=== PATIENT | male | born 1965 | race Caucasian/White ===

== ENCOUNTER 2020-02-21 11:47 | Emergency (ER) | payer OTHER, SELFPAY ==
[2020-02-21] VITALS (11 sets, daily range): BP systolic 107–129; BP diastolic 55–72; PULSE 18–101; RESP 18; TEMP 36.8–36.9; O2SAT 98–100; BMI 47.7
--- NOTE | 2020-02-21 | ECG_ITS ---
Test Reason : CHEST PAIN Blood Pressure : / mmHG Vent. Rate : 096 BPM Atrial Rate : 096 BPM P-R Int : 142 ms QRS Dur : 098 ms QT Int : 384 ms P-R-T Axes : 039 005 041 degrees QTc Int : 485 ms Normal sinus rhythm Nonspecific ST abnormality Abnormal ECG No previous ECGs available Referred By: Generic ED Physician Electronically Signed By:TEMO MEHTA MD
--- NOTE | 2020-02-21 12:53 | PC.NURSE ---
moved to [facility]. states she feels better no pressure on heels which have no breakdown but are red and blanchcable
--- NOTE | 2020-02-21 13:23 | ED_ITS ---
HPI - Chest Pain General Chief Complaint: Dyspnea <Poncho Sanon NP - Last Filed: 02/21/20 18:37> Stated Complaint: CHEST PAIN SOB <Poncho Sanon NP - Last Filed: 02/21/20 18:37> Time Seen by Provider: 02/21/20 13:23 <Poncho Sanon NP - Last Filed: 02/21/20 18:37> Source: patient <Poncho Sanon NP - Last Filed: 02/21/20 18:37> Mode of arrival: ambulatory <Poncho Sanon NP - Last Filed: 02/21/20 18:37> Limitations: no limitations <Poncho Sanon NP - Last Filed: 02/21/20 18:37> History of Present Illness HPI narrative: 54-year-old male who reports past medical history of alcoholic liver cirrhosis he was drinker in the past with abdominal ascites who has had this drained in November at [facility] presents today with complaint of abdominal distention that has been gradually worsening since and now caused him to have shortness of breath. He otherwise denies any fever or chills. He does report that he takes lactulose, spironolactone, furosemide and Zofran otherwise he has no other medical problems according to him. History limited somewhat poor historian Patient consents for obtain records from [facility] in relation to November visit. <Poncho Sanon NP - Last Filed: 02/21/20 18:37> MD complaint: chest pain <Poncho Sanon NP - Last Filed: 02/21/20 18:37> Onset (ago): week(s) <Poncho Sanon NP - Last Filed: 02/21/20 18:37> Related Data Allergies/Adverse Reactions: Allergies Allergy/AdvReac Type Severity Reaction Status Date / Time seafood Allergy Unknown Verified 02/21/20 13:41 <Poncho Sanon NP - Last Filed: 02/21/20 18:37> [facility] Past Medical History Medical History: Medical History (Updated 02/21/20 @ 18:36 by Poncho Sanon NP) CHF (congestive heart failure) Hepatic cirrhosis <Poncho Sanon NP - Last Filed: 02/21/20 18:37> Social History Social History: Social History Alcohol intake: never Smoked in Last 30 Days: No Use of substances other than those prescribed or required for medical reasons: No Advance Directives: No Advance Directives Information Provided: No <Poncho Sanon NP - Last Filed: 02/21/20 18:37> Physical Exam Vital Signs: Vital Signs: Vital Signs Temp Pulse Resp BP Pulse Ox 02/21/20 18:30 98.3 F 98 18 116/62 98 02/21/20 18:09 94 18 127/66 99 02/21/20 17:50 96 129/71 02/21/20 17:45 94 109/57 L 02/21/20 17:40 97 120/67 02/21/20 17:30 98.5 F 96 18 115/57 L 99 02/21/20 17:00 98.3 F 18 L 118/55 L 99 02/21/20 16:46 101 H 18 122/65 99 02/21/20 16:30 98.2 F 95 18 110/67 02/21/20 15:06 90 18 111/72 100 02/21/20 13:42 98.2 F 91 18 107/64 99 Body Mass Index 47.7 <Poncho Sanon NP - Last Filed: 02/21/20 18:37> Vital Signs: Vital Signs Temp Pulse Resp BP Pulse Ox 02/21/20 18:30 98.3 F 98 18 116/62 98 02/21/20 18:09 94 18 127/66 99 02/21/20 17:50 96 129/71 02/21/20 17:45 94 109/57 L 02/21/20 17:40 97 120/67 02/21/20 17:30 98.5 F 96 18 115/57 L 99 02/21/20 17:00 98.3 F 18 L 118/55 L 99 02/21/20 16:46 101 H 18 122/65 99 02/21/20 16:30 98.2 F 95 18 110/67 02/21/20 15:06 90 18 111/72 100 02/21/20 13:42 98.2 F 91 18 107/64 99 Body Mass Index 47.7 <Terry Gonsalez MD - Last Filed: 02/21/20 19:13> Course Course Course Narrative: 1255: Call placed to IR <Poncho Sanon NP - Last Filed: 02/21/20 18:37> I have reviewed the chart <Terry Gonsalez MD - Last Filed: 02/21/20 19:13> Reevaluation(s) Reevaluation #1: Records received from [facility] in relation to his visit there on October 23 2019. he was admitted there for dizziness and presyncope Admission diagnosis include diagnosis of Hepatic encephalopathy Liver cirrhosis Esophageal varices nonbleeding lactic acidosis <Poncho Sanon NP - Last Filed: 02/21/20 18:37> Time: 15:00 <Poncho Sanon NP - Last Filed: 02/21/20 18:37> Reevaluation #2: has been resting comfortably. After paracentesis has been observed in the ED for little over 2 hours. Hemodynamically stable. Ortho was negative. Out of bed ambulatory status with gait. Reports feels much better. Again no evidence of infectious pathology. No evidence of spontaneous bacterial peritonitis. Patient will be discharged home with continuation of his routine medications with instructions to follow-up with his primary care doctor in the next 3-7 days. Clear return follow-up instructions provided. He feels comfortable plan stable for discharge. <Poncho Sanon NP - Last Filed: 02/21/20 18:37> Consultations Consultation #1: 1400: spoke to Caro from IR order confirmed will arrange for ultrasound- guided paracentesis Pending labs. Albumin ordered. <Poncho Sanon NP - Last Filed: 02/21/20 18:37> Consultation #2: Returns from IR at this time where he underwent therapeutic paracentesis and had 10 L removed. Relatively uneventful. Remained stable. For return to the ED reports he feels much better. No pain or discomfort. Will monitor for 1 hour post procedure and recheck ortho spine per radiologist's orders and plan for discharge. Referred to IR note for procedure note. <Poncho Sanon NP - Last Filed: 02/21/20 18:37> Time: 16:35 <Poncho Sanon NP - Last Filed: 02/21/20 18:37> Procedures Paracentesis Additional Comments: [place] [id number] Radiology Signed Patient: Pavel RODRIGUEZPartha MCCURDY#: [id number] : 1965Acct:[id number] Age/Sex: 54 / MADM Date: 02/21/20 Loc: HO.EDDate of Service: Attending Dr: cc: ~ RADIOLOGY Narrative Narrative: Right lower quadrant paracentesis performed using 5 Fr angiocath. Clear yellow fluid removed. No specimen sent. Documented By:MARY BENJAMIN MD02/21/20 1559 Signed By:<Electronically signed by MARY BENJAMIN MD>02/21/20 1600 <Poncho Sanon NP - Last Filed: 02/21/20 18:37> MDM - Chest Pain MDM Narrative Medical decision making narrative: A P of 54-year-old male presenting with abdominal distension/pain with now having shortness of breath in the setting of liver cirrhosis and abdominal ascites on exam significant abdominal distension. No nausea vomiting or diarrhea. No fever. Abdominal exam is reveals no signs symptoms of peritonitis. No tender to palpation. Bedside ultrasound reveals significant fluid load. Will check labs, coagulation factors, cardiac enzymes and have arranged for ultrasound-guided paracentesis if IR is available. He has had paracentesis in the past at [facility] in November records requested with patient's consent. He is resting comfortably no acute distress. No chest pain. Shortness of breath only when he lays down or ambulates. No lower extremity edema. <Poncho Sanon NP - Last Filed: 02/21/20 18:37> Lab Data Result diagrams: : 02/21/20 14:53 02/21/20 13:59 <Poncho Sanon NP - Last Filed: 02/21/20 18:37> Labs: Lab Results 02/21/20 02/21/20 02/21/20 Range/Units 13:59 13:59 13:59 WBC (4.8-10.8) X10*3/uL RBC (4.60-5.80) X10*6/uL Hgb (14.0-18.0) g/dl Hct (42-52) % MCV (80-98) fL MCH (27.0-33.0) pg MCHC (31.0-36.0) g/dl RDW (11.0-16.0) % Plt Count (160-400) X10*3/uL MPV (9.4-12.4) fL Immature Gran % (Auto) (0.0-0.4) % Neut % (Auto) (45-73) % Lymph % (Auto) (20-40) % Dolores % (Auto) (2-11) % Eos % (Auto) (0-4) % Baso % (Auto) (0-2) % Lymph # (Auto) (1.2-4.9) X10*3/uL Dolores # (Auto) (0.1-1.2) X10*3/uL Eos # (Auto) (0.0-0.4) X10*3/uL Baso # (Auto) (0.0-0.2) X10*3/uL Abs Immat Gran (auto) (0.00-0.03) X10*3/uL Absolute Neuts (auto) (2.0-8.3) X10*3/uL Absolute Nucleated RBC (0.0-0.012) X10*3/uL Nucleated RBC % (auto) (0.0-0.2) /100WBC Smear Tech's Comments PT 22.3 H (10.8-13.0) SEC INR 1.9 H (0.9-1.1) APTT 39.2 H (24.1-38.0) SEC Sodium 133 L (135-145) mmol/L Potassium 3.8 (3.3-5.1) mmol/l Chloride 104 (96-108) mmol/L Carbon Dioxide 26 (22-29) mmol/L Anion Gap 7 L (12-20) BUN 10 (9-16) mg/dL Creatinine 0.83 (0.5-1.4) mg/dL Estim Creat Clear Calc 124.9 Estimated GFR > 60 Random Glucose 97 (60-115) mg/dL Calcium 8.2 L (8.4-10.2) mg/dL Total Bilirubin 3.0 H (0.0-1.0) mg/dL Direct Bilirubin (0.0-0.5) mg/dL AST 41 H (5-37) U/L ALT 19 (0-40) U/L Alkaline Phosphatase 140 H (39-117) U/L Troponin I High Sens < 3.5 (<3.5-35.0) ng/L Total Protein 7.8 (6.5-8.0) g/dL Albumin 2.1 L (3.5-5.0) g/dL Urine Color Urine Appearance Urine pH (5.0-8.0) Ur Specific [place] (1.005-1.025) Urine Protein (NEG-TRACE) MG/DL Urine Glucose (UA) (NEG) MG/DL Urine Ketones (NEG) MG/DL Urine Blood (NEG) Urine Nitrite (NEG) Ur Leukocyte Esterase (NEG) Urine RBC (0) /HPF Urine WBC (0-4) /HPF Ur Squamous Epith Cells /LPF Urine Bacteria /LPF Urine Opiates Screen (Not Detect) Ur Barbiturates Screen (Not Detect) Ur Phencyclidine Scrn (Not Detect) Ur Amphetamines Screen (Not Detect) U Benzodiazepines Scrn (Not Detect) Urine Cocaine Screen (Not Detect) U Marijuana (THC) Screen (Not Detect) 02/21/20 02/21/20 02/21/20 Range/Units 14:53 14:53 18:22 WBC 3.5 L (4.8-10.8) X10*3/uL RBC 2.75 L (4.60-5.80) X10*6/uL Hgb 8.1 L (14.0-18.0) g/dl Hct 26.7 L (42-52) % MCV 97.1 (80-98) fL MCH 29.5 (27.0-33.0) pg MCHC 30.3 L (31.0-36.0) g/dl RDW 17.9 H (11.0-16.0) % Plt Count 53 L (160-400) X10*3/uL MPV 11.0 (9.4-12.4) fL Immature Gran % (Auto) 0.6 H (0.0-0.4) % Neut % (Auto) 68.5 (45-73) % Lymph % (Auto) 16.6 L (20-40) % Dolores % (Auto) 11.1 H (2-11) % Eos % (Auto) 2.6 (0-4) % Baso % (Auto) 0.6 (0-2) % Lymph # (Auto) 0.6 L (1.2-4.9) X10*3/uL Dolores # (Auto) 0.4 (0.1-1.2) X10*3/uL Eos # (Auto) 0.1 (0.0-0.4) X10*3/uL Baso # (Auto) 0.0 (0.0-0.2) X10*3/uL Abs Immat Gran (auto) 0.02 (0.00-0.03) X10*3/uL Absolute Neuts (auto) 2.4 (2.0-8.3) X10*3/uL Absolute Nucleated RBC 0.000 (0.0-0.012) X10*3/uL Nucleated RBC % (auto) 0.0 (0.0-0.2) /100WBC Smear Tech's Comments VERIFIED PT (10.8-13.0) SEC INR (0.9-1.1) APTT (24.1-38.0) SEC Sodium (135-145) mmol/L Potassium (3.3-5.1) mmol/l Chloride (96-108) mmol/L Carbon Dioxide (22-29) mmol/L Anion Gap (12-20) BUN (9-16) mg/dL Creatinine (0.5-1.4) mg/dL Estim Creat Clear Calc Estimated GFR Random Glucose (60-115) mg/dL Calcium (8.4-10.2) mg/dL Total Bilirubin 2.7 H (0.0-1.0) mg/dL Direct Bilirubin 1.3 H (0.0-0.5) mg/dL AST 40 H (5-37) U/L ALT 20 (0-40) U/L Alkaline Phosphatase 140 H (39-117) U/L Troponin I High Sens (<3.5-35.0) ng/L Total Protein 7.5 (6.5-8.0) g/dL Albumin 2.0 L (3.5-5.0) g/dL Urine Color YELLOW Urine Appearance CLEAR Urine pH 7.0 (5.0-8.0) Ur Specific [place] 1.020 (1.005-1.025) Urine Protein NEG (NEG-TRACE) MG/DL Urine Glucose (UA) NEG (NEG) MG/DL Urine Ketones NEG (NEG) MG/DL Urine Blood 1+ H (NEG) Urine Nitrite NEG (NEG) Ur Leukocyte Esterase NEG (NEG) Urine RBC 5-9 H (0) /HPF Urine WBC 0 (0-4) /HPF Ur Squamous Epith Cells TRACE /LPF Urine Bacteria NONE /LPF Urine Opiates Screen (Not Detect) Ur Barbiturates Screen (Not Detect) Ur Phencyclidine Scrn (Not Detect) Ur Amphetamines Screen (Not Detect) U Benzodiazepines Scrn (Not Detect) Urine Cocaine Screen (Not Detect) U Marijuana (THC) Screen (Not Detect) 02/21/20 Range/Units 18:22 WBC (4.8-10.8) X10*3/uL RBC (4.60-5.80) X10*6/uL Hgb (14.0-18.0) g/dl Hct (42-52) % MCV (80-98) fL MCH (27.0-33.0) pg MCHC (31.0-36.0) g/dl RDW (11.0-16.0) % Plt Count (160-400) X10*3/uL MPV (9.4-12.4) fL Immature Gran % (Auto) (0.0-0.4) % Neut % (Auto) (45-73) % Lymph % (Auto) (20-40) % Dolores % (Auto) (2-11) % Eos % (Auto) (0-4) % Baso % (Auto) (0-2) % Lymph # (Auto) (1.2-4.9) X10*3/uL Dolores # (Auto) (0.1-1.2) X10*3/uL Eos # (Auto) (0.0-0.4) X10*3/uL Baso # (Auto) (0.0-0.2) X10*3/uL Abs Immat Gran (auto) (0.00-0.03) X10*3/uL Absolute Neuts (auto) (2.0-8.3) X10*3/uL Absolute Nucleated RBC (0.0-0.012) X10*3/uL Nucleated RBC % (auto) (0.0-0.2) /100WBC Smear Tech's Comments PT (10.8-13.0) SEC INR (0.9-1.1) APTT (24.1-38.0) SEC Sodium (135-145) mmol/L Potassium (3.3-5.1) mmol/l Chloride (96-108) mmol/L Carbon Dioxide (22-29) mmol/L Anion Gap (12-20) BUN (9-16) mg/dL Creatinine (0.5-1.4) mg/dL Estim Creat Clear Calc Estimated GFR Random Glucose (60-115) mg/dL Calcium (8.4-10.2) mg/dL Total Bilirubin (0.0-1.0) mg/dL Direct Bilirubin (0.0-0.5) mg/dL AST (5-37) U/L ALT (0-40) U/L Alkaline Phosphatase (39-117) U/L Troponin I High Sens (<3.5-35.0) ng/L Total Protein (6.5-8.0) g/dL Albumin (3.5-5.0) g/dL Urine Color Urine Appearance Urine pH (5.0-8.0) Ur Specific [place] (1.005-1.025) Urine Protein (NEG-TRACE) MG/DL Urine Glucose (UA) (NEG) MG/DL Urine Ketones (NEG) MG/DL Urine Blood (NEG) Urine Nitrite (NEG) Ur Leukocyte Esterase (NEG) Urine RBC (0) /HPF Urine WBC (0-4) /HPF Ur Squamous Epith Cells /LPF Urine Bacteria /LPF Urine Opiates Screen Not Detected (Not Detect) Ur Barbiturates Screen Not Detected (Not Detect) Ur Phencyclidine Scrn Not Detected (Not Detect) Ur Amphetamines Screen Not Detected (Not Detect) U Benzodiazepines Scrn Not Detected (Not Detect) Urine Cocaine Screen Not Detected (Not Detect) U Marijuana (THC) Screen Not Detected (Not Detect) <Poncho Sanon NP - Last Filed: 02/21/20 18:37> Lab Results 02/21/20 02/21/20 02/21/20 Range/Units 13:59 13:59 13:59 WBC (4.8-10.8) X10*3/uL RBC (4.60-5.80) X10*6/uL Hgb (14.0-18.0) g/dl Hct (42-52) % MCV (80-98) fL MCH (27.0-33.0) pg MCHC (31.0-36.0) g/dl RDW (11.0-16.0) % Plt Count (160-400) X10*3/uL MPV (9.4-12.4) fL Immature Gran % (Auto) (0.0-0.4) % Neut % (Auto) (45-73) % Lymph % (Auto) (20-40) % Dolores % (Auto) (2-11) % Eos % (Auto) (0-4) % Baso % (Auto) (0-2) % Lymph # (Auto) (1.2-4.9) X10*3/uL Dolores # (Auto) (0.1-1.2) X10*3/uL Eos # (Auto) (0.0-0.4) X10*3/uL Baso # (Auto) (0.0-0.2) X10*3/uL Abs Immat Gran (auto) (0.00-0.03) X10*3/uL Absolute Neuts (auto) (2.0-8.3) X10*3/uL Absolute Nucleated RBC (0.0-0.012) X10*3/uL Nucleated RBC % (auto) (0.0-0.2) /100WBC Smear Tech's Comments PT 22.3 H (10.8-13.0) SEC INR 1.9 H (0.9-1.1) APTT 39.2 H (24.1-38.0) SEC Sodium 133 L (135-145) mmol/L Potassium 3.8 (3.3-5.1) mmol/l Chloride 104 (96-108) mmol/L Carbon Dioxide 26 (22-29) mmol/L Anion Gap 7 L (12-20) BUN 10 (9-16) mg/dL Creatinine 0.83 (0.5-1.4) mg/dL Estim Creat Clear Calc 124.9 Estimated GFR > 60 Random Glucose 97 (60-115) mg/dL Calcium 8.2 L (8.4-10.2) mg/dL Total Bilirubin 3.0 H (0.0-1.0) mg/dL Direct Bilirubin (0.0-0.5) mg/dL AST 41 H (5-37) U/L ALT 19 (0-40) U/L Alkaline Phosphatase 140 H (39-117) U/L Troponin I High Sens < 3.5 (<3.5-35.0) ng/L Total Protein 7.8 (6.5-8.0) g/dL Albumin 2.1 L (3.5-5.0) g/dL Urine Color Urine Appearance Urine pH (5.0-8.0) Ur Specific [place] (1.005-1.025) Urine Protein (NEG-TRACE) MG/DL Urine Glucose (UA) (NEG) MG/DL Urine Ketones (NEG) MG/DL Urine Blood (NEG) Urine Nitrite (NEG) Ur Leukocyte Esterase (NEG) Urine RBC (0) /HPF Urine WBC (0-4) /HPF Ur Squamous Epith Cells /LPF Urine Bacteria /LPF Urine Opiates Screen (Not Detect) Ur Barbiturates Screen (Not Detect) Ur Phencyclidine Scrn (Not Detect) Ur Amphetamines Screen (Not Detect) U Benzodiazepines Scrn (Not Detect) Urine Cocaine Screen (Not Detect) U Marijuana (THC) Screen (Not Detect) 02/21/20 02/21/20 02/21/20 Range/Units 14:53 14:53 18:22 WBC 3.5 L (4.8-10.8) X10*3/uL RBC 2.75 L (4.60-5.80) X10*6/uL Hgb 8.1 L (14.0-18.0) g/dl Hct 26.7 L (42-52) % MCV 97.1 (80-98) fL MCH 29.5 (27.0-33.0) pg MCHC 30.3 L (31.0-36.0) g/dl RDW 17.9 H (11.0-16.0) % Plt Count 53 L (160-400) X10*3/uL MPV 11.0 (9.4-12.4) fL Immature Gran % (Auto) 0.6 H (0.0-0.4) % Neut % (Auto) 68.5 (45-73) % Lymph % (Auto) 16.6 L (20-40) % Dolores % (Auto) 11.1 H (2-11) % Eos % (Auto) 2.6 (0-4) % Baso % (Auto) 0.6 (0-2) % Lymph # (Auto) 0.6 L (1.2-4.9) X10*3/uL Dolores # (Auto) 0.4 (0.1-1.2) X10*3/uL Eos # (Auto) 0.1 (0.0-0.4) X10*3/uL Baso # (Auto) 0.0 (0.0-0.2) X10*3/uL Abs Immat Gran (auto) 0.02 (0.00-0.03) X10*3/uL Absolute Neuts (auto) 2.4 (2.0-8.3) X10*3/uL Absolute Nucleated RBC 0.000 (0.0-0.012) X10*3/uL Nucleated RBC % (auto) 0.0 (0.0-0.2) /100WBC Smear Tech's Comments VERIFIED PT (10.8-13.0) SEC INR (0.9-1.1) APTT (24.1-38.0) SEC Sodium (135-145) mmol/L Potassium (3.3-5.1) mmol/l Chloride (96-108) mmol/L Carbon Dioxide (22-29) mmol/L Anion Gap (12-20) BUN (9-16) mg/dL Creatinine (0.5-1.4) mg/dL Estim Creat Clear Calc Estimated GFR Random Glucose (60-115) mg/dL Calcium (8.4-10.2) mg/dL Total Bilirubin 2.7 H (0.0-1.0) mg/dL Direct Bilirubin 1.3 H (0.0-0.5) mg/dL AST 40 H (5-37) U/L ALT 20 (0-40) U/L Alkaline Phosphatase 140 H (39-117) U/L Troponin I High Sens (<3.5-35.0) ng/L Total Protein 7.5 (6.5-8.0) g/dL Albumin 2.0 L (3.5-5.0) g/dL Urine Color YELLOW Urine Appearance CLEAR Urine pH 7.0 (5.0-8.0) Ur Specific [place] 1.020 (1.005-1.025) Urine Protein NEG (NEG-TRACE) MG/DL Urine Glucose (UA) NEG (NEG) MG/DL Urine Ketones NEG (NEG) MG/DL Urine Blood 1+ H (NEG) Urine Nitrite NEG (NEG) Ur Leukocyte Esterase NEG (NEG) Urine RBC 5-9 H (0) /HPF Urine WBC 0 (0-4) /HPF Ur Squamous Epith Cells TRACE /LPF Urine Bacteria NONE /LPF Urine Opiates Screen (Not Detect) Ur Barbiturates Screen (Not Detect) Ur Phencyclidine Scrn (Not Detect) Ur Amphetamines Screen (Not Detect) U Benzodiazepines Scrn (Not Detect) Urine Cocaine Screen (Not Detect) U Marijuana (THC) Screen (Not Detect) 02/21/20 Range/Units 18:22 WBC (4.8-10.8) X10*3/uL RBC (4.60-5.80) X10*6/uL Hgb (14.0-18.0) g/dl Hct (42-52) % MCV (80-98) fL MCH (27.0-33.0) pg MCHC (31.0-36.0) g/dl RDW (11.0-16.0) % Plt Count (160-400) X10*3/uL MPV (9.4-12.4) fL Immature Gran % (Auto) (0.0-0.4) % Neut % (Auto) (45-73) % Lymph % (Auto) (20-40) % Dolores % (Auto) (2-11) % Eos % (Auto) (0-4) % Baso % (Auto) (0-2) % Lymph # (Auto) (1.2-4.9) X10*3/uL [place] # (Auto) (0.1-1.2) X10*3/uL Eos # (Auto) (0.0-0.4) X10*3/uL Baso # (Auto) (0.0-0.2) X10*3/uL Abs Immat Gran (auto) (0.00-0.03) X10*3/uL Absolute Neuts (auto) (2.0-8.3) X10*3/uL Absolute Nucleated RBC (0.0-0.012) X10*3/uL Nucleated RBC % (auto) (0.0-0.2) /100WBC Smear Tech's Comments PT (10.8-13.0) SEC INR (0.9-1.1) APTT (24.1-38.0) SEC Sodium (135-145) mmol/L Potassium (3.3-5.1) mmol/l Chloride (96-108) mmol/L Carbon Dioxide (22-29) mmol/L Anion Gap (12-20) BUN (9-16) mg/dL Creatinine (0.5-1.4) mg/dL Estim Creat Clear Calc Estimated GFR Random Glucose (60-115) mg/dL Calcium (8.4-10.2) mg/dL Total Bilirubin (0.0-1.0) mg/dL Direct Bilirubin (0.0-0.5) mg/dL AST (5-37) U/L ALT (0-40) U/L Alkaline Phosphatase (39-117) U/L Troponin I High Sens (<3.5-35.0) ng/L Total Protein (6.5-8.0) g/dL Albumin (3.5-5.0) g/dL Urine Color Urine Appearance Urine pH (5.0-8.0) Ur Specific [place] (1.005-1.025) Urine Protein (NEG-TRACE) MG/DL Urine Glucose (UA) (NEG) MG/DL Urine Ketones (NEG) MG/DL Urine Blood (NEG) Urine Nitrite (NEG) Ur Leukocyte Esterase (NEG) Urine RBC (0) /HPF Urine WBC (0-4) /HPF Ur Squamous Epith Cells /LPF Urine Bacteria /LPF Urine Opiates Screen Not Detected (Not Detect) Ur Barbiturates Screen Not Detected (Not Detect) Ur Phencyclidine Scrn Not Detected (Not Detect) Ur Amphetamines Screen Not Detected (Not Detect) U Benzodiazepines Scrn Not Detected (Not Detect) Urine Cocaine Screen Not Detected (Not Detect) U Marijuana (THC) Screen Not Detected (Not Detect) <Terry Gonsalez MD - Last Filed: 02/21/20 19:13> Imaging Data Chest x-ray: Radiologist's impression: [address] [address] XRay Report Signed Patient: Jacob MonacoRomero#: [id number] : 1965Acct:[id number] Age/Sex: 54 / MADM Date: 02/21/20 Loc: HO.ED Attending Dr: Ordering Physician: Poncho Sanon NP Date of Service: 02/21/20 Procedure(s): XR chest 1V Accession Number(s): [id number] cc: Poncho Sanon IT APPLICATION SUPPORT ANALYST~ EXAMINATION: XR CHEST CLINICAL INFORMATION: Chest pain COMPARISON: None TECHNIQUE: Frontal view of the chest was obtained. FINDINGS: Cardiac silhouette is normal in size. Prominent density projecting over the heart in the region of the GE junction is suspected to represent a prominent hiatal hernia. Low lung volumes. No gross lobar consolidation. No pleural effusion or pneumothorax. IMPRESSION: 1. No acute pulmonary pathology. 2. Suspected hiatal hernia. Dictated By:BRADY JIMENEZ MD Signed By:<Electronically signed by BRADY JIMENEZ MD in [place]>02/21/20 1403 DD/ 1325 TD/TT: Feed House Supervisor: PD <Poncho Sanon NP - Last Filed: 02/21/20 18:37> Paracentesis ultrasound: Radiologist's impression: Artemio Monaco 54 M 1965 [place] [id number] Ultrasound Report Signed Patient: Artemio MonacoMR#: [id number] : 1965Acct:[id number] Age/Sex: 54 / MADM Date: 02/21/20 Loc: HO.ED Attending Dr: Ordering Physician: Poncho Sanon NP Date of Service: 02/21/20 Procedure(s): US paracentesis abd w/image Accession Number(s): [id number] cc: Poncho Sanon IT APPLICATION SUPPORT ANALYST~ EXAMINATION: ULTRASOUND-GUIDED PARACENTESIS CLINICAL INFORMATION: Ascites. Abdominal pain. COMPARISON: None TECHNIQUE: Procedure and risks and benefits including bleeding, infection and low blood pressure were discussed with the patient and informed consent was obtained. The right lower quadrant was prepped and draped in the usual sterile fashion. The skin and soft tissues were anesthetized with 1% lidocaine plain. Using ultrasound guidance and a 5 Haitian rapid centesis catheter, access to the ascitic fluid was obtained. 10 L of clear yellow fluid was removed. No diagnostic specimen was sent. FINDINGS: There is a large amount of ascites. IMPRESSION: Ultrasound-guided paracentesis. Dictated By:MARY BENJAMIN MD Signed By:<Electronically signed by MARY BENJAMIN MD in [place]>02/21/20 1659 DD/ 1327 TD/TT: Feed House Supervisor: GIOVANNI <Poncho Sanon NP - Last Filed: 02/21/20 18:37> Discharge Plan Discharge Clinical Impression: Chronic liver disease and cirrhosis, Status post abdominal paracentesis Abdominal ascites Qualifiers: Ascites type: due to alcoholic cirrhosis Qualified Code(s): K70.31 - Alcoholic cirrhosis of liver with ascites <Poncho Sanon NP - Last Filed: 02/21/20 18:37> Patient Disposition: Home, Self-Care <Poncho Sanon NP - Last Filed: 02/21/20 18:37> Instructions: Cirrhosis (ED), Ascites (ED), Paracentesis (DC) <Poncho Sanon NP - Last Filed: 02/21/20 18:37> Referrals: Miroslava Murphy MD [Primary Care Provider] - 2 days <Poncho Sanon NP - Last Filed: 02/21/20 18:37> Interventions: ED Discharge Assessment Last Done: 02/21/20 19:10 <Poncho Sanon NP - Last Filed: 02/21/20 18:37>
--- NOTE | 2020-02-21 13:27 | US_ITS ---
EXAMINATION: ULTRASOUND-GUIDED PARACENTESIS CLINICAL INFORMATION: Ascites. Abdominal pain. COMPARISON: None TECHNIQUE: Procedure and risks and benefits including bleeding, infection and low blood pressure were discussed with the patient and informed consent was obtained. The right lower quadrant was prepped and draped in the usual sterile fashion. The skin and soft tissues were anesthetized with 1% lidocaine plain. Using ultrasound guidance and a 5 Greenlandic rapid centesis catheter, access to the ascitic fluid was obtained. 10 L of clear yellow fluid was removed. No diagnostic specimen was sent. FINDINGS: There is a large amount of ascites. IMPRESSION: Ultrasound-guided paracentesis.
[2020-02-21 14:14] LABS: INTERNATIONAL NORM RATIO 1.9 (0.9-1.1); Prothrombin Time 22.3 SEC (10.8-13.0)
[2020-02-21 14:17] LABS: Partial Thromboplastin Time 39.2 SEC (24.1-38.0)
[2020-02-21 14:33] LABS: Alanine Aminotransferase 19 U/L (0-40); Albumin Level 2.1 g/dL (3.5-5.0); Alkaline Phosphatase 140 U/L (39-117); Anion Gap 7 (12-20); Aspartate Amino Transferase 41 U/L (5-37); Blood Urea Nitrogen 10 mg/dL (9-16); Calcium 8.2 mg/dL (8.4-10.2); Carbon Dioxide 26 mmol/L (22-29); Chloride 104 mmol/L (96-108); Creatinine Clr Calc Pharmacy 124.9; Estimated Glomerular Filt Rate > 60; Glucose Random 97 mg/dL (60-115); Potassium 3.8 mmol/l (3.3-5.1); Sodium 133 mmol/L (135-145); Total Protein 7.8 g/dL (6.5-8.0)
[2020-02-21 14:35] LABS: Troponin-I High Sensitivity < 3.5 ng/L (<3.5-35.0)
[2020-02-21 15:00] LABS: Basophils Percent Auto 0.6 % (0-2); Eosinophils Absolute Auto 0.1 X10*3/uL (0.0-0.4); Eosinophils Percent Auto 2.6 % (0-4); Hemoglobin 8.1 g/dl (14.0-18.0); Imm Gran Abs Auto 0.02 X10*3/uL (0.00-0.03); Imm Gran Pct Auto 0.6 % (0.0-0.4); Lymphocytes Absolute Auto 0.6 X10*3/uL (1.2-4.9); Lymphocytes Percent Auto 16.6 % (20-40); MANUAL DIFF FLAG SCAN; Mean Corpuscular HGB Conc 30.3 g/dl (31.0-36.0); Mean Corpuscular Hemoglobin 29.5 pg (27.0-33.0); Mean Corpuscular Volume 97.1 fL (80-98); Monocytes Absolute Auto 0.4 X10*3/uL (0.1-1.2); Monocytes Percent Auto 11.1 % (2-11); Neutrophils Absolute Auto 2.4 X10*3/uL (2.0-8.3); Neutrophils Percent Auto 68.5 % (45-73); Red Blood Count 2.75 X10*6/uL (4.60-5.80); Red Cell Distribution Width 17.9 % (11.0-16.0); SCAN SMEAR FLAG 1; White Blood Count 3.5 X10*3/uL (4.8-10.8)
[2020-02-21 15:06] LABS: Hematocrit 26.7 % (42-52)
[2020-02-21 15:24] LABS: Platelet Count 53 X10*3/uL (160-400)
[2020-02-21 15:25] LABS: SLIDE REVIEW VERIFIED
[2020-02-21 15:29] LABS: Alanine Aminotransferase 20 U/L (0-40); Alkaline Phosphatase 140 U/L (39-117); Aspartate Amino Transferase 40 U/L (5-37); Bilirubin Direct 1.3 mg/dL (0.0-0.5); Bilirubin Total 2.7 mg/dL (0.0-1.0); Total Protein 7.5 g/dL (6.5-8.0)
[2020-02-21] MEDS: Albumin Human 25 % 100 ML IV (15:35)
--- NOTE | 2020-02-21 15:51 | PC.NURSE ---
Off unit with ANNELISE lepe at IR.
--- NOTE | 2020-02-21 15:52 | PC.NURSE ---
late entry from triage. pt has very distnded abd. is taught. states size has been increasing.
--- NOTE | 2020-02-21 15:59 | HO.RADPN ---
RADIOLOGY Narrative Narrative: Right lower quadrant paracentesis performed using 5 Fr angiocath. Clear yellow fluid removed. No specimen sent.
--- NOTE | 2020-02-21 16:45 | PC.NURSE ---
back from IR. 10L removed. no sob. tolerated all well. will be monitored for full hr in ed b/f discharge. abd is smaller and softer.
[2020-02-21] MEDS: Lidocaine HCl 1 % MPF 5 ML VIAL INFILTRATI (16:55)
[2020-02-21 18:43] LABS: Glucose Urine UA NEG (NEG); Leukocyte Esterase Urine NEG (NEG); Nitrite Urine NEG (NEG); Urine Blood 1+ (NEG); Urine Ketones NEG (NEG); Urine Protein NEG (NEG-TRACE)
[2020-02-21 18:48] LABS: Appearance Urine CLEAR; Color Urine YELLOW
[2020-02-21 18:51] LABS: WBC Urine 0 /HPF (0-4)
[2020-02-21 18:52] LABS: Squamous Epithelial Cell Urine TRACE /LPF
[2020-02-21 19:03] LABS: Amphetamine Screen Urine Not Detected (Not Detect); Barbiturates, Urine Not Detected (Not Detect); Benzodiazepines Screen Urine Not Detected (Not Detect); Cannabinoid Screen Urine Not Detected (Not Detect); Cocaine Screen Urine Not Detected (Not Detect); Opiate Screen Urine Not Detected (Not Detect); Phencyclidine Screen Urine Not Detected (Not Detect)
== END 2020-02-21 19:13 | disposition home or self-care (01) ==
PROVIDERS: Nurse Practitioner Primary Care; Emergency Provider Emergency Medicine; PCP Student in an Organized Health Care Education/Training Program
DX: K70.31 Alcoholic cirrhosis of liver with ascites (principal); R07.9 Chest pain, unspecified; F10.10 Alcohol abuse, uncomplicated; Z79.899 Other long term (current) drug therapy
CPT/HCPCS: 36415; 49083; 71045; 80053; 80076; 80307; 81001; 82248; 84484; 85025; 85610; 85730; 93005; 96365; 99285; P9047

== ENCOUNTER 2020-04-08 10:23 | Emergency (ER) | payer MEDICAID, SELFPAY ==
[2020-04-08 10:53] VITALS: BP 133/78; PULSE 96; RESP 16; TEMP 36.8; O2SAT 100; BMI 44.1
--- NOTE | 2020-04-08 10:57 | US_ITS ---
EXAMINATION: ULTRASOUND-GUIDED PARACENTESIS CLINICAL INFORMATION: Cirrhosis with ascites COMPARISON: February 21, 2020 TECHNIQUE: Ultrasound-guided thoracentesis FINDINGS: Ultrasound demonstrates large amount of ascites within the right upper quadrant. Using sterile technique and ultrasound guidance a 5 [place] Yueh needle was directed into the fluid collection and a total of 8.5 L of clear yellow fluid removed. Patient tolerated procedure without difficulty. US/US paracentesis abd w/image IMPRESSION: Paracentesis with removal of 8.5 L of clear yellow fluid.
--- NOTE | 2020-04-08 11:07 | ED.GENADULT ---
HPI - General Adult General Chief complaint: General Medical <Raj Tapia NP - Last Filed: 04/08/20 16:15> Stated complaint: abd swelling <Raj Tapia NP - Last Filed: 04/08/20 16:15> Time Seen by Provider: 04/08/20 10:52 <Raj Tapia NP - Last Filed: 04/08/20 16:15> Source: patient <Raj Tapia NP - Last Filed: 04/08/20 16:15> Mode of arrival: ambulatory <Raj Tapia NP - Last Filed: 04/08/20 16:15> Limitations: no limitations <Raj Tapia NP - Last Filed: 04/08/20 16:15> History of Present Illness HPI narrative: 54-year-old male with a past medical history of alcoholic liver cirrhosis Here with abdominal distension times a week. The patient tells me he has had multiple paracentesis. last 1 was February 15 here at this facility. Patient has upcoming appointment with GI. Unsure of name a GI doctor. He denies any abdominal pain, fevers, chills, vomiting, diarrhea. is not currently drinking alcohol. patient has been compliant with his Lasix and Aldactone at home. He does report some mild shortness of breath but no cough. No chest pain. <Raj Tapia NP - Last Filed: 04/08/20 16:15> Onset (ago): week(s) <Raj Tapia NP - Last Filed: 04/08/20 16:15> Location: abdomen <Raj Tapia NP - Last Filed: 04/08/20 16:15> Associated symptoms: denies other symptoms <Raj Tapia NP - Last Filed: 04/08/20 16:15> Treatments prior to arrival: none <Raj Tapia NP - Last Filed: 04/08/20 16:15> Related Data Allergies/adverse reactions: Allergies Allergy/AdvReac Type Severity Reaction Status Date / Time seafood Allergy Unknown Verified 02/21/20 13:41 <Raj Tapia NP - Last Filed: 04/08/20 16:15> Review of Systems Review of Systems: Yes all other systems are reviewed and are negative <Raj Tapia NP - Last Filed: 04/08/20 16:15> Constitutional: Constitutional: Reports no additional constitutional complaints, Denies body ache(s), Denies chills, Denies fever(s), Denies headache(s) and Denies weakness <Raj Tapia NP - Last Filed: 04/08/20 16:15> Eyes: Eyes: Reports no additional eye complaints and Denies change in vision <Raj Tapia NP - Last Filed: 04/08/20 16:15> ENT: Reports system reviewed and no additional complaints, except as documented, Denies dizziness, Denies headache(s), Denies nasal congestion, Denies nasal discharge and Denies neck pain <Raj Tapia NP - Last Filed: 04/08/20 16:15> Cardiovascular: Cardiovascular: Reports no additional cardiovascular complaints, Denies chest pain, Denies leg edema and Reports dyspnea <Raj Tapia NP - Last Filed: 04/08/20 16:15> Respiratory: Respiratory: Reports no additional respiratory complaints, Denies cough and Reports dyspnea <Raj Tapia NP - Last Filed: 04/08/20 16:15> Gastrointestinal: Gastrointestinal: Reports no additional gastrointestinal complaints, Denies abdominal pain, Denies diarrhea, Denies nausea and Denies vomiting <Raj Tapia NP - Last Filed: 04/08/20 16:15> Comments: Abdominal distension <Raj Tapia NP - Last Filed: 04/08/20 16:15> Genitourinary: Genitourinary: Denies urinary incontinence <Raj Tapia NP - Last Filed: 04/08/20 16:15> Musculoskeletal: Musculoskeletal: Reports no additional musculoskeletal complaints, Denies back pain, Denies arthralgias, Denies joint swelling, Denies neck pain, Denies numbness and Denies tingling <Raj Tapia NP - Last Filed: 04/08/20 16:15> Integumentary/Breasts: Skin/Breast: Reports system reviewed and no additional complaints, except as docu and Denies rash <Raj Tapia NP - Last Filed: 04/08/20 16:15> Neurologic: Reports system reviewed and no additional complaints, except as documented, Denies Abnormal speech present, Denies dizziness, Denies headache(s), Denies numbness, Denies tingling and Denies weakness <Raj Tapia NP - Last Filed: 04/08/20 16:15> [facility] Past Medical History Attestation statement: The following information was validated with the patient. <Raj Tapia NP - Last Filed: 04/08/20 16:15> Source: old records reviewed and nursing notes reviewed <Raj Tapia NP - Last Filed: 04/08/20 16:15> Medical History: Medical History CHF (congestive heart failure) Hepatic cirrhosis <Raj Tapia NP - Last Filed: 04/08/20 16:15> Social History Social History: Social History Alcohol intake: never Advance Directives: No Advance Directives Information Provided: No <Raj Tapia NP - Last Filed: 04/08/20 16:15> Physical Exam Vital Signs: Vital Signs: Last Vital Signs Temp 98.4 F 04/08/20 11:37 Pulse 94 04/08/20 14:53 Resp 16 04/08/20 14:53 BP 118/65 04/08/20 14:53 Pulse Ox 100 04/08/20 14:53 Body Mass Index 44.1 <Raj Tapia NP - Last Filed: 04/08/20 16:15> Vital Signs: Last Vital Signs Temp 98.4 F 04/08/20 11:37 Pulse 94 04/08/20 14:53 Resp 16 04/08/20 14:53 BP 118/65 04/08/20 14:53 Pulse Ox 100 04/08/20 14:53 Body Mass Index 44.1 <Terry Gonsalez MD - Last Filed: 04/26/20 20:29> Const: General: cooperative, healthy appearing, comfortable and no acute distress <Raj Tapia NP - Last Filed: 04/08/20 16:15> Orientation/consciousness: patient oriented x3 <Raj Tapia NP - Last Filed: 04/08/20 16:15> Limitations: no limitations <Raj Tapia NP - Last Filed: 04/08/20 16:15> HENMT: Head: Yes normal to inspection <Raj Tapia NP - Last Filed: 04/08/20 16:15> Ears: hearing grossly normal bilaterally <Raj Tapia NP - Last Filed: 04/08/20 16:15> General nose exam: Normal external nose present <Raj Tapia NP - Last Filed: 04/08/20 16:15> Face and sinus: Yes normal facial exam <Raj Tapia NP - Last Filed: 04/08/20 16:15> Mouth: Normal oral and palatal mucosa present <Raj Tapia NP - Last Filed: 04/08/20 16:15> Throat: Yes posterior oropharynx normal <Raj Tapia NP - Last Filed: 04/08/20 16:15> Eyes: General: appearance normal, both eyes and all related structures <Raj Tapia NP - Last Filed: 04/08/20 16:15> Pupils: Equal, round and reactive pupils present <Raj Tapia NP - Last Filed: 04/08/20 16:15> Neck: Neck: Yes normal visual inspection <Raj Tapia NP - Last Filed: 04/08/20 16:15> Chest: Chest palpation & inspection: normal inspection of the chest <Raj Tapia NP - Last Filed: 04/08/20 16:15> Resp: Effort & Inspection: normal respiratory effort <Raj Tapia NP - Last Filed: 04/08/20 16:15> Auscultation: clear to auscultation bilaterally <Raj Tapia NP - Last Filed: 04/08/20 16:15> Cardio: Rate: regular rate <Raj Tapia NP - Last Filed: 04/08/20 16:15> Rhythm: regular rhythm <Raj Tapia NP - Last Filed: 04/08/20 16:15> Peripheral pulses: Peripheral pulses 2+ throughout <Raj Tapia NP - Last Filed: 04/08/20 16:15> GI: Other: Abdominal distension <aRj Tapia NP - Last Filed: 04/08/20 16:15> Inspection: Yes normal to inspection <Raj Tapia EN[employer] LEVEL ELECTRICAL ENGINEER - Last Filed: 04/08/20 16:15> Palpation (GI): Firmness to palpation present (GI), nontender, no guarding and not rigid <Raj Tapia NP - Last Filed: 04/08/20 16:15> Auscultation: normal bowel sounds <Raj Tapia NP - Last Filed: 04/08/20 16:15> Back/Spine/Pelvis: Thoracic/Lumbar Spine: thoracic and lumbar spine normal to inspection <Raj Tapia EN[employer] LEVEL ELECTRICAL ENGINEER - Last Filed: 04/08/20 16:15> Skin: General skin exam: no rashes or lesions noted <Raj Tapia NP - Last Filed: 04/08/20 16:15> Neuro: General: patient oriented x3, no focal motor deficits and normal sensation to monofilament <Raj Tapia ENTRY LEVEL ELECTRICAL ENGINEER - Last Filed: 04/08/20 16:15> Cranial nerves: Yes Equal, round and reactive pupils present <Raj Tapia NP - Last Filed: 04/08/20 16:15> Cognition (Neuro): normal cognition <Raj Tapia NP - Last Filed: 04/08/20 16:15> Speech: No Abnormal speech present <Raj Tapia NP - Last Filed: 04/08/20 16:15> Gait exam (Neuro): Normal gait present <Raj Tapia NP - Last Filed: 04/08/20 16:15> Motor exam (neuro): 5/5 motor strength present throughout <Raj Tapia EN[employer] LEVEL ELECTRICAL ENGINEER - Last Filed: 04/08/20 16:15> Extrem: General: Yes normal to inspection <Raj Tapia NP - Last Filed: 04/08/20 16:15> Course Course Course Narrative: 54-year-old male with past medical history of alcoholic liver cirrhosis here with abdominal distension x1 week. No pain. No fevers or chills. Will check labs including INR. Patient will need therapeutic paracentesis. 1500- albumin was low and this was replaced. Patient returns from IR after 8.5 L removed with paracentesis. Plan for close observation in the emergency department for a brief time the discharge home. Patient is feeling improved. 1600- Patient monitored in the emergency department with no change. Plan for discharge home. Recommend follow-up with GI outpatient. Reviewed worrisome signs and symptoms and when to return to the emergency department. Comfortable with discharge home. <Raj Tapia NP - Last Filed: 04/08/20 16:15> I have reviewed the chart <Terry Gonsalez MD - Last Filed: 04/26/20 20:29> Medical Decision Making MDM Narrative Medical decision making narrative: less likely SBP with no leukocytosis or fever and no abdominal pain on exam <Raj Tapia NP - Last Filed: 04/08/20 16:15> Medical Records Medical records reviewed: Yes I reviewed the patient's medical records. <Raj Tapia NP - Last Filed: 04/08/20 16:15> Lab Data Lab results reviewed: Yes I reviewed the patient's lab results. <Raj Tapia NP - Last Filed: 04/08/20 16:15> Result diagrams: : 04/08/20 11:31 04/08/20 11:31 <Raj Tapia NP - Last Filed: 04/08/20 16:15> Labs: Lab Results 04/08/20 04/08/20 04/08/20 Range/Units 11:31 11:31 11:31 WBC 3.5 L (4.8-10.8) X10*3/uL RBC 3.01 L (4.60-5.80) X10*6/uL Hgb 9.2 L (14.0-18.0) g/dl Hct 28.9 L (42-52) % MCV 96.0 (80-98) fL MCH 30.6 (27.0-33.0) pg MCHC 31.8 (31.0-36.0) g/dl RDW 17.8 H (11.0-16.0) % Plt Count 60 L (160-400) X10*3/uL MPV 10.8 (9.4-12.4) fL Immature Gran % (Auto) 0.6 H (0.0-0.4) % Neut % (Auto) 61.7 (45-73) % Lymph % (Auto) 22.4 (20-40) % [place] % (Auto) 10.5 (2-11) % Eos % (Auto) 3.7 (0-4) % Baso % (Auto) 1.1 (0-2) % Lymph # (Auto) 0.8 L (1.2-4.9) X10*3/uL [place] # (Auto) 0.4 (0.1-1.2) X10*3/uL Eos # (Auto) 0.1 (0.0-0.4) X10*3/uL Baso # (Auto) 0.0 (0.0-0.2) X10*3/uL Abs Immat Gran (auto) 0.02 (0.00-0.03) X10*3/uL Absolute Neuts (auto) 2.2 (2.0-8.3) X10*3/uL Absolute Nucleated RBC 0.000 (0.0-0.012) X10*3/uL Nucleated RBC % (auto) 0.0 (0.0-0.2) /100WBC PT 23.7 H (10.8-13.0) SEC INR 2.0 H (0.9-1.1) Sodium 133 L (135-145) mmol/L Potassium 4.0 (3.3-5.1) mmol/l Chloride 105 (96-108) mmol/L Carbon Dioxide 24 (22-29) mmol/L Anion Gap 8 L (12-20) BUN 10 (9-16) mg/dL Creatinine 0.80 (0.5-1.4) mg/dL Estim Creat Clear Calc 128.1 Estimated GFR > 60 Random Glucose 127 H (60-115) mg/dL Calcium 8.1 L (8.4-10.2) mg/dL Total Bilirubin 3.0 H (0.0-1.0) mg/dL Direct Bilirubin 1.3 H (0.0-0.5) mg/dL AST 43 H (5-37) U/L ALT 23 (0-40) U/L Alkaline Phosphatase 147 H (39-117) U/L Total Protein 8.1 H (6.5-8.0) g/dL Albumin 2.1 L (3.5-5.0) g/dL <Raj Tapia, ENTRY LEVEL ELECTRICAL ENGINEER - Last Filed: 04/08/20 16:15> Lab Results 04/08/20 04/08/20 04/08/20 Range/Units 11:31 11:31 11:31 WBC 3.5 L (4.8-10.8) X10*3/uL RBC 3.01 L (4.60-5.80) X10*6/uL Hgb 9.2 L (14.0-18.0) g/dl Hct 28.9 L (42-52) % MCV 96.0 (80-98) fL MCH 30.6 (27.0-33.0) pg MCHC 31.8 (31.0-36.0) g/dl RDW 17.8 H (11.0-16.0) % Plt Count 60 L (160-400) X10*3/uL MPV 10.8 (9.4-12.4) fL Immature Gran % (Auto) 0.6 H (0.0-0.4) % Neut % (Auto) 61.7 (45-73) % Lymph % (Auto) 22.4 (20-40) % [place] % (Auto) 10.5 (2-11) % Eos % (Auto) 3.7 (0-4) % Baso % (Auto) 1.1 (0-2) % Lymph # (Auto) 0.8 L (1.2-4.9) X10*3/uL [place] # (Auto) 0.4 (0.1-1.2) X10*3/uL Eos # (Auto) 0.1 (0.0-0.4) X10*3/uL Baso # (Auto) 0.0 (0.0-0.2) X10*3/uL Abs Immat Gran (auto) 0.02 (0.00-0.03) X10*3/uL Absolute Neuts (auto) 2.2 (2.0-8.3) X10*3/uL Absolute Nucleated RBC 0.000 (0.0-0.012) X10*3/uL Nucleated RBC % (auto) 0.0 (0.0-0.2) /100WBC PT 23.7 H (10.8-13.0) SEC INR 2.0 H (0.9-1.1) Sodium 133 L (135-145) mmol/L Potassium 4.0 (3.3-5.1) mmol/l Chloride 105 (96-108) mmol/L Carbon Dioxide 24 (22-29) mmol/L Anion Gap 8 L (12-20) BUN 10 (9-16) mg/dL Creatinine 0.80 (0.5-1.4) mg/dL Estim Creat Clear Calc 128.1 Estimated GFR > 60 Random Glucose 127 H (60-115) mg/dL Calcium 8.1 L (8.4-10.2) mg/dL Total Bilirubin 3.0 H (0.0-1.0) mg/dL Direct Bilirubin 1.3 H (0.0-0.5) mg/dL AST 43 H (5-37) U/L ALT 23 (0-40) U/L Alkaline Phosphatase 147 H (39-117) U/L Total Protein 8.1 H (6.5-8.0) g/dL Albumin 2.1 L (3.5-5.0) g/dL <Terry Gonsalez MD - Last Filed: 04/26/20 20:29> Imaging Data Paracentesis abdomen: Attestation: I personally reviewed and interpreted this imaging study as follows: <Raj Tapia NP - Last Filed: 04/08/20 16:15> Radiologist's impression: [place] [id number] Ultrasound Report Signed Patient: Artemio Monaco#: [id number] : 1965Acct:[id number] Age/Sex: 54 / MADM Date: 04/08/20 Loc: HO.ED Attending Dr: Ordering Physician: RAJ TAPIA NP Date of Service: 04/08/20 Procedure(s): US paracentesis abd w/image Accession Number(s): [id number] cc: RAJ TAPIA NP~ EXAMINATION: ULTRASOUND-GUIDED PARACENTESIS CLINICAL INFORMATION: Cirrhosis with ascites COMPARISON: February 21, 2020 TECHNIQUE: Ultrasound-guided thoracentesis FINDINGS: Ultrasound demonstrates large amount of ascites within the right upper quadrant. Using sterile technique and ultrasound guidance a 5 [place] Yueh needle was directed into the fluid collection and a total of 8.5 L of clear yellow fluid removed. Patient tolerated procedure without difficulty. US/US paracentesis abd w/image IMPRESSION: Paracentesis with removal of 8.5 L of clear yellow fluid. <Raj Tapia NP - Last Filed: 04/08/20 16:15> Discharge Plan Discharge Clinical Impression: Abdominal ascites <Raj Tapia NP - Last Filed: 04/08/20 16:15> Patient Disposition: Home, Self-Care <Raj Tapia NP - Last Filed: 04/08/20 16:15> Instructions: Ascites (ED) <Raj Tapia NP - Last Filed: 04/08/20 16:15> Additional Instructions: follow-up with the line out man Return for fever, abdominal pain, vomiting continue all your medications as prescribed <Raj Tapia NP - Last Filed: 04/08/20 16:15> Referrals: Miroslava Murphy MD [Primary Care Provider] - 2 days <Raj Tapia NP - Last Filed: 04/08/20 16:15> Interventions: ED Discharge Assessment Last Done: 04/08/20 16:12 <Raj Tapia NP - Last Filed: 04/08/20 16:15> Discharge Date/Time: 04/08/20 16:13 <Raj Tapia NP - Last Filed: 04/08/20 16:15>
[2020-04-08 11:37] VITALS: BP 120/76; PULSE 93; RESP 16; TEMP 36.9; O2SAT 99
[2020-04-08 11:48] LABS: Basophils Percent Auto 1.1 % (0-2); Eosinophils Absolute Auto 0.1 X10*3/uL (0.0-0.4); Eosinophils Percent Auto 3.7 % (0-4); Hematocrit 28.9 % (42-52); Hemoglobin 9.2 g/dl (14.0-18.0); Imm Gran Abs Auto 0.02 X10*3/uL (0.00-0.03); Imm Gran Pct Auto 0.6 % (0.0-0.4); Lymphocytes Absolute Auto 0.8 X10*3/uL (1.2-4.9); Lymphocytes Percent Auto 22.4 % (20-40); MANUAL DIFF FLAG NO; Mean Corpuscular HGB Conc 31.8 g/dl (31.0-36.0); Mean Corpuscular Hemoglobin 30.6 pg (27.0-33.0); Mean Platelet Volume 10.8 fL (9.4-12.4); Monocytes Absolute Auto 0.4 X10*3/uL (0.1-1.2); Monocytes Percent Auto 10.5 % (2-11); Neutrophils Absolute Auto 2.2 X10*3/uL (2.0-8.3); Neutrophils Percent Auto 61.7 % (45-73); Red Blood Count 3.01 X10*6/uL (4.60-5.80); Red Cell Distribution Width 17.8 % (11.0-16.0); White Blood Count 3.5 X10*3/uL (4.8-10.8)
[2020-04-08 11:49] LABS: Platelet Count 60 X10*3/uL (160-400)
[2020-04-08 11:56] LABS: Prothrombin Time 23.7 SEC (10.8-13.0)
[2020-04-08 12:15] LABS: Alanine Aminotransferase 23 U/L (0-40); Albumin Level 2.1 g/dL (3.5-5.0); Alkaline Phosphatase 147 U/L (39-117); Aspartate Amino Transferase 43 U/L (5-37); Bilirubin Direct 1.3 mg/dL (0.0-0.5); Blood Urea Nitrogen 10 mg/dL (9-16); Creatinine Clr Calc Pharmacy 128.1; Estimated Glomerular Filt Rate > 60; Glucose Random 127 mg/dL (60-115); Total Protein 8.1 g/dL (6.5-8.0)
[2020-04-08 12:26] LABS: Anion Gap 8 (12-20); Calcium 8.1 mg/dL (8.4-10.2); Carbon Dioxide 24 mmol/L (22-29); Chloride 105 mmol/L (96-108); Sodium 133 mmol/L (135-145)
[2020-04-08] MEDS: Albumin Human 25 % 50 ML 100 ML IV (13:14)
--- NOTE | 2020-04-08 13:15 | PC.NURSE ---
pt to radiology for paracentesis
--- NOTE | 2020-04-08 13:15 | PC.NURSE ---
ALBUMIN ADMINISTERED BY AREA ATTENDANT FRANCISCO
[2020-04-08 14:53] VITALS: BP 118/65; PULSE 94; RESP 16; O2SAT 100
--- NOTE | 2020-04-08 14:53 | PC.NURSE ---
pt returned from paracentesis. 8.5L drained. no issues throughout procedure. BP WNL.
[2020-04-08] MEDS: Lidocaine HCl 1 % 20 ML VIAL 5 ML SUBCUT (16:12)
== END 2020-04-08 16:13 | disposition home or self-care (01) ==
PROVIDERS: Nurse Practitioner Family; Emergency Provider Emergency Medicine; PCP Student in an Organized Health Care Education/Training Program
DX: K70.31 Alcoholic cirrhosis of liver with ascites (principal); Z79.899 Other long term (current) drug therapy
CPT/HCPCS: 36415; 49083; 80048; 80076; 85025; 85610; 96365; 99284; P9047

== ENCOUNTER 2020-04-29 07:53 | Emergency (ER) | payer MEDICAID, SELFPAY ==
[2020-04-29] VITALS (7 sets, daily range): BP systolic 102–169; BP diastolic 59–75; PULSE 88–98; RESP 17–22; TEMP 36.2–36.9; O2SAT 99–100; BMI 44.0
--- NOTE | 2020-04-29 08:08 | ED_ITS ---
HPI - SOB/Dyspnea General Chief Complaint: Dyspnea Stated Complaint: abd pain Time Seen by Provider: 04/29/20 08:07 Source: patient Mode of arrival: ambulatory Limitations: no limitations History of Present Illness HPI Narrative: 54 yo male with cirrhosis here with increased ascites ccausing shortness of breath last paracentesis per him 3 to 4 weeks, no cough or fevers, compliant with medications, no AC therapy MD elicited complaint: shortness of breath Pertinent past history: other (cirrhosis) Onset (ago): week(s) (2) Context: other (here requesting paracentesis) Timing: constant Severity: similar to previous episodes Exacerbating factors: lying flat and exertion Relieving factors: nothing Known history of: other (cirrhosis) Associated symptoms: denies other symptoms Treatment prior to arrival: none Related Data Allergies Allergy/AdvReac Type Severity Reaction Status Date / Time seafood Allergy Unknown Verified 02/21/20 13:41 Review of Systems Review of Systems: Constitutional : No Fever, No Chills ENT/Mouth : No sore throat, No Rhinorrhea, No Swallowing Difficulty Eyes: No Eye Pain, No Swelling, No Redness Cardiovascular : No Chest Pain, positive SOB, No Orthopnea, positive Edema Respiratory : No Cough, No Sputum, No Wheezing, positive dyspnea Gastrointestinal : No Nausea, No Vomiting, No Diarrhea, No abdominal Pain, No Hematochezia, No Melena Genitourinary : No Dysuria, No Urinary Frequency, No Hematuria Musculoskeletal : No joint pain, No Myalgias Skin : No Skin Lesions, No rash Neuro : No Weakness, No Numbness, No Dizziness, No Headache Psych : No Anxiety/Panic, No Depression Heme/Lymph: No Bruising, No Lymphadenopathy Endocrine : No Polyuria, No Polydipsia All other systems reviewed and are negative [facility] Past Medical History Attestation statement: The following information was validated with the patient. Medical History CHF (congestive heart failure) Hepatic cirrhosis Social History Social History Alcohol intake: never Smoked in Last 30 Days: No Use of substances other than those prescribed or required for medical reasons: No Advance Directives: No Advance Directives Information Provided: Yes Physical Exam Vital Signs: Vital Signs: Last Vital Signs Temp 98.0 F 04/29/20 14:33 Pulse 88 04/29/20 14:33 Resp 18 04/29/20 14:33 BP 116/67 04/29/20 14:33 Pulse Ox 100 04/29/20 14:33 Body Mass Index 44.0 Appearance: Alert. Oriented X3. No acute distress. Eyes: Pupils equal, round and reactive to light. ENT: Pharynx normal. Neck: Normal inspection. Neck supple. CVS: Normal heart rate and rhythm. Pulses normal. Respiratory: No respiratory distress. Breath sounds normal. Abdomen: Soft and nontender. Large amount of ascites noted, nontender Skin: Skin warm and dry. Normal skin color. Normal skin turgor. Extremities: pos 2 to 3+ pitting lower extremity edema. No calf ttp Neuro: Oriented X 3. No motor deficit. No sensory deficit. Course Course Course Narrative: patient went to IR signed out to Dr. Carroll pending IR findings and workup Procedures Paracentesis Time Out Performed: Yes Indication: Ascites Procedure: therapeutic paracentesis Location: RLQ Local Anesthetic: lidocaine 2% Amount of anesthesia used (mL): 5 Bedside Ultrasound Used: yes, Ascites confirmed and location marked Preparation: sterile prep and drape Amount of fluid obtained (mL): 1 Fluid: cloudy Post Procedure Exam: awake, alert Patient Tolerated Procedure: other (despite fluid being in needle unable to express any significant amount of fluid, catheter was hubbed in order to reach ascitic fluid) Complications: other (sent to IR for US guided procedure) MDM - SOB/Dyspnea MDM Narrative Medical decision making narrative: 54 yo male with with hx of cirrhosis and CHF here with ascites causing dyspnea , has had 4 paracentesis in the past last one was bout 3 weeks ago, here in ED requesting another, no AC therapy, will obtain basic labs, CXR, perform procedure Lab Data Result diagrams: 04/29/20 08:25 04/29/20 08:25 Labs: Lab Results 04/29/20 04/29/20 04/29/20 Range/Units 08:25 08:25 08:25 WBC 3.2 L (4.8-10.8) X10*3/uL RBC 2.85 L (4.60-5.80) X10*6/uL Hgb 8.7 L (14.0-18.0) g/dl Hct 27.8 L (42-52) % MCV 97.5 (80-98) fL MCH 30.5 (27.0-33.0) pg MCHC 31.3 (31.0-36.0) g/dl RDW 17.3 H (11.0-16.0) % Plt Count 57 L (160-400) X10*3/uL MPV 10.7 (9.4-12.4) fL Immature Gran % (Auto) 0.6 H (0.0-0.4) % Neut % (Auto) 57.6 (45-73) % Lymph % (Auto) 27.9 (20-40) % [place] % (Auto) 9.0 (2-11) % Eos % (Auto) 4.0 (0-4) % Baso % (Auto) 0.9 (0-2) % Lymph # (Auto) 0.9 L (1.2-4.9) X10*3/uL [place] # (Auto) 0.3 (0.1-1.2) X10*3/uL Eos # (Auto) 0.1 (0.0-0.4) X10*3/uL Baso # (Auto) 0.0 (0.0-0.2) X10*3/uL Abs Immat Gran (auto) 0.02 (0.00-0.03) X10*3/uL Absolute Neuts (auto) 1.9 L (2.0-8.3) X10*3/uL Absolute Nucleated RBC 0.000 (0.0-0.012) X10*3/uL Nucleated RBC % (auto) 0.0 (0.0-0.2) /100WBC PT 22.1 H (10.8-13.0) SEC INR 1.9 H (0.9-1.1) APTT 41.1 H (24.1-38.0) SEC Sodium 132 L (135-145) mmol/L Potassium 4.1 (3.3-5.1) mmol/l Chloride 103 (96-108) mmol/L Carbon Dioxide 24 (22-29) mmol/L Anion Gap 9 L (12-20) BUN 11 (9-16) mg/dL Creatinine 0.82 (0.5-1.4) mg/dL Estim Creat Clear Calc 124.9 Estimated GFR > 60 Random Glucose 142 H (60-115) mg/dL Calcium 7.7 L (8.4-10.2) mg/dL Total Bilirubin 2.0 H (0.0-1.0) mg/dL Direct Bilirubin 1.0 H (0.0-0.5) mg/dL AST 48 H (5-37) U/L ALT 21 (0-40) U/L Alkaline Phosphatase 155 H (39-117) U/L Total Protein 7.1 (6.5-8.0) g/dL Albumin 1.9 L (3.5-5.0) g/dL Lipase 24 (8-78) U/L Discharge Plan Discharge Clinical Impression: Ascites Qualifiers: Ascites type: other type Qualified Code(s): R18.8 - Other ascites Patient Disposition: Home, Self-Care Instructions: Ascites (ED), Paracentesis (DC) Additional Instructions: return to ED for any worsening symptoms or concerns Referrals: Miroslava Murphy MD [Primary Care Provider] - 2 days (as needed)
--- NOTE | 2020-04-29 08:13 | XR_ITS ---
EXAMINATION: XR CHEST CLINICAL INFORMATION: Dyspnea COMPARISON: Previous chest x-ray 02/21/2020 TECHNIQUE: Frontal view of the chest was obtained. FINDINGS: The cardiac and mediastinal contours are stable. There is a density over the lower spine probably representing an esophageal hernia that is stable. The lungs are clear. There is no pleural effusion or pneumothorax. Bony structures are unremarkable. XR/XR chest 1V IMPRESSION: No evidence for acute disease in the chest. Probable esophageal hernia.
--- NOTE | 2020-04-29 08:14 | PC.NURSE ---
SEEN BY DR MARTINEZ AT THIS TIME
--- NOTE | 2020-04-29 08:27 | PC.NURSE ---
SEEN BY DR MARTINEZ. IV EST 2O G L AC. BLOOD DRAWN AND SENT TO LAB.
[2020-04-29 08:31] LABS: Basophils Percent Auto 0.9 % (0-2); Eosinophils Absolute Auto 0.1 X10*3/uL (0.0-0.4); Hematocrit 27.8 % (42-52); Hemoglobin 8.7 g/dl (14.0-18.0); Imm Gran Abs Auto 0.02 X10*3/uL (0.00-0.03); Imm Gran Pct Auto 0.6 % (0.0-0.4); Lymphocytes Absolute Auto 0.9 X10*3/uL (1.2-4.9); Lymphocytes Percent Auto 27.9 % (20-40); Mean Corpuscular HGB Conc 31.3 g/dl (31.0-36.0); Mean Corpuscular Hemoglobin 30.5 pg (27.0-33.0); Mean Corpuscular Volume 97.5 fL (80-98); Mean Platelet Volume 10.7 fL (9.4-12.4); Monocytes Absolute Auto 0.3 X10*3/uL (0.1-1.2); Neutrophils Absolute Auto 1.9 X10*3/uL (2.0-8.3); Neutrophils Percent Auto 57.6 % (45-73); Red Blood Count 2.85 X10*6/uL (4.60-5.80); Red Cell Distribution Width 17.3 % (11.0-16.0); White Blood Count 3.2 X10*3/uL (4.8-10.8)
[2020-04-29 08:34] LABS: MANUAL DIFF FLAG NO
[2020-04-29 08:36] LABS: Platelet Count 57 X10*3/uL (160-400)
[2020-04-29 08:39] LABS: INTERNATIONAL NORM RATIO 1.9 (0.9-1.1); Prothrombin Time 22.1 SEC (10.8-13.0)
[2020-04-29 08:42] LABS: Partial Thromboplastin Time 41.1 SEC (24.1-38.0)
[2020-04-29 09:02] LABS: Alanine Aminotransferase 21 U/L (0-40); Albumin Level 1.9 g/dL (3.5-5.0); Alkaline Phosphatase 155 U/L (39-117); Aspartate Amino Transferase 48 U/L (5-37); Blood Urea Nitrogen 11 mg/dL (9-16); Calcium 7.7 mg/dL (8.4-10.2); Creatinine Clr Calc Pharmacy 124.9; Estimated Glomerular Filt Rate > 60; Glucose Random 142 mg/dL (60-115); Lipase 24 U/L (8-78); Total Protein 7.1 g/dL (6.5-8.0)
[2020-04-29 09:14] LABS: Anion Gap 9 (12-20); Carbon Dioxide 24 mmol/L (22-29); Chloride 103 mmol/L (96-108); Potassium 4.1 mmol/l (3.3-5.1); Sodium 132 mmol/L (135-145)
--- NOTE | 2020-04-29 09:26 | PC.NURSE ---
ALBUMIN UP PER ORDERS. DR MARTINEZ AT BEDSIDE FOP PARACENTISIS. PCT AT BEDSIDE WELL. CONSENT SIGNED BY PATIENT.
--- NOTE | 2020-04-29 09:37 | US_ITS ---
EXAMINATION: ULTRASOUND-GUIDED PARACENTESIS. CLINICAL INFORMATION: Cirrhosis and ascites. COMPARISON: Ultrasound paracentesis 04/08/2020 TECHNIQUE: Following explaining ultrasound-guided paracentesis procedure, benefits and risk, a written consent was obtained. Patient was placed supine on fluoroscopy table and kidney ultrasound imaging was obtained. An optimal site was selected along the right upper quadrant laterally and marked. The marked site was cleaned and draped in usual sterile manner. 1% lidocaine was injected at puncture site. A 4 [employer] catheter was then advanced from the skin into the abdominal cavity. After observing fluid return, stylet was withdrawn and catheter connected to vacuum bottles via connecting cannula. After obtaining all fluid and no more fluid return seen, catheter was withdrawn with complete hemostasis achieved at puncture site. Patient tolerated procedure extremely well. Sterile band aid applied post procedure. FINDINGS: There is moderate to large ascites visualized. Approximately 10.4 L of clear yellowish fluid was drained without immediate complications. Obtained fluid was sent to lab as per referring physician's orders. US/US paracentesis abd w/image IMPRESSION: Successful ultrasound-guided paracentesis performed with approximately 10.4 L of clear yellowish fluid removed.
--- NOTE | 2020-04-29 09:41 | PC.NURSE ---
DR MARTINEZ UNABLE TO TAP PATIENT - NEEDLE NO LONG ENOUGH. PT WILL GO TO IR.
[2020-04-29] MEDS: Albumin Human 25 % 100 ML IV ×2 (10:22→16:37)
[2020-04-29] MEDS: Lidocaine HCl 2 % MPF 5 ML VIAL SUBCUT (10:22)
--- NOTE | 2020-04-29 11:08 | PC.NURSE ---
patient a&ox3, no c/o pain or discomfort, classroom monitor nsr 90s, vss, pt awaiting IR, will continue to monitor.
--- NOTE | 2020-04-29 13:20 | PC.NURSE ---
patient was wondering what the holdup for IR was, patient was updated that they will take hiim when they have open availability, pt stated that if they cant do something soon he just wants to go home.
--- NOTE | 2020-04-29 14:34 | PC.NURSE ---
patient a&ox3, no current c/o pain/discomfort, no sob noted, vss, drying rack changer nsr 80s, will continue to monitor.
--- NOTE | 2020-04-29 15:05 | PC.NURSE ---
patient being transported to [facility]
--- NOTE | 2020-04-29 16:20 | PC.NURSE ---
pt returning from IR, nurse states they drained 10.4L, provider notified, pts vss, will continue to monitor.
--- NOTE | 2020-04-29 16:39 | PC.NURSE ---
pt medicated per order, pt currently talking with on the phone
[2020-04-29 16:44] LABS: MN% 92.2 %; PMN% 7.8 %; WBC Peritoneal Fluid 0.168 X10*3/uL
[2020-04-29 17:45] LABS: RBC Peritoneal Fluid < 0.002 X10*6/uL
[2020-04-29 17:46] LABS: Basophils Peritoneal Fl 0 %; Eosinophils Peritoneal Fl 0 %; Lymphocyte Peritoneal Fl 53 %; Monocytes Peritoneal Fl 32 %; Neutrophils Peritoneal Fluid 5 %
[2020-04-29 17:47] LABS: BF Shift QC OK YES; Man Diluent Bkgrd OK YES; Other Peritioneal Fl 10 %
--- NOTE | 2020-04-29 18:19 | PC.NURSE ---
called [facility] to get grahm stain results per provider request, they stated that they will notify the microbiologist that the provider would like them now vs waiting, will notify provider.
[2020-04-30 07:20] LABS: Albumin Peritoneal Fluid 0.5; LDH Peritoneal Fluid 46; Total Protein Peritoneal Fluid 1.8
[2020-05-01 12:55] LABS: Glucose Peritoneal Fluid 97
== END 2020-04-29 19:02 | disposition home or self-care (01) ==
PROVIDERS: Emergency Provider Emergency Medicine; PCP Student in an Organized Health Care Education/Training Program
DX: R18.8 Other ascites (principal); K74.60 Unspecified cirrhosis of liver
CPT/HCPCS: 36415; 49083; 71045; 80048; 80076; 82042; 82945; 83615; 83690; 84157; 85025; 85610; 85730; 87071; 87205; 89051; 96365; 96366; 99284; P9047

== ENCOUNTER 2020-05-21 07:30 | Emergency (ER) | payer MEDICAID, SELFPAY ==
[2020-05-21 07:47] VITALS: BP 135/76; PULSE 103; RESP 18; TEMP 36.7; O2SAT 99; BMI 46.3
--- NOTE | 2020-05-21 08:25 | ED.GENADULT ---
HPI - General Adult General Chief complaint: Abdominal Pain Stated complaint: paracentesis Time Seen by Provider: 05/21/20 07:58 Source: patient Mode of arrival: ambulatory Limitations: no limitations History of Present Illness HPI narrative: 55-year-old male who presents emergency department for evaluation at abdominal distension and shortness of breath. The patient has a history of cirrhosis and has had at least 4 paracenteses in the past. The patient does take hydroxyzine, furosemide and spironolactone. He does not know the doses of these medications. He states he has had a high ammonia level in the past and had to take lactulose in the past as well. The patient states that since his last paracentesis since which was done here on 04/29/2020 he has had gradual reaccumulation of his abdominal fluid. He states that his abdomen is now very distended any has a pressure-like pain. He states that he also feels short of breath. He has noted significant swelling of his lower extremities as well. He denied fever, chills, chest pain, nausea. He states the stop drinking alcohol in September of 2019 but did drink alcohol prior to that. He states that he has an appointment in June 2020 with a liver specialist to discuss getting on a transplant list. Related Data Allergies Allergy/AdvReac Type Severity Reaction Status Date / Time seafood Allergy Unknown Verified 02/21/20 13:41 Review of Systems Review of Systems: Yes all other systems are reviewed and are negative Neurologic: Reports Abnormal speech present [facility] Past Medical History Source: unable to obtain Medical History CHF (congestive heart failure) Hepatic cirrhosis Social History Social History Alcohol intake: never Smoking Status: Never smoker Use of substances other than those prescribed or required for medical reasons: No Advance Directives: No Advance Directives Information Provided: No Physical Exam Vital Signs: Vital Signs: Last Vital Signs Temp 98.2 F 05/21/20 11:09 Pulse 100 05/21/20 11:09 Resp 16 05/21/20 11:09 BP 93/68 05/21/20 11:09 Pulse Ox 100 05/21/20 11:09 Body Mass Index 46.3 Const: General: cooperative and healthy appearing Nutritional Appearance: obese Orientation/consciousness: oriented to person and oriented to place Limitations: no limitations HENMT: Head: Yes normal to inspection, Yes normocephalic and Yes atraumatic Ears: external ears normal General nose exam: Normal external nose present Face and sinus: Yes normal facial exam Mouth: Normal oral and palatal mucosa present Throat: Yes posterior oropharynx normal Eyes: Periorbital: periorbital findings normal Eyelids: Yes eyelids normal Conjunctivae: conjunctivae normal Sclerae: sclerae normal Corneas: corneas normal Pupils: Equal, round and reactive pupils present Direct Ophthalmoscopy: normal light reflex Neck: Neck: Yes full ROM, Yes no lymphadenopathy, Yes no meningeal signs, Yes trachea midline and Yes supple Chest: Chest palpation & inspection: normal inspection of the chest and normal palpation of entire chest wall Resp: Effort & Inspection: normal respiratory effort and able to speak in complete sentences Auscultation: clear to auscultation bilaterally Cardio: Rate: regular rate Rhythm: regular rhythm Heart sounds: S1 normal heart sound present, S2 normal heart sound present and Murmur heart sound present (Holosystolic murmur, diffuse anterior chest, increased left lower sternal b) GI: Inspection: Yes normal to inspection Palpation (GI): Soft to palpation, nontender, no guarding, not rigid and Other GI palpation findings present (Severe distention secondary to ascites) : General: Yes no CVA tenderness Back/Spine/Pelvis: Back: no CVA tenderness Cervical Spine: normal cervical lordosis Thoracic/Lumbar Spine: thoracic and lumbar spine normal to inspection Skin: Lesions: no lesions Rashes: no rashes Wounds: no wounds Neuro: General: oriented to person, oriented to place and no meningeal signs Cranial nerves: Yes Equal, round and reactive pupils present Cognition (Neuro): normal cognition Speech: Abnormal speech present Motor exam (neuro): 5/5 motor strength present throughout Extrem: General: Yes normal to inspection, Yes full ROM and Yes other (Bilateral 2+ pitting edema) Psych: Appearance: well kempt Mental Status: mental status grossly normal Speech and movement: Normal speech and movement present Affect: normal affect Attitude: cooperative Thought process: Normal thought process present Thought content: Normal thought content present Course Course Course Narrative: 55-year-old male with cirrhosis who presents emergency department for abdominal distension and shortness of breath. Examination did reveal tense ascites of his abdomen with 2+ pitting edema bilaterally symmetric. I did order laboratory evaluation on this patient. I will discuss large volume paracentesis with the interventional radiologist. 0858: The interventional radiologist will do a therapeutic and diagnostic paracentesis on this patient. 1208: The patient had a 0.5 L of ascites removed by the interventional radiologist. The patient also received albumin during the procedure. The patient states that he has walked since the procedure does not feel lightheaded or dizzy. The patient will be discharged home. Advised to continue taking his medications and to keep his follow-up appointment with his collections clerk. Medical Decision Making Lab Data Result diagrams: 05/21/20 08:30 05/21/20 08:30 Labs: Lab Results 05/21/20 05/21/20 05/21/20 Range/Units 08:30 08:30 08:30 WBC 3.7 L (4.8-10.8) X10*3/uL RBC 2.79 L (4.60-5.80) X10*6/uL Hgb 8.6 L (14.0-18.0) g/dl Hct 27.0 L (42-52) % MCV 96.8 (80-98) fL MCH 30.8 (27.0-33.0) pg MCHC 31.9 (31.0-36.0) g/dl RDW 17.2 H (11.0-16.0) % Plt Count 58 L (160-400) X10*3/uL MPV 10.2 (9.4-12.4) fL Immature Gran % (Auto) 0.5 H (0.0-0.4) % Neut % (Auto) 62.5 (45-73) % Lymph % (Auto) 21.5 (20-40) % [place] % (Auto) 11.0 (2-11) % Eos % (Auto) 4.0 (0-4) % Baso % (Auto) 0.5 (0-2) % Lymph # (Auto) 0.8 L (1.2-4.9) X10*3/uL [place] # (Auto) 0.4 (0.1-1.2) X10*3/uL Eos # (Auto) 0.2 (0.0-0.4) X10*3/uL Baso # (Auto) 0.0 (0.0-0.2) X10*3/uL Abs Immat Gran (auto) 0.02 (0.00-0.03) X10*3/uL Absolute Neuts (auto) 2.3 (2.0-8.3) X10*3/uL Absolute Nucleated RBC 0.000 (0.0-0.012) X10*3/uL Nucleated RBC % (auto) 0.0 (0.0-0.2) /100WBC PT 23.4 H (10.8-13.0) SEC INR 2.0 H (0.9-1.1) APTT 40.2 H (24.1-38.0) SEC Sodium 135 (135-145) mmol/L Potassium 4.2 (3.3-5.1) mmol/l Chloride 105 (96-108) mmol/L Carbon Dioxide 26 (22-29) mmol/L Anion Gap 8 L (12-20) BUN 12 (9-16) mg/dL Creatinine 0.82 (0.5-1.4) mg/dL Estim Creat Clear Calc 127.0 Estimated GFR > 60 Random Glucose 99 (60-115) mg/dL Calcium 7.9 L (8.4-10.2) mg/dL Total Bilirubin 2.6 H (0.0-1.0) mg/dL AST 44 H (5-37) U/L ALT 23 (0-40) U/L Alkaline Phosphatase 154 H (39-117) U/L Total Protein 6.9 (6.5-8.0) g/dL Albumin 2.0 L (3.5-5.0) g/dL Lipase 25 (8-78) U/L Peritoneal WBC X10*3/uL Peritoneal RBC X10*6/uL 05/21/20 Range/Units Unknown WBC (4.8-10.8) X10*3/uL RBC (4.60-5.80) X10*6/uL Hgb (14.0-18.0) g/dl Hct (42-52) % MCV (80-98) fL MCH (27.0-33.0) pg MCHC (31.0-36.0) g/dl RDW (11.0-16.0) % Plt Count (160-400) X10*3/uL MPV (9.4-12.4) fL Immature Gran % (Auto) (0.0-0.4) % Neut % (Auto) (45-73) % Lymph % (Auto) (20-40) % [place] % (Auto) (2-11) % Eos % (Auto) (0-4) % Baso % (Auto) (0-2) % Lymph # (Auto) (1.2-4.9) X10*3/uL [place] # (Auto) (0.1-1.2) X10*3/uL Eos # (Auto) (0.0-0.4) X10*3/uL Baso # (Auto) (0.0-0.2) X10*3/uL Abs Immat Gran (auto) (0.00-0.03) X10*3/uL Absolute Neuts (auto) (2.0-8.3) X10*3/uL Absolute Nucleated RBC (0.0-0.012) X10*3/uL Nucleated RBC % (auto) (0.0-0.2) /100WBC PT (10.8-13.0) SEC INR (0.9-1.1) APTT (24.1-38.0) SEC Sodium (135-145) mmol/L Potassium (3.3-5.1) mmol/l Chloride (96-108) mmol/L Carbon Dioxide (22-29) mmol/L Anion Gap (12-20) BUN (9-16) mg/dL Creatinine (0.5-1.4) mg/dL Estim Creat Clear Calc Estimated GFR Random Glucose (60-115) mg/dL Calcium (8.4-10.2) mg/dL Total Bilirubin (0.0-1.0) mg/dL AST (5-37) U/L ALT (0-40) U/L Alkaline Phosphatase (39-117) U/L Total Protein (6.5-8.0) g/dL Albumin (3.5-5.0) g/dL Lipase (8-78) U/L Peritoneal WBC 0.190 X10*3/uL Peritoneal RBC < 0.002 X10*6/uL Discharge Plan Discharge Clinical Impression: Abdominal ascites Qualifiers: Ascites type: other type Qualified Code(s): R18.8 - Other ascites Cirrhosis Qualifiers: Hepatic cirrhosis type: unspecified hepatic cirrhosis Ascites presence: with ascites Qualified Code(s): K74.60 - Unspecified cirrhosis of liver Patient Disposition: Home, Self-Care Instructions: Cirrhosis (ED), Ascites (ED) Additional Instructions: The interventional radiologist gave you albumin IV and removed 8.5 L of ascites from your abdomen. The ascites fluid does not look infected. Your laboratory evaluation is consistent with your cirrhosis and anemia. Follow-up with your doctor in 2 days. Please return to the emergency department if your symptoms get worse or if you develop any symptoms that are concerning to you.
[2020-05-21 08:33] LABS: MANUAL DIFF FLAG NO
[2020-05-21 08:37] LABS: Basophils Percent Auto 0.5 % (0-2); Eosinophils Absolute Auto 0.2 X10*3/uL (0.0-0.4); Hemoglobin 8.6 g/dl (14.0-18.0); Imm Gran Abs Auto 0.02 X10*3/uL (0.00-0.03); Imm Gran Pct Auto 0.5 % (0.0-0.4); Lymphocytes Absolute Auto 0.8 X10*3/uL (1.2-4.9); Lymphocytes Percent Auto 21.5 % (20-40); Mean Corpuscular HGB Conc 31.9 g/dl (31.0-36.0); Mean Corpuscular Hemoglobin 30.8 pg (27.0-33.0); Mean Corpuscular Volume 96.8 fL (80-98); Mean Platelet Volume 10.2 fL (9.4-12.4); Monocytes Absolute Auto 0.4 X10*3/uL (0.1-1.2); Neutrophils Absolute Auto 2.3 X10*3/uL (2.0-8.3); Neutrophils Percent Auto 62.5 % (45-73); Red Blood Count 2.79 X10*6/uL (4.60-5.80); Red Cell Distribution Width 17.2 % (11.0-16.0); White Blood Count 3.7 X10*3/uL (4.8-10.8)
[2020-05-21 08:39] LABS: Platelet Count 58 X10*3/uL (160-400)
[2020-05-21 08:42] LABS: Prothrombin Time 23.4 SEC (10.8-13.0)
[2020-05-21 08:45] LABS: Partial Thromboplastin Time 40.2 SEC (24.1-38.0)
--- NOTE | 2020-05-21 08:52 | US_ITS ---
EXAMINATION: ULTRASOUND-GUIDED PARACENTESIS CLINICAL INFORMATION: Cirrhosis with massive ascites. COMPARISON: Ultrasound pelvis 04/29/2020 TECHNIQUE: Following explaining ultrasound-guided paracentesis procedure, benefits and risk, a written consent was obtained. Patient was placed supine on ultrasound stretcher and preliminary ultrasound imaging was obtained. An optimal site was selected and marked along the right lateral mid abdomen. The marked site was cleaned and draped usual sterile manner. 1% lidocaine was injected puncture site. Through a small skin incision a 5 [place] [employer] [employer] catheter was advanced into the peritoneal space. After observing fluid return, stylet was withdrawn and catheter connected to vacuum bottle via connecting cannula. In between fluid could not be withdrawn and a second stick was performed slightly anterior to the initial stick. After obtaining all fluid and observing no more fluid return the catheter was withdrawn and complete hemostasis achieved at puncture site. Sterile dressing applied postprocedure. IV 25 g of albumin was administered during exam. FINDINGS: Sterile bandage applied postprocedure. There on previous ultrasound imaging there is large amount of free fluid. There is diffusely thickened anterior abdominal wall approximately 6 mm. Approximately 11.6 L of yellowish fluid was collected. Part of this fluid was sent to lab as requested by referring physician US/US paracentesis abd w/image IMPRESSION: Successful ultrasound-guided therapeutic and diagnostic paracentesis performed without immediate complications.
[2020-05-21 09:08] LABS: Alanine Aminotransferase 23 U/L (0-40); Alkaline Phosphatase 154 U/L (39-117); Anion Gap 8 (12-20); Aspartate Amino Transferase 44 U/L (5-37); Bilirubin Total 2.6 mg/dL (0.0-1.0); Blood Urea Nitrogen 12 mg/dL (9-16); Calcium 7.9 mg/dL (8.4-10.2); Carbon Dioxide 26 mmol/L (22-29); Chloride 105 mmol/L (96-108); Estimated Glomerular Filt Rate > 60; Glucose Random 99 mg/dL (60-115); Lipase 25 U/L (8-78); Potassium 4.2 mmol/l (3.3-5.1); Sodium 135 mmol/L (135-145); Total Protein 6.9 g/dL (6.5-8.0)
--- NOTE | 2020-05-21 09:14 | PC.NURSE ---
pt ambulated to and from bathroom w steady gait.
--- NOTE | 2020-05-21 09:34 | PC.NURSE ---
pt taken to interventional radiology via stretcher
[2020-05-21 11:09] VITALS: BP 93/68; PULSE 100; RESP 16; TEMP 36.8; O2SAT 100
[2020-05-21 11:29] LABS: MN% 85.5 %; PMN% 14.5 %
[2020-05-21 11:30] LABS: RBC Peritoneal Fluid < 0.002 X10*6/uL
[2020-05-21 12:11] LABS: Lymphocyte Peritoneal Fl 47 %; Monocytes Peritoneal Fl 40 %; Neutrophils Peritoneal Fluid 8 %
[2020-05-21 12:12] LABS: BF Shift QC OK YES; Other Peritioneal Fl 5 %
== END 2020-05-21 12:49 | disposition home or self-care (01) ==
PROVIDERS: Emergency Provider Emergency Medicine Emergency Medical Services; PCP Student in an Organized Health Care Education/Training Program
DX: R18.8 Other ascites (principal); K74.60 Unspecified cirrhosis of liver; R10.9 Unspecified abdominal pain; R06.02 Shortness of breath
CPT/HCPCS: 36415; 49083; 80053; 83690; 85025; 85610; 85730; 87070; 87073; 87205; 89051; 99284

== ENCOUNTER 2020-06-17 07:14 | Emergency (ER) | payer MEDICAID, SELFPAY ==
--- NOTE | ~2020-06-17 | US_ITS ---
EXAMINATION: ULTRASOUND-GUIDED PARACENTESIS CLINICAL INFORMATION: Ascites COMPARISON: Previous exams most recent 05/21/2020 TECHNIQUE: Procedure and risks and benefits including bleeding, infection and low blood pressure were discussed with the patient and informed consent was obtained. The right lower quadrant was prepped and draped in the usual sterile fashion. The skin and soft tissues were anesthetized with 1% lidocaine plain. Using ultrasound guidance and a 5 [place] rapid centesis catheter, access to the ascitic fluid was obtained. 11.8 L of clear yellow fluid was removed. Diagnostic specimen was sent as requested by the ordering physician. Patient received albumin 50 g intravenously during the procedure. FINDINGS: There is a large amount of ascites. US/US paracentesis abd w/image IMPRESSION: Ultrasound-guided paracentesis.
[2020-06-17 07:38] VITALS: BP 141/72; PULSE 94; RESP 20; TEMP 36.7; O2SAT 100; BMI 49.4
--- NOTE | 2020-06-17 08:32 | ED_ITS ---
HPI - General Adult General Chief complaint: Dyspnea Stated complaint: FLUID RETENTION LIVER ISSUES Time Seen by Provider: 06/17/20 08:06 Source: patient Mode of arrival: ambulatory Limitations: no limitations History of Present Illness HPI narrative: 55-year-old male with a history of cirrhosis who presents the [facility] department for evaluation of abdominal distension, peripheral edema and shortness of breath. The patient was last seen in the emergency department approximately 1 month prior and had a large volume paracentesis done by Interventional Radiology (approximately 11 L). Patient states that over the past week his abdomen has become very distended the point where he is having difficulty walking any does feel short of breath with significant orthopnea. The patient states that he has been compliant with his medications. He does not use alcohol. He denies fever, chills, chest pain, shortness of breath, abdominal pain, nausea or vomiting. Related Data Allergies Allergy/AdvReac Type Severity Reaction Status Date / Time seafood Allergy Unknown Verified 02/21/20 13:41 Review of Systems Review of Systems: Yes all other systems are reviewed and are negative Neurologic: Reports Abnormal speech present [facility] Past Medical History [facility] Narrative: Patient has history cirrhosis, heart murmur, asthma, he denies tobacco, alcohol and drug use. He states he stopped drinking alcohol in September of 2019. Medical History CHF (congestive heart failure) Hepatic cirrhosis Social History Social History Alcohol intake: never Smoking Status: Never smoker Use of substances other than those prescribed or required for medical reasons: No Advance Directives: No Advance Directives Information Provided: No Physical Exam Vital Signs: Vital Signs: Last Vital Signs Temp 98.0 F 06/17/20 07:38 Pulse 97 06/17/20 11:31 Resp 18 06/17/20 11:31 BP 132/79 06/17/20 11:31 Pulse Ox 98 06/17/20 11:31 Body Mass Index 49.4 Const: General: cooperative and other (Very pleasant and cooperative.) Nutritional Appearance: obese Orientation/consciousness: oriented to person and oriented to place Limitations: no limitations HENMT: Head: Yes normal to inspection, Yes normocephalic and Yes atraumatic Ears: external ears normal General nose exam: Normal external nose present Face and sinus: Yes normal facial exam Mouth: Normal oral and palatal mucosa present Throat: Yes posterior oropharynx normal Eyes: Periorbital: periorbital findings normal Eyelids: Yes eyelids normal Conjunctivae: conjunctivae normal Sclerae: sclerae normal Corneas: corneas normal Pupils: Equal, round and reactive pupils present Direct Ophthalmoscopy: normal light reflex Neck: Neck: Yes full ROM, Yes no lymphadenopathy, Yes no meningeal signs, Yes trachea midline and Yes supple Chest: Chest palpation & inspection: normal inspection of the chest and normal palpation of entire chest wall Resp: Effort & Inspection: normal respiratory effort and able to speak in complete sentences Auscultation: clear to auscultation bilaterally Cardio: Rate: regular rate Rhythm: regular rhythm Heart sounds: S1 normal heart sound present, S2 normal heart sound present and Murmur heart sound present systolic III/ and at the right sternal border GI: Inspection: Yes normal to inspection Palpation (GI): Soft to palpation, Firmness to palpation present (GI) (Tense ascites), nontender, no guarding and not rigid : General: Yes no CVA tenderness Back/Spine/Pelvis: Back: no CVA tenderness Cervical Spine: normal cervical lordosis Thoracic/Lumbar Spine: thoracic and lumbar spine normal to inspection Skin: Lesions: no lesions Rashes: no rashes Wounds: no wounds Neuro: General: oriented to person, oriented to place and no meningeal signs Cranial nerves: Yes Equal, round and reactive pupils present Cognition (Neuro): normal cognition Speech: Abnormal speech present Motor exam (neuro): 5/5 motor strength present throughout Extrem: General: Yes normal to inspection, Yes full ROM and Yes other (2+ pitting edema symmetric) Psych: Appearance: well kempt Mental Status: mental status grossly normal Speech and movement: Normal speech and movement present Affect: normal affect Attitude: cooperative Thought process: Normal thought process present Thought content: Normal thought content present Course Course Course Narrative: 55-year-old male with cirrhosis who presents emergency department for evaluation of tense ascites and shortness of breath. The patient's examination did reveal a marked lucent abdomen and significant peripheral edema of otherwise was unremarkable. I did order laboratory evaluation on this patient. I will contact Interventional Radiology to see if they can do a therapeutic, large volume paracentesis on this patient. 1607: The patient's laboratory evaluation revealed that he was anemic with an H&H of 8.4 and 26.5 [place] [id number] are chronic findings. Patient does have an elevated INR of 2.0 and elevated PTT of 43.1 but this is consistent with his liver disease. The patient did have a large volume paracentesis performed by Interventional Radiology. The patient had at 11.8 L of ascites removed from his abdomen a did receive a 50 g of albumin IV. The patient was kept in the emergency department for several hours after the procedure and is feeling fine therefore be discharged home. He was advised to continue taking these medications as prescribed by his doctor and to follow-up with his doctors for further evaluation and treatment. The patient's ascites fluid revealed 147 WBCs, 17 neutrophils and 62 lymphocytes suggested he does not have spontaneous bacterial peritonitis at this time. Medical Decision Making Lab Data Result diagrams: 06/17/20 08:45 06/17/20 08:45 Labs: Lab Results 06/17/20 06/17/20 06/17/20 Range/Units 08:45 08:45 09:40 WBC 3.9 L (4.8-10.8) X10*3/uL RBC 2.72 L (4.60-5.80) X10*6/uL Hgb 8.4 L (14.0-18.0) g/dl Hct 26.5 L (42-52) % MCV 97.4 (80-98) fL MCH 30.9 (27.0-33.0) pg MCHC 31.7 (31.0-36.0) g/dl RDW 17.3 H (11.0-16.0) % Plt Count 58 L (160-400) X10*3/uL MPV 10.9 (9.4-12.4) fL Immature Gran % (Auto) 0.5 H (0.0-0.4) % Neut % (Auto) 63.5 (45-73) % Lymph % (Auto) 19.5 L (20-40) % [place] % (Auto) 11.3 H (2-11) % Eos % (Auto) 4.4 H (0-4) % Baso % (Auto) 0.8 (0-2) % Lymph # (Auto) 0.8 L (1.2-4.9) X10*3/uL [place] # (Auto) 0.4 (0.1-1.2) X10*3/uL Eos # (Auto) 0.2 (0.0-0.4) X10*3/uL Baso # (Auto) 0.0 (0.0-0.2) X10*3/uL Abs Immat Gran (auto) 0.02 (0.00-0.03) X10*3/uL Absolute Neuts (auto) 2.5 (2.0-8.3) X10*3/uL Absolute Nucleated RBC 0.000 (0.0-0.012) X10*3/uL Nucleated RBC % (auto) 0.0 (0.0-0.2) /100WBC PT 24.0 H (10.8-13.0) SEC INR 2.0 H (0.9-1.1) APTT 43.1 H (24.1-38.0) SEC Sodium 135 (135-145) mmol/L Potassium 4.1 (3.3-5.1) mmol/L Chloride 104 (96-108) mmol/L Carbon Dioxide 26 (22-29) mmol/L Anion Gap 9 L (12-20) BUN 12 (9-16) mg/dL Creatinine 0.78 (0.5-1.4) mg/dL Estim Creat Clear Calc 138.7 Estimated GFR > 60 Random Glucose 91 (60-115) mg/dL Calcium 7.5 L (8.4-10.2) mg/dL Total Bilirubin 3.4 H (0.0-1.0) mg/dL AST 48 H (5-37) U/L ALT 22 (0-40) U/L Alkaline Phosphatase 146 H (39-117) U/L Total Protein 7.1 (6.5-8.0) g/dL Albumin 2.0 L (3.5-5.0) g/dL Lipase 45 (8-78) U/L Peritoneal WBC X10*3/uL Peritoneal RBC X10*6/uL [place] Neutrophils % Periton Lymphocytes % Peritoneal Monocytes % Peritoneal Other Cells % 06/17/20 Range/Units 14:00 WBC (4.8-10.8) X10*3/uL RBC (4.60-5.80) X10*6/uL Hgb (14.0-18.0) g/dl Hct (42-52) % MCV (80-98) fL MCH (27.0-33.0) pg MCHC (31.0-36.0) g/dl RDW (11.0-16.0) % Plt Count (160-400) X10*3/uL MPV (9.4-12.4) fL Immature Gran % (Auto) (0.0-0.4) % Neut % (Auto) (45-73) % Lymph % (Auto) (20-40) % [place] % (Auto) (2-11) % Eos % (Auto) (0-4) % Baso % (Auto) (0-2) % Lymph # (Auto) (1.2-4.9) X10*3/uL [place] # (Auto) (0.1-1.2) X10*3/uL Eos # (Auto) (0.0-0.4) X10*3/uL Baso # (Auto) (0.0-0.2) X10*3/uL Abs Immat Gran (auto) (0.00-0.03) X10*3/uL Absolute Neuts (auto) (2.0-8.3) X10*3/uL Absolute Nucleated RBC (0.0-0.012) X10*3/uL Nucleated RBC % (auto) (0.0-0.2) /100WBC PT (10.8-13.0) SEC INR (0.9-1.1) APTT (24.1-38.0) SEC Sodium (135-145) mmol/L Potassium (3.3-5.1) mmol/L Chloride (96-108) mmol/L Carbon Dioxide (22-29) mmol/L Anion Gap (12-20) BUN (9-16) mg/dL Creatinine (0.5-1.4) mg/dL Estim Creat Clear Calc Estimated GFR Random Glucose (60-115) mg/dL Calcium (8.4-10.2) mg/dL Total Bilirubin (0.0-1.0) mg/dL AST (5-37) U/L ALT (0-40) U/L Alkaline Phosphatase (39-117) U/L Total Protein (6.5-8.0) g/dL Albumin (3.5-5.0) g/dL Lipase (8-78) U/L Peritoneal WBC 0.147 X10*3/uL Peritoneal RBC < 0.002 X10*6/uL [place] Neutrophils 12 % Per[place] Lymphocytes 62 % Peritoneal Monocytes 16 % Peritoneal Other Cells 10 % Discharge Plan Discharge Clinical Impression: S/P abdominal paracentesis Ascites Qualifiers: Ascites type: other type Qualified Code(s): R18.8 - Other ascites Chronic liver failure Qualifiers: Hepatic coma status: without hepatic coma Qualified Code(s): K72.10 - Chronic hepatic failure without coma
[2020-06-17 08:58] LABS: MANUAL DIFF FLAG NO
[2020-06-17 09:04] LABS: Basophils Percent Auto 0.8 % (0-2); Eosinophils Absolute Auto 0.2 X10*3/uL (0.0-0.4); Eosinophils Percent Auto 4.4 % (0-4); Hematocrit 26.5 % (42-52); Hemoglobin 8.4 g/dl (14.0-18.0); Imm Gran Abs Auto 0.02 X10*3/uL (0.00-0.03); Imm Gran Pct Auto 0.5 % (0.0-0.4); Lymphocytes Absolute Auto 0.8 X10*3/uL (1.2-4.9); Lymphocytes Percent Auto 19.5 % (20-40); Mean Corpuscular HGB Conc 31.7 g/dl (31.0-36.0); Mean Corpuscular Hemoglobin 30.9 pg (27.0-33.0); Mean Corpuscular Volume 97.4 fL (80-98); Mean Platelet Volume 10.9 fL (9.4-12.4); Monocytes Absolute Auto 0.4 X10*3/uL (0.1-1.2); Monocytes Percent Auto 11.3 % (2-11); Neutrophils Absolute Auto 2.5 X10*3/uL (2.0-8.3); Neutrophils Percent Auto 63.5 % (45-73); Red Blood Count 2.72 X10*6/uL (4.60-5.80); Red Cell Distribution Width 17.3 % (11.0-16.0); White Blood Count 3.9 X10*3/uL (4.8-10.8)
[2020-06-17 09:06] LABS: Platelet Count 58 X10*3/uL (160-400)
[2020-06-17 09:37] LABS: Alanine Aminotransferase 22 U/L (0-40); Alkaline Phosphatase 146 U/L (39-117); Anion Gap 9 (12-20); Aspartate Amino Transferase 48 U/L (5-37); Bilirubin Total 3.4 mg/dL (0.0-1.0); Blood Urea Nitrogen 12 mg/dL (9-16); Calcium 7.5 mg/dL (8.4-10.2); Carbon Dioxide 26 mmol/L (22-29); Chloride 104 mmol/L (96-108); Creatinine Clr Calc Pharmacy 138.7; Estimated Glomerular Filt Rate > 60; Glucose Random 91 mg/dL (60-115); Lipase 45 U/L (8-78); Potassium 4.1 mmol/L (3.3-5.1); Sodium 135 mmol/L (135-145); Total Protein 7.1 g/dL (6.5-8.0)
[2020-06-17 10:03] LABS: Partial Thromboplastin Time 43.1 SEC (24.1-38.0)
[2020-06-17 11:31] VITALS: BP 132/79; PULSE 97; RESP 18; O2SAT 98
--- NOTE | 2020-06-17 13:30 | PC.NURSE ---
taken to ir via stretcher.
--- NOTE | 2020-06-17 14:19 | HO.RADPN ---
RADIOLOGY Narrative Narrative: RLQ paracentesis performed using 5 Fr rapidcentesis catheter. 11.8 L clear yellow fluid removed. Diagnostic specimen sent as ordered. Patient received 50g IV albumin during procedure.
[2020-06-17] MEDS: Lidocaine HCl 1 % MPF 5 ML VIAL SUBCUT (14:41)
[2020-06-17 15:15] LABS: MN% 85.7 %; PMN% 14.3 %; WBC Peritoneal Fluid 0.147 X10*3/uL
[2020-06-17 15:16] LABS: RBC Peritoneal Fluid < 0.002 X10*6/uL
[2020-06-17] MEDS: Albumin Human 25 % 100 ML IV (15:27)
[2020-06-17 15:47] LABS: BF Shift QC OK YES; Lymphocyte Peritoneal Fl 62 %; Monocytes Peritoneal Fl 16 %; Neutrophils Peritoneal Fluid 12 %; Other Peritioneal Fl 10 %
[2020-06-17 15:48] LABS: Man Diluent Bkgrd OK YES
== END 2020-06-17 16:23 | disposition home or self-care (01) ==
PROVIDERS: Emergency Provider Emergency Medicine Emergency Medical Services; PCP Student in an Organized Health Care Education/Training Program
DX: R18.8 Other ascites (principal); K72.10 Chronic hepatic failure without coma; D63.8 Anemia in other chronic diseases classified elsewhere; D69.6 Thrombocytopenia, unspecified; Z98.890 Other specified postprocedural states; I50.9 Heart failure, unspecified
CPT/HCPCS: 36415; 49083; 80053; 83690; 85025; 85610; 85730; 87071; 87073; 87205; 89051; 96365; 99284; 99285; P9047

== ENCOUNTER 2020-06-19 17:21 | Emergency (ER) | payer MEDICAID, SELFPAY ==
[2020-06-19 17:46] VITALS: BP 140/74; PULSE 97; RESP 18; TEMP 36.8; O2SAT 99; BMI 45.6
[2020-06-19 18:20] VITALS: BP 143/73; PULSE 98; RESP 20; TEMP 36.9; O2SAT 100
[2020-06-19] MEDS: Lidocaine HCl 2%/Epi 1:100,000 20 ML VIAL INFILTRATI (18:53)
--- NOTE | 2020-06-19 19:14 | ED_ITS ---
HPI - General Adult General Chief complaint: Abdominal Pain Stated complaint: patch leaking Time Seen by Provider: 06/19/20 19:14 Source: patient Mode of arrival: ambulatory Limitations: language barrier History of Present Illness HPI narrative: 55-year-old male with a history of cirrhosis, abdominal distension, peripheral edema and shortness of breath presents for evaluation of a leaking paracentesis site. The patient was last seen in the emergency department on June 17 and had a large volume paracentesis done by Interventional Radiology. Patient states that over the past 2 days his abdomen has not stopped leaking since the procedure. The patient states that he has been compliant with his medications. He does not use alcohol. He denies fever, chills, chest pain, shortness of breath, abdominal pain, nausea or vomiting. Onset (ago): day(s) (2) Location: abdomen Radiation: non-radiation Severity: mild Quality: other (leaking) Relieving factors: none Exacerbating factors: movement Associated symptoms: denies other symptoms Treatments prior to arrival: none Related Data Allergies Allergy/AdvReac Type Severity Reaction Status Date / Time seafood Allergy Unknown Verified 06/19/20 18:30 Review of Systems Review of Systems: Constitutional: No Weight loss, No Fever, No Chills, No Night Sweats, No Fatigue, No Malaise ENT/Mouth: No Hearing loss, No Ear Pain, No Nasal Congestion, No Sinus Pain, No Hoarseness, No sore throat, No Rhinorrhea, No Swallowing Difficulty Eyes: No Eye Pain, No Swelling, No Redness, No Foreign Body, No Discharge, No Vision Changes Cardiovascular: No Chest Pain, No SOB, No Dyspnea on Exertion, No Orthopnea, No Edema, No Palpitations Respiratory: No Cough, No Sputum, No Wheezing, No Smoke Exposure, No Dyspnea Gastrointestinal: No Nausea, No Vomiting, No Diarrhea, No Constipation, No abdominal Pain, No Hematochezia, No Melena Genitourinary: no irregular bleeding, No Dysuria, No Urinary Frequency, No Hematuria, No Urinary Incontinence, No Urgency, No Flank Pain, No Urinary Flow Changes, No Hesitancy Musculoskeletal: No joint pain, No Myalgias, No Joint Swelling Skin: Drainage from paracentesis site to the right lateral abdomen, No Skin Lesions, No rash Neuro: No Weakness, No Numbness, No Paresthesias, No Loss of Consciousness, No Dizziness, No Headache Psych: No Anxiety/Panic, No Depression, No SI/HI/AH/VH, No Social Issues Heme/Lymph: No Bruising, No Bleeding,No Lymphadenopathy Endocrine: No Polyuria, No Polydipsia, No Temperature Intolerance Yes all other systems are reviewed and are negative [facility] Past Medical History Attestation statement: The following information was validated with the patient. Source: old records reviewed Medical History CHF (congestive heart failure) Hepatic cirrhosis Social History Social History Alcohol intake: former Smoking Status: Never smoker Use of substances other than those prescribed or required for medical reasons: No Advance Directives: No Advance Directives Information Provided: Yes Physical Exam Vital Signs: Vital Signs: Last Vital Signs Temp 98.4 F 06/19/20 18:20 Pulse 98 06/19/20 18:20 Resp 20 06/19/20 18:20 BP 143/73 H 06/19/20 18:20 Pulse Ox 100 06/19/20 18:20 Body Mass Index 45.6 Appearance: Alert. Oriented X3. No acute distress. Eyes: Pupils equal, round and reactive to light. ENT: Pharynx normal. Neck: Normal inspection. Neck supple. CVS: Normal heart rate and rhythm. Pulses normal. Respiratory: No respiratory distress. Breath sounds normal. Abdomen: Soft and nontender, distended consistent with history of ascites. Positive clear yellow fluid draining from puncture site from prior paracentesis on 06/17/2020 Skin: Skin warm and dry. Normal skin color. Normal skin turgor. Extremities: No lower extremity edema. Neuro: No motor deficit. No sensory deficit. Course Course Course Narrative: 55-year-old male presents with peritoneal fluid leaking from a paracentesis site. Stated that he had paracentesis on 06/17/2020, records reviewed, patient is afebrile, no abdominal pain to deep palpation, no fevers or chills. Plan of care is to for pursestring suture the site. Detailed description of procedure discussed with the patient and he agrees with this plan. Prepped and draped in sterile fashion, 1 mL of lidocaine with epinephrine used to anesthetize the site, 1 pursestring suture at 4 quadrants or surrounding the puncture wound using 3-12 nylon. No drainage noted immediately after the procedure. Patient re-evaluated, vigorously ambulated with no drainage noted from the site. Plan of care is for patient to return in 3 days to have sutures removed, he does understand that if drainage were to continue or if he were to develop fevers or chills that he should return immediately. disbursing officer utilized for all correspondence. Google translate utilized for discharge instructions. Patient verbalized understanding of and agrees to plan of care discharge home. Medical Decision Making Differential Diagnosis Differential Diagnosis: Complications status post paracentesis procedure Medical Records Medical records reviewed: Yes I reviewed the patient's medical records. Lab Data Lab results reviewed: Yes I reviewed the patient's lab results. Discharge Plan Discharge Clinical Impression: Status post abdominal paracentesis, Complication of procedure Patient Disposition: Home, Self-Care Instructions: Ascites (ED), Paracentesis (DC) Additional Instructions: Te evaluaron para detectar fugas en el sitio de la paracentesis. Aplicamos alejandro sutura de cuerda de bolso. Por favor, regrese en 3 d?as para la evaluaci?n y la eliminaci?n de sutura. Si regresa al departamento de emergencias despu?s de las 5:00 p.m., pregunte por Antonella, la enfermera practicante que aplic? la sutura. Si el sitio comienza a tener fugas de l?quido, por favor regrese al departamento de emergencias antes. Si nota fiebre, escalofr?os o dolor abdominal, por favor regrese para la evaluaci?n Mireille por elegir sera departamento de emergencias para la evaluaci?n. Por favor, james un seguimiento con el m?dico de atenci?n primaria seg?n sea necesario. Regrese al servicio de urgencias para cualquier s?ntoma nuevo, preocupante o que empeore. You were evaluated for leaking paracentesis site. We applied a pursestring suture. Please return in 3 days for evaluation and suture removal. If you return to the emergency department after 5:00 p.m., ask for Antonella, the nurse practitioner that applied the suture. If the site starts leaking fluid please return to the emergency department sooner. If he notice fevers, chills, or abdominal pain please return for eval uation Thank you for choosing this emergency department for evaluation. Please follow-up with primary care physician as needed. Return to the emergency department for any new, concerning, or worsening symptoms. Interventions: ED Discharge Assessment Last Done: 06/19/20 19:50 Discharge Date/Time: 06/19/20 19:51
== END 2020-06-19 19:51 | disposition home or self-care (01) ==
PROVIDERS: Emergency Provider Emergency Medicine; PCP Student in an Organized Health Care Education/Training Program
DX: T81.89XA Other complications of procedures, not elsewhere classified, initial encounter (principal); R18.8 Other ascites; X58.XXXA Exposure to other specified factors, initial encounter
CPT/HCPCS: 12001; 99284

== ENCOUNTER 2020-06-23 17:21 | Emergency (ER) | payer MEDICAID, SELFPAY ==
[2020-06-23 18:40] VITALS: BP 131/69; PULSE 90; RESP 18; TEMP 37.1; O2SAT 99; BMI 103.8
--- NOTE | 2020-06-23 20:12 | ED.WOUNDLAC ---
HPI - Wound/Laceration General Chief Complaint: Wound/Laceration Stated Complaint: suture removal Source: patient Mode of arrival: ambulatory Limitations: no limitations History of Present Illness HPI narrative: 55-year-old male with a history of cirrhosis, abdominal distension, peripheral edema and shortness of breath presents for suture removal after a visit on 06/19/2020 for evaluation of a leaking paracentesis site after a large volume paracentesis done by Interventional Radiology. Since the pursestring suture was applied, patient does not report any further fluid leaking and states that he has been compliant with his medications. He does not use alcohol. He denies fever, chills, chest pain, shortness of breath, abdominal pain, nausea or vomiting. Location: abdomen Patient tetanus UTD: Yes Associated symptoms: none Related Data Allergies Allergy/AdvReac Type Severity Reaction Status Date / Time seafood Allergy Unknown Verified 06/23/20 18:40 Review of Systems Review of Systems: Constitutional: No Fever, No Chills ENT/Mouth: No Ear Pain, No Hoarseness, No sore throat Eyes: No Eye Pain, No Swelling, No Redness, No Foreign Body Cardiovascular: No Chest Pain, No SOB Respiratory: No Cough, No Dyspnea Gastrointestinal: Positive abdominal distention, No Nausea, No Vomiting, No Diarrhea, No abdominal Pain Genitourinary: No Dysuria, No Hematuria Musculoskeletal: No joint pain, No Myalgias, No Joint Swelling Skin: No Skin lacerations, No rash Neuro: No Weakness, No Numbness, No Paresthesias, No Loss of Consciousness, No Dizziness, No Headache Psych: No Anxiety/Panic, No Depression Heme/Lymph: no easy bruising, no Lymphadenopathy Endocrine: No Polyuria, No Polydipsia Yes all other systems are reviewed and are negative [facility] Past Medical History Attestation statement: The following information was validated with the patient. Source: old records reviewed Medical History CHF (congestive heart failure) Hepatic cirrhosis Social History Social History Alcohol intake: unknown Smoking Status: Unknown if ever smoked Use of substances other than those prescribed or required for medical reasons: Unknown Advance Directives: No Advance Directives Information Provided: Yes Physical Exam Vital Signs: Vital Signs: Last Vital Signs Temp 98.2 F 06/23/20 20:19 Pulse 91 06/23/20 20:19 Resp 17 06/23/20 20:19 BP 142/88 H 06/23/20 20:19 Pulse Ox 98 06/23/20 20:19 Body Mass Index 103.8 Appearance: Alert. Oriented X3. No acute distress. Eyes: Pupils equal, round and reactive to light. ENT: Pharynx normal. Neck: Normal inspection. Neck supple. CVS: Normal heart rate and rhythm. Pulses normal. Respiratory: No respiratory distress. Breath sounds normal. Abdomen: Soft and nontender. Skin: Skin warm and dry. Normal skin color. Normal skin turgor. Extremities: No lower extremity edema. Neuro: No motor deficit. No sensory deficit. Course Course Course Narrative: 55-year-old male presents for suture removal. Suture removed without difficulty. No indication of infection or adverse findings. MDM - Wound/Laceration MDM Narrative Medical decision making narrative: Suture removal Medical Records Attestation: I reviewed the patient's medical records. Discharge Plan Discharge Clinical Impression: Visit for suture removal Patient Disposition: Home, Self-Care Instructions: Stitches Removal (ED) Additional Instructions: Your pursestring suture was removed to the right lateral abdomen. Please continue to follow-up with your physician for further paracentesis. Thank you for choosing this emergency department for evaluation. Please follow-up with primary care physician as needed. Return to the emergency department for any new, concerning, or worsening symptoms. Interventions: ED Discharge Assessment Last Done: 06/23/20 20:30 Discharge Date/Time: 06/23/20 20:31
[2020-06-23 20:19] VITALS: BP 142/88; PULSE 91; RESP 17; TEMP 36.8; O2SAT 98
== END 2020-06-23 20:31 | disposition home or self-care (01) ==
PROVIDERS: Emergency Provider Internal Medicine; PCP Student in an Organized Health Care Education/Training Program
DX: Z48.02 Encounter for removal of sutures (principal)
CPT/HCPCS: 99283; 99284

== ENCOUNTER 2020-08-18 11:23 | Outpatient (REF) | payer MEDICAID, SELFPAY ==
[2020-08-18 12:13] LABS: COVID-19 Test Positive (Negative)
== END 2020-08-18 11:24 | disposition home or self-care (01) ==
LOC: HO.LAB 11:23
PROVIDERS: Visit Provider Internal Medicine
DX: Z20.822 Contact with and (suspected) exposure to COVID-19 (principal)
CPT/HCPCS: 36415; 87635; C9803

== ENCOUNTER 2021-06-23 11:46 | Outpatient (REF) | payer MEDICAID, SELFPAY ==
[2021-06-23 12:27] LABS: Hematocrit 30.7 % (42.0-52.0); Hemoglobin 10.1 g/dl (14.0-18.0); Mean Corpuscular HGB Conc 32.9 g/dl (31.0-36.0); Mean Corpuscular Hemoglobin 31.6 pg (27.0-33.0); Mean Corpuscular Volume 95.9 fL (80.0-98.0); Mean Platelet Volume 10.8 fL (9.4-12.4); White Blood Count 4.1 X10*3/uL (4.8-10.8)
[2021-06-23 12:32] LABS: Ammonia 72 umol/L (13-55)
[2021-06-23 12:41] LABS: Platelet Count 58 X10*3/uL (160-400)
[2021-06-23 12:51] LABS: Alanine Aminotransferase 29 U/L (0-40); Albumin Level 2.3 g/dL (3.5-5.0); Alkaline Phosphatase 128 U/L (39-117); Anion Gap 9 (12-20); Aspartate Amino Transferase 49 U/L (5-37); Bilirubin Direct 1.4 mg/dL (0.0-0.5); Bilirubin Total 3.3 mg/dL (0.0-1.0); Blood Urea Nitrogen 16 mg/dL (9-16); Calcium 8.7 mg/dL (8.4-10.2); Carbon Dioxide 25 mmol/L (22-29); Chloride 100 mmol/L (96-108); Cholesterol 143 mg/dL; Estimated Glomerular Filt Rate > 60; Glucose Random 96 mg/dL (60-115); HDL Cholesterol 26 mg/dL; LDL Cholesterol Calculated 106 mg/dl; Potassium 4.7 mmol/L (3.3-5.1); Sodium 129 mmol/L (135-145); Total Protein 7.2 g/dL (6.5-8.0); Triglycerides 55 mg/dL
[2021-06-23 17:13] LABS: Osmolality, Serum 278 mosm/kg (281-305)
== END 2021-06-23 11:47 | disposition home or self-care (01) ==
LOC: HO.LAB 11:46
PROVIDERS: PCP Student in an Organized Health Care Education/Training Program; Visit Provider Student in an Organized Health Care Education/Training Program
DX: K74.60 Unspecified cirrhosis of liver (principal)
CPT/HCPCS: 36415; 80048; 80061; 80076; 82140; 83930; 84443; 85027

== ENCOUNTER 2021-06-23 12:30 | Inpatient (IN) | payer MEDICAID, SELFPAY ==
--- NOTE | ~2021-06-23 | MR_ITS ---
EXAMINATION: MR BRAIN WITHOUT CONTRAST CLINICAL INFORMATION: Infarction. Multiple falls. COMPARISON: CT head from 06/23/2021. TECHNIQUE: MRI of the brain was obtained using routine sequences without contrast. FINDINGS: No focal restricted diffusion is demonstrated to suggest acute or subacute cerebral ischemia. No evidence of acute hemorrhagic products on heme-sensitive imaging. Punctate focus of susceptibility artifact within the high right parietal lobe consistent with petechial microhemorrhage. Scattered periventricular, deep white matter, and brainstem T2 FLAIR hyperintensities less commonly seen with moderate underlying microangiopathy. Symmetric T1 shortening of the bilateral subthalamic regions. Proportional prominence of the ventricles and sulcal spaces without evidence of obstructive hydrocephalus. No abnormal mass effect. No midline shift. Normal appearance of the pituitary gland. Normal positioning of the cerebellar tonsils. Normal arterial and venous vascular flow voids are present. Normal, homogeneous marrow signal. Mild mucosal thickening of the paranasal sinuses. Mucous retention cyst within the left maxillary sinus. No signal abnormalities within the mastoids. Bilateral lens extractions. MR/MR head/brain wo con IMPRESSION: 1. No acute intracranial abnormalities. 2. Moderate nonspecific white matter changes most commonly seen with underlying microangiopathy. 3. Symmetric T1 shortening of the subthalamic regions suggestive of underlying metabolic disorder.
--- NOTE | ~2021-06-23 | CT_ITS ---
EXAMINATION: CT HEAD WITHOUT CONTRAST CLINICAL INFORMATION: Multiple falls. COMPARISON: None. TECHNIQUE: Contiguous axial imaging was performed from the skull base to vertex without intravenous administration of contrast. This CT examination was performed using dose optimization techniques as appropriate, variously including the following: *Automated exposure control *Adjustment of mA and/or kV according to patient size (this includes techniques or standardized protocols for targeted exams where dose is matched to indication/reason for exam; i.e. extremities or head) *Use of iterative reconstruction technique DLP: 671 mGy-cm FINDINGS: Age indeterminate small hypodensity in the right frontal lobe (6:50 and 2:37). There is no evidence of acute intracranial hemorrhage or edematous territorial infarction. A few foci of hypoattenuation in the periventricular and deep white matter are consistent with mild microangiopathy. Blair-white matter differentiation is preserved. The ventricles are normal in size and configuration. No evidence for obstructive hydrocephalus. No abnormal mass effect or midline shift. No extra-axial fluid collections. No acute soft tissue or osseous abnormalities. Mucous retention cyst in the anterior left maxillary sinus. Mild mucosal thickening of the paranasal sinuses. Trace mastoid effusions. Cerumen in both external auditory canals. CT/CT head/brain wo con IMPRESSION: Age indeterminate subcentimeter hypodensity possibly infarct in the right frontal lobe. If clinically pertinent, recommend correlation with an MR of the brain. This result was discussed with Dr. Cowan at 06/23/2021 6:52 PM and it was ascertained that the content of the report was understood at the time of direct communication.
--- NOTE | ~2021-06-23 | CT_ITS ---
EXAMINATION: CT LUMBAR SPINE WITHOUT CONTRAST CLINICAL INFORMATION: Frequent falls. COMPARISON: None TECHNIQUE: CT scan of lumbosacral spine was performed with reconstruction imaging performed at the acquisition workstation. This CT examination was performed using dose optimization techniques as appropriate, variously including the following: *Automated exposure control. *Adjustment of mA and/or kV according to patient size (this includes techniques or standardized protocols for targeted exams where dose is matched to indication/reason for exam; i.e. extremities or head). *Use of iterative reconstruction technique. DLP; 700 mGy-cm FINDINGS: Vertebral bodies normally aligned. There is no fracture or bone lesion. No disc space narrowing. Incidental note is made of small non-obstructing bilateral renal calculi measuring 2 mm. No hydronephrosis or hydroureter in the area imaged. Trace fluid or edema along Gerota's fascia bilaterally. SPINAL LEVELS: T12-L1: Normal. L1-L2: Normal. L2-L3: Normal. L3-L4: Minimal bulging of the disc minimally encroaching on the central canal and neural foramina bilaterally. Facets normal. L4-L5: Minimal generalized bulging of the discs minimally encroaching on the central canal and neural foramina bilaterally. Facets normal. L5-S1: Minimal generalized bulging of the disc minimally encroaching on the central canal and neural foramina. Facets normal. CT/CT lumbar spine wo con IMPRESSION: 1. Minimal spondylosis of the lumbosacral spine. 2. Incidental note made of bilateral small non-obstructing renal calculi. 3. Minimal nonspecific mild fluid/edema along Gerota's fascia bilaterally.
--- NOTE | ~2021-06-23 | US_ITS ---
EXAMINATION: US ABDOMEN LIMITED CLINICAL INFORMATION: Question ascites. COMPARISON: None TECHNIQUE: Real-time 4 quadrant ultrasound of the abdomen. FINDINGS: 4 quadrant ultrasound demonstrates trace simple free fluid in the pelvis. US/US abdomen limited IMPRESSION: Trace nondrainable fluid within the pelvis only.
[2021-06-23 13:25] VITALS: BP 114/93; PULSE 89; RESP 19; TEMP 36.6; O2SAT 99; BMI 33.8
--- NOTE | 2021-06-23 17:11 | ED.GENADULT ---
HPI - General Adult General Chief complaint: Recheck/Abnormal Lab/Rx Stated complaint: abnormal labs Time Seen by Provider: 06/23/21 15:04 History of Present Illness HPI narrative: Patient history of alcoholic cirrhosis on liver transplant list at [facility] comes here for increased weakness and frequent falls for last 1 week had multiple falls PCP ordered labs as outpatient showed sodium of 129 and ammonia of 72 patient not taking lactulose now on daily basis more lethargic and confused sometimes denies any headache or chest pain or shortness of breath Related Data Home Medications Medication Instructions Recorded Confirmed escitalopram oxalate 10 mg tablet 1 tab PO DAILY 06/23/21 06/23/21 furosemide 20 mg tablet 1 tab PO DAILY 06/23/21 06/23/21 furosemide 40 mg tablet 1 tab PO DAILY 06/23/21 06/23/21 lactulose 10 gram/15 mL oral 15 ml PO DAILY 06/23/21 06/23/21 solution (Constulose) spironolactone 100 mg tablet 1 tab PO TIDWM 06/23/21 06/23/21 temazepam 15 mg capsule 1 cap PO BEDTIME 06/23/21 06/23/21 Allergies Allergy/AdvReac Type Severity Reaction Status Date / Time seafood Allergy Unknown Verified 06/23/20 18:40 Review of Systems Review of Systems: Yes all other systems are reviewed and are negative PMFSH Past Medical History Medical History CHF (congestive heart failure) Hepatic cirrhosis Social History Social History Alcohol intake: never Patient Tobacco Use Status: Never used Tobacco Use of substances other than those prescribed or required for medical reasons: No Advance Directives: No Advance Directives Information Provided: No Physical Exam ED Vital Signs: Vital Signs - 24 hr 06/23/21 13:25 06/23/21 17:46 Temperature 98 F 98.7 F Pulse Rate 89 92 Respiratory Rate 19 18 Blood Pressure 114/93 H 93/45 L Pulse Oximetry 99 99 BMI result Body Mass Index 33.8 Appearance: Alert. Oriented X3. No acute distress. Eyes: Slight icterus+ ENT: Pharynx normal. Oral Mucosa moist head atraumatic normocephalic Neck: Normal inspection. Neck supple. No midline tenderness CVS: Normal heart rate and rhythm. Pulses normal. Respiratory: No respiratory distress. Equal air entry bilateral, no wheezing/rales/rhonchi Abdomen: Soft and nontender. Bowel sounds are present, no mass palpable, no CVA tenderness Skin: Skin warm and dry. Normal skin color. Normal skin turgor. Extremities: 2+ lower extremity edema. No calf tenderness no hepatic flap Neuro: Oriented X 3. No motor deficit. No sensory deficit.No cerebellar signs , cranial nerves II-XII intact Medical Decision Making MDM Narrative Medical decision making narrative: Patient with frequent falls follow in 6-7 times last 1 week with unsteady gait noncompliant with lactulose had elevated ammonia level of 72 and urine osmolality of 764 urine sodium of 36 serum osmolality of 278, will start patient on normal saline 75 cc per hour and admit CT scan negative for acute bleed , old changes in frontal lobe no focal deficit Lab Data Lab results reviewed: Yes I reviewed the patient's lab results. Labs: Lab Results 06/23/21 06/23/21 Range/Units 17:46 18:23 PT 20.4 H (9.9-13.0) SEC INR 1.8 H (0.9-1.1) APTT 39.0 H (24.1-38.0) SEC COVID-19 ([facility]) Negative (Negative) COVID-19 Clin Com See Note Discharge Plan Discharge Clinical Impression: Hyponatremia, Hepatic encephalopathy Patient Disposition: Admitted As Inpatient
[2021-06-23 17:46] VITALS: BP 93/45; PULSE 92; RESP 18; TEMP 37.1; O2SAT 99
[2021-06-23] MEDS: Lactulose 20 GM/30 ML SOLUTION 30 GM PO (17:52)
--- NOTE | 2021-06-23 17:53 | PC.NURSE ---
patient a&o, house manager applied, nsr 90s, vitals obtained- pt bp soft- vitals otherwise stable, iv inserted, lab drawn, pt medicated per order, will continue to monitor.
[2021-06-23 18:07] LABS: COVID-19 Test Negative (Negative)
[2021-06-23 18:36] LABS: INTERNATIONAL NORM RATIO 1.8 (0.9-1.1); Prothrombin Time 20.4 SEC (9.9-13.0)
--- NOTE | 2021-06-23 19:16 | PHA.MEDREC ---
Pharmacy Consult ? Medication Reconciliation Pharmacy has completed the medication reconciliation.
--- NOTE | 2021-06-23 19:37 | PM.IMHP ---
History of Present Illness Date of Service: 06/23/21 Chief Complaint: Confusion 56-year-old male with a past medical history of alcoholic liver cirrhosis, ascites, CHF, depression presented to the hospital today with a chief complaint of falls. Most of the history obtained from the patient's over the phone. Patient is alert and awake, generally slow in responding; but oriented times 2-3. Per patient patient has been having multiple falls over the past 1 week, fell about 10 times; denies any head strike or loss of consciousness. Patient denies any headaches neck pain back pain hip pain or joint pains. Denies any chest pain, palpitations, dizziness, lightheadedness. Denies any fever chills cough. Denies any GI symptoms. Given falls this spoke to the patient's primary care who did the routine labs and noted to have elevated ammonia levels and low sodium levels and also due to the ER for further evaluation. 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) Alcohol intake: never Patient Tobacco Use Status: Never used Tobacco e-Cigarette/Vaping Use: Never Used Advance Directives Date on File: 06/24/21 service: No Current occupational status: disabled Meds Allergies Allergy/AdvReac Type Severity Reaction Status Date / Time seafood Allergy Unknown Verified 06/23/20 18:40 Home Medications Medication Instructions Recorded Confirmed Last Taken Type escitalopram oxalate 10 mg tablet 1 tab PO DAILY 06/23/21 06/23/21 06/22/21 History furosemide 20 mg tablet 1 tab PO DAILY 06/23/21 06/23/21 06/22/21 History furosemide 40 mg tablet 1 tab PO DAILY 06/23/21 06/23/21 06/22/21 History lactulose 10 gram/15 mL oral 15 ml PO DAILY 06/23/21 06/23/21 06/22/21 History solution (Constulose) spironolactone 100 mg tablet 1 tab PO TIDWM 06/23/21 06/23/21 06/22/21 History temazepam 15 mg capsule 1 cap PO BEDTIME 06/23/21 06/23/21 06/22/21 History Physical Exam Vital Signs and Narrative: Vital Signs: Last Vital Signs Temp 98.7 F 06/23/21 17:46 Pulse 92 06/23/21 17:46 Resp 18 06/23/21 17:46 BP 93/45 L 06/23/21 17:46 Pulse Ox 99 06/23/21 17:46 BMI result Body Mass Index 33.8 Gen: Appears be in no acute distress HEENT: NCAT, Moist mucosa. Pulmonary: Vesicular breath sounds, fair air entry CVS: Faint murmur+ Abdomen: BS+, Soft, Nontender Extremities: Warm well perfused Neuro: Alert and awake. Results Labs CBC and Chem 7: 06/27/21 06:38 06/28/21 08:20 Labs: Laboratory Results - last 24 hr 06/23/21 06/23/21 17:46 18:23 PT 20.4 H INR 1.8 H APTT 39.0 H COVID-19 ([facility]) Negative COVID-19 Clin Com See Note Imaging Radiologist's Impressions: Impressions Head CT 06/23/21 18:17 IMPRESSION: Age indeterminate subcentimeter hypodensity possibly infarct in the right frontal lobe. If clinically pertinent, recommend correlation with an MR of the brain. This result was discussed with Dr. Cowan at 06/23/2021 6:52 PM and it was ascertained that the content of the report was understood at the time of direct communication. Assessment and Plan (1) Hepatic encephalopathy: (2) Hyponatremia: Status: Acute Plan 56-year-old male with a past medical history of alcoholic liver cirrhosis, ascites, CHF, depression presented to the hospital today with a chief complaint of falls. Noted to have following Recurrent Falls: Mechanical nature. Denies any head strike or loss of consciousness. CT head showed age indeterminate right frontal lobe infarct. Will consult Neurology Will obtain folate B12 and TSH, RPR Fall precautions Mild hyponatremia: Urine osmolality 764, urine sodium 36, serum osmolality 278; Pending Cortisol levels Fluid restriction Nephrology follow-up Altered mental status: Patient is generally slow in responding; oriented times 2-3 Likely in setting of toxic metabolic encephalopathy/hepatic encephalopathy. Noted elevated ammonia levels Will keep the patient on lactulose with a goal bowel movements of 3-4 per day Supportive care Thrombocytopenia: Current levels are at his baseline around 56. Denies any active signs of bleeding. Urine nitrites positive: Per report urine pigment is obscuring the results. Patient denies any urinary symptoms. Urine WBC negative. Will hold of antibiotics for now. Follow up cultures. History of liver cirrhosis: Patient on Lasix and Aldactone at home. Will continue History of depression: Continue home escitalopram DVT prophylaxis: SCD boots. Holding pharmacologic agent for now given severe thrombocytopenia Code status: Full code. Confirmed with the patient's Quality Stroke Does the patient have a stroke diagnosis?: No VTE Prior VTE?: No VTE Risk Level:: Medical - moderate - high VTE Device Contraindication: Treatment Not Indicated VTE Drug Contraindication: N/A - Med Ordered
[2021-06-23 20:16] LABS: Appearance Urine CLEAR; Glucose Urine UA NEG (NEG); Leukocyte Esterase Urine NEG (NEG); Specific Gravity - Urine >= 1.030 (1.005-1.025); UACC Culture Trigger YES; Urine Blood NEG (NEG); Urine Ketones 5 MG/DL (NEG); Urine Protein TRACE MG/DL (NEG-TRACE)
[2021-06-23 20:22] LABS: Color Urine ORANGE; Nitrite Urine POS (NEG)
[2021-06-23 20:29] LABS: Bacteria Urine TRACE /LPF; Mucus Urine TRACE /LPF; Squamous Epithelial Cell Urine TRACE /LPF
[2021-06-23 20:47] LABS: Osmolality Urine 764 mosm/kg (373-1093)
[2021-06-23] MEDS: Lactulose 20 GM/30 ML SOLUTION PO (21:41)
[2021-06-23] MEDS: 0.9 % Sodium Chloride 1,000 ML 75 ML IVCONT (21:41)
[2021-06-23 22:30] LABS: Syphilis Screen Nonreactive (Nonreactive)
[2021-06-23 22:35] LABS: Cortisol Random 12.5 ug/dL
[2021-06-23 22:43] LABS: Folate 13.2 ng/mL (> or = 4.0); Vitamin B12 1383 pg/mL (200-900)
[2021-06-23 23:18] VITALS: BP 121/55; PULSE 92; RESP 15; TEMP 37.1; O2SAT 100
[2021-06-24 04:55] LABS: MANUAL DIFF FLAG NO
[2021-06-24 05:01] LABS: Basophils Percent Auto 0.7 % (0-2); Eosinophils Absolute Auto 0.1 X10*3/uL (0.0-0.4); Eosinophils Percent Auto 2.5 % (0-4); Hematocrit 26.3 % (42.0-52.0); Hemoglobin 8.9 g/dl (14.0-18.0); Imm Gran Abs Auto 0.02 X10*3/uL (0.00-0.03); Imm Gran Pct Auto 0.5 % (0.0-0.4); Lymphocytes Absolute Auto 0.7 X10*3/uL (1.2-4.9); Lymphocytes Percent Auto 15.9 % (20-40); Mean Corpuscular HGB Conc 33.8 g/dl (31.0-36.0); Mean Corpuscular Hemoglobin 32.1 pg (27.0-33.0); Mean Corpuscular Volume 94.9 fL (80.0-98.0); Mean Platelet Volume 11.5 fL (9.4-12.4); Monocytes Absolute Auto 0.6 X10*3/uL (0.1-1.2); Monocytes Percent Auto 14.4 % (2-11); Neutrophils Absolute Auto 2.9 x10*3/uL (2.0-8.3); Red Blood Count 2.77 X10*6/uL (4.60-5.80); Red Cell Distribution Width 16.1 % (11.0-16.0); White Blood Count 4.4 X10*3/uL (4.8-10.8)
[2021-06-24 05:03] LABS: Platelet Count 44 X10*3/uL (160-400)
[2021-06-24 05:16] LABS: Anion Gap 7 (12-20); Blood Urea Nitrogen 17 mg/dL (9-16); Calcium 8.3 mg/dL (8.4-10.2); Carbon Dioxide 22 mmol/L (22-29); Chloride 101 mmol/L (96-108); Cholesterol 125 mg/dL; Creatinine Clr Calc Pharmacy 103.2; Estimated Glomerular Filt Rate > 60; Glucose Random 95 mg/dL (60-115); HDL Cholesterol 21 mg/dL; LDL Cholesterol Calculated 93 mg/dl; Potassium 4.2 mmol/L (3.3-5.1); Sodium 126 mmol/L (135-145); Triglycerides 56 mg/dL
[2021-06-24 06:07] VITALS: BP 122/91; PULSE 95; RESP 13; TEMP 37.2; O2SAT 99
[2021-06-24 08:07] VITALS: BP 104/52; PULSE 99; RESP 18; O2SAT 99
[2021-06-24] MEDS: Lactulose 20 GM/30 ML SOLUTION PO ×3 (08:08→21:23)
[2021-06-24] MEDS: Furosemide 40 MG TABLET PO (08:08)
[2021-06-24] MEDS: 0.9 % Sodium Chloride Flush 3 ML SYRINGE IVFLUSH ×2 (08:09→21:23)
[2021-06-24] MEDS: Spironolactone 25 MG TABLET 100 MG PO (08:09)
[2021-06-24] MEDS: Escitalopram Oxalate 10 MG TABLET PO (08:09)
[2021-06-24 09:01] LABS: Osmolality Urine 800 mosm/kg (373-1093)
[2021-06-24 09:04] LABS: Anion Gap 7 (12-20); Blood Urea Nitrogen 16 mg/dL (9-16); Calcium 8.4 mg/dL (8.4-10.2); Carbon Dioxide 25 mmol/L (22-29); Chloride 100 mmol/L (96-108); Creatinine Clr Calc Pharmacy 95.5; Estimated Glomerular Filt Rate > 60; Glucose Random 107 mg/dL (60-115); Potassium 4.1 mmol/L (3.3-5.1); Sodium 128 mmol/L (135-145)
[2021-06-24 10:31] VITALS: BP 130/73; PULSE 94; RESP 14; TEMP 37.1; O2SAT 97
--- NOTE | 2021-06-24 12:17 | PC.NURSE ---
Pt received from main ER, after being moved this morning with several other pts to overflow: Pt AOX4 and offers no complaints. Heart sounds normal and lungs clear. Pt abd round, soft and non-tender. Pt self ambulatory with steady gait to BR. Pt is receiving lactulose.
--- NOTE | 2021-06-24 12:23 | CONS_ITS ---
DATE OF SERVICE: 06/24/2021 REFERRING PHYSICIAN: Dr. Csota REASON FOR CONSULTATION: Hepatic encephalopathy. HISTORY OF PRESENT ILLNESS: The patient is a 56-year-old man who presented to the emergency room yesterday with complaints of falling. He was evaluated with laboratory studies and noted to have elevated ammonia. He was diagnosed with hepatic encephalopathy and admitted to the hospital. The patient has a history of end-stage liver disease on the basis of nonalcoholic fatty liver disease/CAZARES. His liver disease has been complicated by ascites requiring diuretic therapy. He also has a history of nonbleeding esophageal varices and hepatic encephalopathy. He has reportedly been on lactulose at home and states compliance with this. He is followed at [facility] and at [facility] in [place] where he has been listed for liver transplant. He was also noted to be hyponatremic on admission and is being evaluated by Nephrology. PAST MEDICAL HISTORY: 1. End-stage liver disease with cirrhosis, ascites, hepatic encephalopathy, and nonbleeding esophageal varices as above. 2. Colon polyps. Last EGD and colonoscopy in July 2021. Followup colonoscopy recommended in 3 years because of history of polyps. 3. Congestive heart failure. CURRENT MEDICATIONS: His current medication list is reviewed in the chart. ALLERGIES: THERE ARE NO REPORTED DRUG ALLERGIES. FAMILY HISTORY: This is reviewed in the electronic medical record. SOCIAL HISTORY: He reports he has not had any alcohol since 2019. Prior to that, he was listed as a social drinker. There is no substance abuse. REVIEW OF SYSTEMS: Not reliably obtainable due to encephalopathy. PHYSICAL EXAMINATION: GENERAL: Shows a pleasant male, lying on a stretcher. VITAL SIGNS: Reviewed in the electronic medical record and are stable. SKIN: Anicteric. HEENT: Shows no scleral icterus. NECK: Without lymphadenopathy or thyromegaly. LUNGS: Clear. HEART: Shows a regular rate and rhythm. S1, S2. No murmur. ABDOMEN: Soft without focal masses, tenderness, guarding, or rebound. EXTREMITIES: Show trace edema. LABORATORY DATA: Shows a white blood cell count of 4.4, INR 1.8, platelet count 44. Sodium 128. Liver function tests from yesterday showed a total bilirubin of 3.3 with an AST of 49 and an ALT of 29. There are no recent imaging studies of the abdomen. IMPRESSION: Hepatic encephalopathy. At this time, he appears stable. He does have mild asterixis on examination, and his lactulose dose has been increased to t.i.d. I would recommend monitoring him clinically to determine his response to lactulose. If he continues to have problems with encephalopathy, rifaximin could be considered. I would recommend continuing his diuretics because of his history of ascites, which has required paracentesis in the past. He is advised to continue to follow up with his primary GI provider in [place] [facility] in [place]. Thanks for asking me to see him. I will follow him in the hospital with you. MD KRISTEN Lu/FLAVIA / [id number]
--- NOTE | 2021-06-24 15:06 | P.PNIM_ITS ---
Subjective Subjective Date of Service: 06/24/21 Interval History: seen and examined this morning follow up for hepatic encephalopathy, hyponatremia awake and alert but slow to answer questions Review of Systems Review of Systems: Yes all other systems are reviewed and are negative Constitutional Constitutional: Denies chills and Denies fever(s) Cardiovascular Cardiovascular: Denies dyspnea Respiratory Respiratory: Denies dyspnea Gastrointestinal Gastrointestinal: Denies abdominal pain Physical Exam Vital Signs: Vital Signs: Last Vital Signs Temp 98.7 F 06/24/21 10:31 Pulse 94 06/24/21 10:31 Resp 14 06/24/21 10:31 BP 130/73 06/24/21 10:31 Pulse Ox 97 06/24/21 10:31 BMI result Body Mass Index 33.8 Const: General: cooperative, comfortable, no acute distress, alert and awake Nutritional Appearance: overweight Resp: Effort & Inspection: normal respiratory effort and able to speak in complete sentences Cardio: Heart sounds: S1 normal heart sound present and S2 normal heart sound present GI: Palpation (GI): Soft to palpation and nontender Neuro: Motor exam (neuro): Asterixis during motor activity present (mild) Objective Data Active Medications Acetaminophen (Acetaminophen 325 Mg Tablet) 650 mg PO Q6H PRN PRN Reason: Pain, Mild (Pain Scale 1-3) Escitalopram Oxalate (Escitalopram Oxalate 10 Mg Tablet) 10 mg PO DAILY [facility] Last Admin: 06/24/21 08:09 Dose: 10 mg Documented by: YISEL Lactulose (Lactulose 20 Gm/30 Ml Solution) 20 gm PO TID [facility] Last Admin: 06/24/21 08:08 Dose: 20 gm Documented by: YISEL Melatonin (Melatonin 3 Mg Tablet) 6 mg PO BEDTIME PRN PRN Reason: Insomnia Senna (Sennosides 8.6 Mg Tablet) 17.2 mg PO BEDTIME PRN PRN Reason: Constipation Sodium Chloride (0.9 % Sodium Chloride Flush 3 Ml Syringe) 3 ml IVFLUSH QSHIFT [facility] Last Admin: 06/24/21 08:09 Dose: 3 ml Documented by: YISEL Temazepam (Temazepam 15 Mg Capsule) 15 mg PO BEDTIME PRN PRN Reason: Insomnia Labs CBC & Chem 7: 06/24/21 04:22 06/24/21 08:43 Labs: Laboratory Results - last 24 hr 06/23/21 06/23/21 06/23/21 12:09 12:09 12:09 MCV MCH MCHC RDW Plt Count MPV Immature Gran % (Auto) Neut % (Auto) Lymph % (Auto) Cotton % (Auto) Eos % (Auto) Baso % (Auto) Lymph # (Auto) Cotton # (Auto) Eos # (Auto) Baso # (Auto) Abs Immat Gran (auto) Absolute Neuts (auto) Absolute Nucleated RBC Nucleated RBC % (auto) PT INR APTT Anion Gap Estim Creat Clear Calc Estimated GFR Random Glucose Calcium Triglycerides Cholesterol LDL Cholesterol, Calc HDL Cholesterol Vitamin B12 1383 H Folate 13.2 Random Cortisol 12.5 Urine Color Urine Appearance Urine pH Ur Specific Stafford Urine Protein Urine Glucose (UA) Urine Ketones Urine Blood Urine Nitrite Ur Leukocyte Esterase Urine RBC Urine WBC Ur Squamous Epith Cells Urine Bacteria Urine Mucus Urine Osmolality Ur Random Sodium T.pallidum Ab (EIA) Nonreactive COVID-19 (RIMMA) COVID-19 Clin Com 06/23/21 06/23/21 06/23/21 17:46 18:23 20:09 MCV MCH MCHC RDW Plt Count MPV Immature Gran % (Auto) Neut % (Auto) Lymph % (Auto) Cotton % (Auto) Eos % (Auto) Baso % (Auto) Lymph # (Auto) Cotton # (Auto) Eos # (Auto) Baso # (Auto) Abs Immat Gran (auto) Absolute Neuts (auto) Absolute Nucleated RBC Nucleated RBC % (auto) PT 20.4 H INR 1.8 H APTT 39.0 H Anion Gap Estim Creat Clear Calc Estimated GFR Random Glucose Calcium Triglycerides Cholesterol LDL Cholesterol, Calc HDL Cholesterol Vitamin B12 Folate Random Cortisol Urine Color ORANGE A Urine Appearance CLEAR Urine pH 6.0 Ur Specific Stafford >= 1.030 H Urine Protein TRACE Urine Glucose (UA) NEG Urine Ketones 5 Urine Blood NEG Urine Nitrite POS H Ur Leukocyte Esterase NEG Urine RBC 1-4 Urine WBC 1-4 Ur Squamous Epith Cells TRACE Urine Bacteria TRACE Urine Mucus TRACE Urine Osmolality Ur Random Sodium T.pallidum Ab (EIA) COVID-19 (RIMMA) Negative COVID-19 Clin Com See Note 06/23/21 06/23/21 06/24/21 20:09 20:09 04:22 MCV 94.9 MCH 32.1 MCHC 33.8 RDW 16.1 H Plt Count 44 L MPV 11.5 Immature Gran % (Auto) 0.5 H Neut % (Auto) 66.0 Lymph % (Auto) 15.9 L Cotton % (Auto) 14.4 H Eos % (Auto) 2.5 Baso % (Auto) 0.7 Lymph # (Auto) 0.7 L Cotton # (Auto) 0.6 Eos # (Auto) 0.1 Baso # (Auto) 0.0 Abs Immat Gran (auto) 0.02 Absolute Neuts (auto) 2.9 Absolute Nucleated RBC 0.000 Nucleated RBC % (auto) 0.0 PT INR APTT Anion Gap Estim Creat Clear Calc Estimated GFR Random Glucose Calcium Triglycerides Cholesterol LDL Cholesterol, Calc HDL Cholesterol Vitamin B12 Folate Random Cortisol Urine Color Urine Appearance Urine pH Ur Specific Stafford Urine Protein Urine Glucose (UA) Urine Ketones Urine Blood Urine Nitrite Ur Leukocyte Esterase Urine RBC Urine WBC Ur Squamous Epith Cells Urine Bacteria Urine Mucus Urine Osmolality 764 Ur Random Sodium 36.0 T.pallidum Ab (EIA) COVID-19 (RIMMA) COVID-19 Dely 06/24/21 06/24/21 06/24/21 04:22 04:22 08:38 MCV MCH MCHC RDW Plt Count MPV Immature Gran % (Auto) Neut % (Auto) Lymph % (Auto) Cotton % (Auto) Eos % (Auto) Baso % (Auto) Lymph # (Auto) Cotton # (Auto) Eos # (Auto) Baso # (Auto) Abs Immat Gran (auto) Absolute Neuts (auto) Absolute Nucleated RBC Nucleated RBC % (auto) PT INR APTT Anion Gap 7 L Estim Creat Clear Calc 103.2 Estimated GFR > 60 Random Glucose 95 Calcium 8.3 L Triglycerides 56 Cancelled Cholesterol 125 Cancelled LDL Cholesterol, Calc 93 Cancelled HDL Cholesterol 21 Cancelled Vitamin B12 Folate Random Cortisol Urine Color Urine Appearance Urine pH Ur Specific Stafford Urine Protein Urine Glucose (UA) Urine Ketones Urine Blood Urine Nitrite Ur Leukocyte Esterase Urine RBC Urine WBC Ur Squamous Epith Cells Urine Bacteria Urine Mucus Urine Osmolality 800 Ur Random Sodium T.pallidum Ab (EIA) COVID-19 (RIMMA) COVID-19 Dely 06/24/21 06/24/21 08:38 08:43 MCV MCH MCHC RDW Plt Count MPV Immature Gran % (Auto) Neut % (Auto) Lymph % (Auto) Cotton % (Auto) Eos % (Auto) Baso % (Auto) Lymph # (Auto) Cotton # (Auto) Eos # (Auto) Baso # (Auto) Abs Immat Gran (auto) Absolute Neuts (auto) Absolute Nucleated RBC Nucleated RBC % (auto) PT INR APTT Anion Gap 7 L Estim Creat Clear Calc 95.5 Estimated GFR > 60 Random Glucose 107 Calcium 8.4 Triglycerides Cholesterol LDL Cholesterol, Calc HDL Cholesterol Vitamin B12 Folate Random Cortisol Urine Color Urine Appearance Urine pH Ur Specific Stafford Urine Protein Urine Glucose (UA) Urine Ketones Urine Blood Urine Nitrite Ur Leukocyte Esterase Urine RBC Urine WBC Ur Squamous Epith Cells Urine Bacteria Urine Mucus Urine Osmolality Ur Random Sodium 38.0 T.pallidum Ab (EIA) COVID-19 (RIMMA) COVID-19 Clin Com Microbiology Microbiology Results: Microbiology 06/23/21 20:09 Urine Culture - Preliminary Urine clean catch - Urine arceo top No growth to date. Assessment and Plan (1) Hyponatremia: Status: Acute (2) Hepatic encephalopathy: Status: Acute Plan 56-year-old male with a past medical history of alcoholic liver cirrhosis, ascites, CHF, depression presented to the hospital today with a chief complaint of falls. Noted to have following Hyponatremia: sodium up to 128 Nephrology consult pending follow BMP Metabolic encephalopathy secondary to liver disease (hepatic encephalopathy) ammonia elevated Increased dose of lactulose Supportive care Recurrent Falls: Mechanical nature. Denies any head strike or loss of consciousness. CT head showed age indeterminate right frontal lobe infarct. Will consult Neurology Will obtain folate B12 and TSH, RPR Fall precautions PT eval Thrombocytopenia: r/t liver cirrhosis Current levels are at his baseline around 56. Denies any active signs of bleeding. Urine nitrites positive: Per report urine pigment is obscuring the results. Patient denies any urinary symptoms. Urine cultures negative no indication for Abx History of liver cirrhosis: Patient on Lasix and Aldactone at home. d/c due to hyponatremia will nee to be resumed upon discharge due to history of ascites History of depression: Continue home escitalopram DVT prophylaxis: SCD boots. Holding pharmacologic agent for now given severe thrombocytopenia Code status: Full code. Confirmed with the patient's Attending: Dr. andino Quality Stroke Does the patient have a stroke diagnosis?: No VTE Prior VTE?: No VTE Risk Level:: Medical - moderate - high VTE Device Contraindication: N/A - Device Ordered VTE Drug Contraindication: Treatment Not Indicated
--- NOTE | 2021-06-24 15:49 | MHC.CM.PN ---
Met with patient in regards to discharge planning. Patient lives with his , ambulates with a walker and had no services prior to coming to the hospital. PCP verified as Dr Murphy. HCP lists Dr Murphy as his agent. This was verified to be correct with patient. Patient received 3 Covid vaccines but doesn't remember which brand. Patient's will transport patient home when medically stable. Continue to monitor for d/c needs.
--- NOTE | 2021-06-24 19:02 | PC.NURSE ---
Assumed care of pt at 1900. Pt resting in bed, in NAD. Attached to rn cardiac. Family member at bedside. Plan to transfer to inpatient bed pending RN report
[2021-06-24 20:00] VITALS: BP 138/66; PULSE 91; RESP 20; TEMP 36.7; O2SAT 100
--- NOTE | 2021-06-24 20:29 | PC.NURSE ---
Report called to taty RN. Pt to floor via wc in stable condition w/ all belongings, attached to portable court monitor
[2021-06-24] MEDS: Melatonin 3 MG TABLET 6 MG PO (21:26)
[2021-06-24 23:04] VITALS: BP 122/60; PULSE 88; RESP 20; TEMP 36.7; O2SAT 99
[2021-06-25] VITALS (7 sets, daily range): BP systolic 102–127; BP diastolic 54–71; PULSE 88–91; RESP 18–20; TEMP 36.7–37.3; O2SAT 96–99
[2021-06-25 08:52] LABS: Hematocrit 26.1 % (42.0-52.0); Hemoglobin 8.7 g/dl (14.0-18.0); Mean Corpuscular HGB Conc 33.3 g/dl (31.0-36.0); Mean Corpuscular Hemoglobin 31.5 pg (27.0-33.0); Mean Corpuscular Volume 94.6 fL (80.0-98.0); Mean Platelet Volume 11.1 fL (9.4-12.4); Red Blood Count 2.76 X10*6/uL (4.60-5.80); Red Cell Distribution Width 15.9 % (11.0-16.0)
[2021-06-25 09:00] LABS: Platelet Count 44 X10*3/uL (160-400)
[2021-06-25 09:06] LABS: Anion Gap 8 (12-20); Blood Urea Nitrogen 12 mg/dL (9-16); Calcium 8.1 mg/dL (8.4-10.2); Carbon Dioxide 21 mmol/L (22-29); Chloride 101 mmol/L (96-108); Creatinine Clr Calc Pharmacy 109.5; Estimated Glomerular Filt Rate > 60; Glucose Random 78 mg/dL (60-115); Potassium 4.2 mmol/L (3.3-5.1); Sodium 126 mmol/L (135-145)
[2021-06-25] MEDS: Escitalopram Oxalate 10 MG TABLET PO (09:12)
[2021-06-25] MEDS: 0.9 % Sodium Chloride Flush 3 ML SYRINGE IVFLUSH ×2 (09:12→20:24)
[2021-06-25] MEDS: Lactulose 20 GM/30 ML SOLUTION PO ×3 (09:12→20:24)
--- NOTE | 2021-06-25 10:35 | CONS_ITS ---
DATE OF SERVICE: 06/24/2021 REASON FOR CONSULTATION: I was called to see this patient to assist in management of hyponatremia. HISTORY OF PRESENT ILLNESS: To summarize, Artemio is a 56-year-old man with a history of alcoholic cirrhosis, ascites, and congestive heart failure, who has been on Lasix and spironolactone. He was brought in because of confusion. There is a history of mild hyponatremia with a serum sodium in the low 130s. At the time of this admission, he had a serum sodium of 130 to 126. This consultation has been requested for management of hyponatremia. PAST MEDICAL HISTORY: Ongoing medical problems include history of long-standing alcohol intake complicated by alcoholic cirrhosis and hepatic encephalopathy. History of CHF. SOCIAL HISTORY: History of alcohol intake in the past. He does not smoke. ALLERGIES: HE IS NOT ALLERGIC TO ANY MEDICATIONS. CURRENT MEDICATIONS: At the time of admission included Lexapro 10 mg daily, Lasix 60 mg, lactulose, spironolactone 100 mg, and temazepam. REVIEW OF SYSTEMS: No headache, nausea, vomiting. Has generalized weakness. No fever. No urinary symptoms. No polyuria or polydipsia. No abdominal pain, diarrhea, or constipation. All other systems were reviewed. PHYSICAL EXAMINATION: GENERAL: Artemio is a middle-aged man who is comfortable, lying flat, not in any distress. NECK: Supple. No JVD. HEENT: Mucosa is dry. LUNGS: Air entry equal. No rales. Few scattered rhonchi. HEART: S1, S2 heard. No gallop or rub. ABDOMEN: Soft, nontender, distended. Bowel sounds heard. NEURO: Alert, awake, and oriented. No asterixis. EXTREMITIES: Trace edema. No rash. No clubbing. VITAL SIGNS: Blood pressure was 130/73, pulse 94. He is afebrile. LABORATORY DATA: Sodium 128, potassium 4.1, BUN 16, creatinine 0.94. Urine osmolality was 800, urine sodium 38. Hemoglobin 8.9, WBC 4.4, platelets 44,000. PROBLEMS: 1. Hyponatremia in the setting of cirrhosis of the liver. 2. Pancytopenia. 3. Cirrhosis. Artemio has chronic hyponatremia. Recently, there is no worsening of his serum sodium. 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 However, he is also on SSRI, which could have precipitated for the worsening of the serum sodium. RECOMMENDATIONS: 1. My recommendation will be to hold the Lasix and spironolactone for the next 24 to 48 hours. Cautiously hydrate him with normal saline at 50 cc/hour x1 L since his urine sodiums are relatively low and I suspect there could be a component of hypoperfusion. Restrict oral free water intake to 1 L per 24 hours to correct the serum sodium. Hold Lexapro until serum sodium improves. 2. Renal function is stable. We will follow him as needed. Fab Shaffer MD BPA/MODL / [id number] MTDD
[2021-06-25] MEDS: 0.9 % Sodium Chloride 1,000 ML 50 ML IVCONT (12:27)
--- NOTE | 2021-06-25 15:14 | P.PNNP_ITS ---
Subjective Subjective Date of Service: 06/25/21 Interval history: seen and examined denies N/V/D/SOB Physical Exam Vital Signs: Vital Signs: Last Vital Signs Temp 98.0 F 06/25/21 15:04 Pulse 90 06/25/21 15:04 Resp 20 06/25/21 15:04 BP 123/71 06/25/21 15:04 Pulse Ox 97 06/25/21 15:04 BMI result Body Mass Index 33.8 Const: General: no acute distress HENMT: Head: Yes normocephalic and Yes atraumatic Neck: Neck: Yes supple Resp: Auscultation: clear to auscultation bilaterally Cardio: Heart sounds: S1 normal heart sound present and S2 normal heart sound present GI: Palpation (GI): Soft to palpation and nontender Extrem: General: No pedal edema Objective Data Labs CBC & Chem 7: 06/25/21 08:28 06/25/21 08:28 Labs: Laboratory Results - last 24 hr 06/25/21 06/25/21 08:28 08:28 WBC 4.0 L RBC 2.76 L Hgb 8.7 L Hct 26.1 L MCV 94.6 MCH 31.5 MCHC 33.3 RDW 15.9 Plt Count 44 L MPV 11.1 Absolute Nucleated RBC 0.000 Nucleated RBC % (auto) 0.0 Sodium 126 L Potassium 4.2 Chloride 101 Carbon Dioxide 21 L Anion Gap 8 L BUN 12 Creatinine 0.82 Estim Creat Clear Calc 109.5 Estimated GFR > 60 Random Glucose 78 Calcium 8.1 L Microbiology Microbiology Results: Microbiology 06/23/21 20:09 Urine clean catch - Urine arceo top Urine Culture - Final Procedures Date of Service Date of Service: 06/25/21 Assessment & Plan Assessment and plan (1) Hyponatremia: Status: Acute (2) Liver cirrhosis: Status: Acute Plan Sna down hypotonic hyponatremia in the setting of liver cirrhosis hepatic physiology elevated Uosm REC restrict free water intake saline trial hold loop diuretics and potassium sparing agents for now (will need to resume in the custodial) follow electrolytes Time Spent With Patient Time: Total time spent is greater than 50% in coordination of care (as documented) at patient's floor/unit and/or counseling patient: Progress Note: Quality Stroke Does the patient have a stroke diagnosis?: No
[2021-06-25] MEDS: Acetaminophen 325 MG TABLET 650 MG PO (15:20)
--- NOTE | 2021-06-25 15:22 | HO.PM.IMPN ---
Subjective Subjective Date of Service: 06/25/21 Interval History: seen and examined this am feeling well, no complaints still a little slow to answer, but answering questions appropriately Review of Systems Review of Systems: Yes all other systems are reviewed and are negative Constitutional Constitutional: Denies chills and Denies fever(s) Cardiovascular Cardiovascular: Denies palpitations and Denies dyspnea Respiratory Respiratory: Denies cough and Denies dyspnea Gastrointestinal Gastrointestinal: Denies nausea and Denies vomiting Endocrine Endocrine: Denies palpitations Physical Exam Vital Signs: Vital Signs: Last Vital Signs Temp 98.0 F 06/25/21 15:04 Pulse 90 06/25/21 15:04 Resp 20 06/25/21 15:04 BP 123/71 06/25/21 15:04 Pulse Ox 97 06/25/21 15:04 BMI result Body Mass Index 33.8 Const: General: cooperative, healthy appearing, comfortable, alert and awake Nutritional Appearance: overweight Resp: Effort & Inspection: normal respiratory effort and able to speak in complete sentences Cardio: Heart sounds: S1 normal heart sound present and S2 normal heart sound present GI: Palpation (GI): Soft to palpation and nontender Neuro: Motor exam (neuro): Asterixis during motor activity present (mild) Objective Data Active Medications Acetaminophen (Acetaminophen 325 Mg Tablet) 650 mg PO Q6H PRN PRN Reason: Pain, Mild (Pain Scale 1-3) Last Admin: 06/25/21 15:20 Dose: 650 mg Documented by: TOÑA Escitalopram Oxalate (Escitalopram Oxalate 10 Mg Tablet) 10 mg PO DAILY [facility] Last Admin: 06/25/21 09:12 Dose: 10 mg Documented by: TOÑA Sodium Chloride (Ns) 1,000 mls @ 50 mls/hr IVCONT .Q20H [facility] Stop: 06/26/21 07:29 Last Admin: 06/25/21 12:27 Dose: 50 mls/hr Documented by: TOÑA Lactulose (Lactulose 20 Gm/30 Ml Solution) 20 gm PO TID [facility] Last Admin: 06/25/21 15:20 Dose: 20 gm Documented by: TOÑA Melatonin (Melatonin 3 Mg Tablet) 6 mg PO BEDTIME PRN PRN Reason: Insomnia Last Admin: 06/24/21 21:26 Dose: 6 mg Documented by: MJ Senna (Sennosides 8.6 Mg Tablet) 17.2 mg PO BEDTIME PRN PRN Reason: Constipation Sodium Chloride (0.9 % Sodium Chloride Flush 3 Ml Syringe) 3 ml IVFLUSH QSHIFT [facility] Last Admin: 06/25/21 15:09 Dose: Not Given Documented by: TOÑA Non-Admin Reason: IV Running Temazepam (Temazepam 15 Mg Capsule) 15 mg PO BEDTIME PRN PRN Reason: Insomnia Labs CBC & Chem 7: 06/25/21 08:28 06/25/21 08:28 Labs: Laboratory Results - last 24 hr 06/25/21 06/25/21 08:28 08:28 MCV 94.6 MCH 31.5 MCHC 33.3 RDW 15.9 Plt Count 44 L MPV 11.1 Absolute Nucleated RBC 0.000 Nucleated RBC % (auto) 0.0 Anion Gap 8 L Estim Creat Clear Calc 109.5 Estimated GFR > 60 Random Glucose 78 Calcium 8.1 L Microbiology Microbiology Results: Microbiology 06/23/21 20:09 Urine Culture - Final Urine clean catch - Urine arceo top Assessment and Plan (1) Liver cirrhosis: Status: Acute (2) Hyponatremia: Status: Acute (3) Hepatic encephalopathy: Status: Acute Plan 56-year-old male with a past medical history of alcoholic liver cirrhosis, ascites, CHF, depression presented to the hospital today with a chief complaint of falls. Noted to have following Hyponatremia: sodium 126 seen by nephrology, rec NS at 50cc hr x 1L and repeat sodium after complete hold diuretics for now (will need to resume eventually due to cirrhosis with ascites) hold SSRI until sodium improves follow BMP Metabolic encephalopathy secondary to liver disease (hepatic encephalopathy) ammonia initially elevated Improving with Increased dose of lactulose Recurrent Falls: Mechanical nature. Denies any head strike or loss of consciousness. Fall precautions seen by PT, recommend FWW and home with services abnormal brain CT CT head showed age indeterminate right frontal lobe infarct no focal deficits noted Neurology consult pending Thrombocytopenia: r/t liver cirrhosis Currently near baseline Urine nitrites positive: Urine cultures negative no indication for Abx History of liver cirrhosis: Patient on Lasix and Aldactone at home. on hold due to hyponatremia seen by GI will nee to be resumed upon discharge due to history of ascites History of depression: Continue home escitalopram DVT prophylaxis: SCD boots. Holding pharmacologic agent for now given severe thrombocytopenia Code status: Full code. Confirmed with the patient's Attending: Dr. andino dispo: home with PT and FWW when medically ready Quality Stroke Does the patient have a stroke diagnosis?: No VTE Prior VTE?: No VTE Risk Level:: Medical - moderate - high VTE Device Contraindication: N/A - Device Ordered VTE Drug Contraindication: Treatment Not Indicated
[2021-06-26 03:30] VITALS: BP 118/56; PULSE 88; RESP 18; TEMP 37.2; O2SAT 97
[2021-06-26 06:46] LABS: Anion Gap 7 (12-20); Blood Urea Nitrogen 13 mg/dL (9-16); Carbon Dioxide 21 mmol/L (22-29); Chloride 102 mmol/L (96-108); Creatinine Clr Calc Pharmacy 110.8; Estimated Glomerular Filt Rate > 60; Glucose Random 94 mg/dL (60-115); Potassium 4.3 mmol/L (3.3-5.1); Sodium 126 mmol/L (135-145)
[2021-06-26 07:43] VITALS: BP 129/59; PULSE 93; RESP 12; TEMP 37.3; O2SAT 98
[2021-06-26] MEDS: Lactulose 20 GM/30 ML SOLUTION PO ×3 (08:52→20:40)
[2021-06-26 11:42] VITALS: BP 106/63; PULSE 88; RESP 12; TEMP 36.9; O2SAT 97
--- NOTE | 2021-06-26 13:30 | PM.PNNEP ---
Subjective Subjective Date of Service: 06/26/21 Interval history: seen and examined feeling well, no complaints Physical Exam Vital Signs: Vital Signs: Last Vital Signs Temp 98.5 F 06/26/21 11:42 Pulse 88 06/26/21 11:42 Resp 12 06/26/21 11:42 BP 106/63 06/26/21 11:42 Pulse Ox 97 06/26/21 11:42 BMI result Body Mass Index 33.8 Const: General: no acute distress HENMT: Head: Yes normocephalic and Yes atraumatic Neck: Neck: Yes supple Resp: Auscultation: clear to auscultation bilaterally Cardio: Heart sounds: S1 normal heart sound present and S2 normal heart sound present GI: Palpation (GI): Soft to palpation and nontender Extrem: General: No pedal edema Objective Data Labs CBC & Chem 7: 06/25/21 08:28 06/26/21 05:51 Labs: Laboratory Results - last 24 hr 06/26/21 05:51 Sodium 126 L Potassium 4.3 Chloride 102 Carbon Dioxide 21 L Anion Gap 7 L BUN 13 Creatinine 0.81 Estim Creat Clear Calc 110.8 Estimated GFR > 60 Random Glucose 94 Calcium 8.0 L Microbiology Microbiology Results: Microbiology 06/23/21 20:09 Urine clean catch - Urine arceo top Urine Culture - Final Procedures Date of Service Date of Service: 06/26/21 Assessment & Plan Assessment and plan (1) Hyponatremia: Status: Acute (2) Liver cirrhosis: Status: Acute Plan Sna stable hypotonic hyponatremia in the setting of liver cirrhosis hepatic physiology elevated Uosm REC reinforce fluid restriction hold loop diuretics and potassium sparing agents for now (will need to resume in the retirement) follow electrolytes Time Spent With Patient Time: Total time spent is greater than 50% in coordination of care (as documented) at patient's floor/unit and/or counseling patient: Progress Note: Quality Stroke Does the patient have a stroke diagnosis?: No
--- NOTE | 2021-06-26 14:26 | HO.PM.IMPN ---
Subjective Subjective Date of Service: 06/26/21 Review of Systems seen and examined this am feeling well today no complaints of pain Physical Exam Vital Signs: Vital Signs: Last Vital Signs Temp 98.5 F 06/26/21 11:42 Pulse 88 06/26/21 11:42 Resp 12 06/26/21 11:42 BP 106/63 06/26/21 11:42 Pulse Ox 97 06/26/21 11:42 BMI result Body Mass Index 33.8 Appearing in no acute distress lung sounds are clear to auscultation heart regular rate rhythm, clear S1, S2 positive bowel sounds, abdomen is soft, nontender neuro patient is alert x3, no focal deficits Objective Data Active Medications Acetaminophen (Acetaminophen 325 Mg Tablet) 650 mg PO Q6H PRN PRN Reason: Pain, Mild (Pain Scale 1-3) Last Admin: 06/25/21 15:20 Dose: 650 mg Documented by: TOÑA Escitalopram Oxalate (Escitalopram Oxalate 10 Mg Tablet) 10 mg PO DAILY [facility] Last Admin: 06/25/21 09:12 Dose: 10 mg Documented by: TOÑA Lactulose (Lactulose 20 Gm/30 Ml Solution) 20 gm PO TID [facility] Last Admin: 06/26/21 08:52 Dose: 20 gm Documented by: BEN Melatonin (Melatonin 3 Mg Tablet) 6 mg PO BEDTIME PRN PRN Reason: Insomnia Last Admin: 06/24/21 21:26 Dose: 6 mg Documented by: MJ Senna (Sennosides 8.6 Mg Tablet) 17.2 mg PO BEDTIME PRN PRN Reason: Constipation Sodium Chloride (0.9 % Sodium Chloride Flush 3 Ml Syringe) 3 ml IVFLUSH QSHIFT [facility] Last Admin: 06/26/21 08:54 Dose: Not Given Documented by: BEN Non-Admin Reason: IV Running Temazepam (Temazepam 15 Mg Capsule) 15 mg PO BEDTIME PRN PRN Reason: Insomnia Labs CBC & Chem 7: 06/25/21 08:28 06/26/21 05:51 Labs: Laboratory Results - last 24 hr 06/26/21 05:51 Anion Gap 7 L Estim Creat Clear Calc 110.8 Estimated GFR > 60 Random Glucose 94 Calcium 8.0 L Microbiology Microbiology Results: Microbiology 06/23/21 20:09 Urine Culture - Final Urine clean catch - Urine arceo top Assessment and Plan (1) Liver cirrhosis: Status: Acute (2) Hyponatremia: Status: Acute (3) Hepatic encephalopathy: Status: Acute Plan 56-year-old male with a past medical history of alcoholic liver cirrhosis, ascites, CHF, depression presented to the hospital today with a chief complaint of falls. Noted to have following Hypotonic Hyponatremia secondary to liver cirrhosis strict fluid restriction sodium 126 hold diuretics for now (will need to resume eventually due to cirrhosis with ascites) hold SSRI until sodium improves follow BMP Metabolic encephalopathy secondary to liver disease (hepatic encephalopathy) ammonia initially elevated Improving with Increased dose of lactulose Recurrent Falls Mechanical nature. Denies any head strike or loss of consciousness. Fall precautions seen by PT with rec for home with services abnormal brain CT CT head showed age indeterminate right frontal lobe infarct no focal deficits noted Neurology consult pending Thrombocytopenia r/t liver cirrhosis Currently near baseline Urine nitrites positive Urine cultures negative no indication for Abx History of liver cirrhosis Patient on Lasix and Aldactone at home. on hold due to hyponatremia seen by GI will nee to be resumed upon discharge due to history of ascites History of depression Continue home escitalopram DVT prophylaxis: SCD boots. Holding pharmacologic agent for now given severe thrombocytopenia Code status: Full code. Confirmed with the patient's Attending: Dr. Espinoza Quality Stroke Does the patient have a stroke diagnosis?: No VTE Prior VTE?: No VTE Risk Level:: Medical - moderate - high VTE Device Contraindication: N/A - Device Ordered VTE Drug Contraindication: Treatment Not Indicated
[2021-06-26 15:09] VITALS: BP 115/57; PULSE 92; RESP 20; TEMP 37.1; O2SAT 97
[2021-06-26] MEDS: 0.9 % Sodium Chloride Flush 3 ML SYRINGE IVFLUSH ×2 (15:33→20:40)
[2021-06-26 19:06] VITALS: BP 118/55; PULSE 95; RESP 20; TEMP 36.7; O2SAT 98
[2021-06-26] MEDS: Melatonin 3 MG TABLET 6 MG PO (20:44)
[2021-06-26 23:07] VITALS: BP 118/68; PULSE 92; RESP 20; TEMP 37.1; O2SAT 98
[2021-06-27 02:46] VITALS: BP 109/58; PULSE 91; RESP 20; TEMP 37.3; O2SAT 97
[2021-06-27 07:33] LABS: Hematocrit 26.6 % (42.0-52.0); Hemoglobin 8.7 g/dl (14.0-18.0); Mean Corpuscular HGB Conc 32.7 g/dl (31.0-36.0); Mean Corpuscular Hemoglobin 31.4 pg (27.0-33.0); Mean Platelet Volume 10.9 fL (9.4-12.4); Platelet Count 41 X10*3/uL (160-400); Red Blood Count 2.77 X10*6/uL (4.60-5.80); Red Cell Distribution Width 15.9 % (11.0-16.0); White Blood Count 4.4 X10*3/uL (4.8-10.8)
[2021-06-27 07:34] VITALS: BP 113/55; PULSE 96; RESP 20; TEMP 36.1; O2SAT 99
[2021-06-27 07:50] LABS: Anion Gap 9 (12-20); Blood Urea Nitrogen 12 mg/dL (9-16); Calcium 8.1 mg/dL (8.4-10.2); Carbon Dioxide 20 mmol/L (22-29); Chloride 103 mmol/L (96-108); Creatinine Clr Calc Pharmacy 124.7; Estimated Glomerular Filt Rate > 60; Glucose Random 82 mg/dL (60-115); Potassium 4.5 mmol/L (3.3-5.1); Sodium 127 mmol/L (135-145)
[2021-06-27] MEDS: 0.9 % Sodium Chloride Flush 3 ML SYRINGE IVFLUSH ×2 (08:15→18:22)
[2021-06-27] MEDS: Lactulose 20 GM/30 ML SOLUTION PO (08:15)
--- NOTE | 2021-06-27 08:59 | HO.PM.IMPN ---
Subjective Subjective Date of Service: 06/27/21 Review of Systems Follow up hyponatremia Feeling better wants to go home sodium still low Physical Exam Vital Signs: Vital Signs: Last Vital Signs Temp 96.9 F 06/27/21 07:34 Pulse 96 06/27/21 07:34 Resp 20 06/27/21 07:34 BP 113/55 L 06/27/21 07:34 Pulse Ox 99 06/27/21 07:34 BMI result Body Mass Index 33.8 Appearing in no acute distress Jaundice, chronic lung sounds are clear to auscultation heart regular rate rhythm, clear S1, S2 positive bowel sounds, abdomen is soft, nontender neuro patient is alert x3, no focal deficits Objective Data Active Medications Acetaminophen (Acetaminophen 325 Mg Tablet) 650 mg PO Q6H PRN PRN Reason: Pain, Mild (Pain Scale 1-3) Last Admin: 06/25/21 15:20 Dose: 650 mg Documented by: TOÑA Escitalopram Oxalate (Escitalopram Oxalate 10 Mg Tablet) 10 mg PO DAILY [facility] Last Admin: 06/25/21 09:12 Dose: 10 mg Documented by: TOÑA Lactulose (Lactulose 20 Gm/30 Ml Solution) 20 gm PO TID [facility] Last Admin: 06/27/21 08:15 Dose: 20 gm Documented by: ROXANNA Melatonin (Melatonin 3 Mg Tablet) 6 mg PO BEDTIME PRN PRN Reason: Insomnia Last Admin: 06/26/21 20:44 Dose: 6 mg Documented by: ARIE Senna (Sennosides 8.6 Mg Tablet) 17.2 mg PO BEDTIME PRN PRN Reason: Constipation Sodium Chloride (0.9 % Sodium Chloride Flush 3 Ml Syringe) 3 ml IVFLUSH QSHIFT [facility] Last Admin: 06/27/21 08:15 Dose: 3 ml Documented by: ROXANNA Temazepam (Temazepam 15 Mg Capsule) 15 mg PO BEDTIME PRN PRN Reason: Insomnia Labs CBC & Chem 7: 06/27/21 06:38 06/27/21 06:38 Labs: Laboratory Results - last 24 hr 06/27/21 06/27/21 06:38 06:38 MCV 96.0 MCH 31.4 MCHC 32.7 RDW 15.9 Plt Count 41 L MPV 10.9 Absolute Nucleated RBC 0.000 Nucleated RBC % (auto) 0.0 Anion Gap 9 L Estim Creat Clear Calc 124.7 Estimated GFR > 60 Random Glucose 82 Calcium 8.1 L Assessment and Plan (1) Liver cirrhosis: Status: Acute (2) Hyponatremia: Status: Acute (3) Hepatic encephalopathy: Status: Acute Plan 56-year-old male with a past medical history of alcoholic liver cirrhosis, ascites, CHF, depression presented to the hospital today with a chief complaint of falls. Noted to have following Hypotonic Hyponatremia secondary to liver cirrhosis strict fluid restriction of 1 liter slowly improving hold diuretics for now (will need to resume eventually due to cirrhosis with ascites) hold SSRI until sodium improves Discussed with Dr. Bailey lauren to dc with sodium of 127, possibly tomorrow. Metabolic encephalopathy secondary to liver disease (hepatic encephalopathy) ammonia still elevated, Increased dose of lactulose to 30 mg TID Recurrent Falls Mechanical nature. Denies any head strike or loss of consciousness. Fall precautions seen by PT with rec for home with services abnormal brain CT CT head showed age indeterminate right frontal lobe infarct no focal deficits noted Neurology consult pending Thrombocytopenia r/t liver cirrhosis Currently near baseline Urine nitrites positive Urine cultures negative no indication for Abx History of liver cirrhosis Patient on Lasix and Aldactone at home. on hold due to hyponatremia seen by GI will need to be resumed upon discharge due to history of ascites History of depression Continue home escitalopram DVT prophylaxis: SCD boots. Holding pharmacologic agent for now given severe thrombocytopenia Code status: Full code. Confirmed with the patient's Attending: Dr. Espinoza Quality Stroke Does the patient have a stroke diagnosis?: No VTE Prior VTE?: No VTE Risk Level:: Medical - moderate - high VTE Device Contraindication: N/A - Device Ordered VTE Drug Contraindication: Treatment Not Indicated
--- NOTE | 2021-06-27 09:56 | P.PNNP_ITS ---
Subjective Subjective Date of Service: 06/27/21 Interval history: seen and examined feeling well, no complaints discussed with medical attending Physical Exam Vital Signs: Vital Signs: Last Vital Signs Temp 96.9 F 06/27/21 07:34 Pulse 96 06/27/21 07:34 Resp 20 06/27/21 07:34 BP 113/55 L 06/27/21 07:34 Pulse Ox 99 06/27/21 07:34 BMI result Body Mass Index 33.8 Const: General: no acute distress HENMT: Head: Yes normocephalic and Yes atraumatic Neck: Neck: Yes supple Resp: Auscultation: clear to auscultation bilaterally Cardio: Heart sounds: S1 normal heart sound present and S2 normal heart sound present GI: Palpation (GI): Soft to palpation and nontender Extrem: General: No pedal edema Objective Data Labs CBC & Chem 7: 06/27/21 06:38 06/27/21 06:38 Labs: Laboratory Results - last 24 hr 06/27/21 06/27/21 06:38 06:38 WBC 4.4 L RBC 2.77 L Hgb 8.7 L Hct 26.6 L MCV 96.0 MCH 31.4 MCHC 32.7 RDW 15.9 Plt Count 41 L MPV 10.9 Absolute Nucleated RBC 0.000 Nucleated RBC % (auto) 0.0 Sodium 127 L Potassium 4.5 Chloride 103 Carbon Dioxide 20 L Anion Gap 9 L BUN 12 Creatinine 0.72 Estim Creat Clear Calc 124.7 Estimated GFR > 60 Random Glucose 82 Calcium 8.1 L Microbiology Microbiology Results: Microbiology 06/23/21 20:09 Urine clean catch - Urine arceo top Urine Culture - Final Procedures Date of Service Date of Service: 06/27/21 Assessment & Plan Assessment and plan (1) Hyponatremia: Status: Acute (2) Liver cirrhosis: Status: Acute Plan Sna marginally better hypotonic hyponatremia in the setting of liver cirrhosis hepatic physiology elevated Uosm REC continue fluid restriction hold loop diuretics and potassium sparing agents for now (will need to 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
[2021-06-27 10:39] LABS: Ammonia 75 umol/L (13-55)
--- NOTE | 2021-06-27 10:54 | PM.NEUROCN ---
History of Present Illness Data of Consult Service Date: 06/27/21 Primary Care Provider: Miroslava Murphy MD [facility] Reason for consult: Brain lesion 56 years old man who was admitted hospital with lethargy and confusion with underlying history of alcoholic liver disease. A CT of brain was done and the finding prompted this consultation. There was no history of any seizure disorder or any focal weakness Review of Systems Review of Systems: No recent cold or flu-like illness or trauma. [facility] Past Medical History Medical History CHF (congestive heart failure) Hepatic cirrhosis Social History Social History Household Members: Spouse Housing: Apartment Do you presently have visiting nurse or other home services: Yes (plan consultant) Alcohol intake: never Patient Tobacco Use Status: Never used Tobacco e-Cigarette/Vaping Use: Never Used Use of substances other than those prescribed or required for medical reasons: No Currently Displaying Signs/Symptoms of Drug Intoxication Withdrawal: No Have you been hit, kicked, punched, or otherwise hurt by someone within the past year? If so, by whom?: No Do you feel safe in your current relationship?: Yes Is there a partner from a previous relationship who is making you feel unsafe now?: No Are you made to feel afraid or neglected: No Advance Directives: Yes Advance Directives on File: Yes Advance Directives Date on File: 06/24/21 Do you have thoughts of harming others: None Do you have a plan to hurt others: No Plan Recently lost weight without trying: No Nutrition Risks: No Nutritional Risk Poor oral hygiene: No service: No Current occupational status: disabled Meds Allergies Allergy/AdvReac Type Severity Reaction Status Date / Time seafood Allergy Unknown Verified 06/23/20 18:40 Active Medications: Current Medications Acetaminophen (Acetaminophen 325 Mg Tablet) 650 mg PO Q6H PRN PRN Reason: Pain, Mild (Pain Scale 1-3) Last Admin: 06/25/21 15:20 Dose: 650 mg Documented by: Escitalopram Oxalate (Escitalopram Oxalate 10 Mg Tablet) 10 mg PO DAILY [facility] Last Admin: 06/25/21 09:12 Dose: 10 mg Documented by: Lactulose (Lactulose 20 Gm/30 Ml Solution) 20 gm PO TID [facility] Last Admin: 06/27/21 08:15 Dose: 20 gm Documented by: Melatonin (Melatonin 3 Mg Tablet) 6 mg PO BEDTIME PRN PRN Reason: Insomnia Last Admin: 06/26/21 20:44 Dose: 6 mg Documented by: Senna (Sennosides 8.6 Mg Tablet) 17.2 mg PO BEDTIME PRN PRN Reason: Constipation Sodium Chloride (0.9 % Sodium Chloride Flush 3 Ml Syringe) 3 ml IVFLUSH QSHIFT [facility] Last Admin: 06/27/21 08:15 Dose: 3 ml Documented by: Temazepam (Temazepam 15 Mg Capsule) 15 mg PO BEDTIME PRN PRN Reason: Insomnia Home Medications Medication Instructions Recorded Confirmed Last Taken Type escitalopram oxalate 10 mg tablet 1 tab PO DAILY 06/23/21 06/23/21 06/22/21 History furosemide 20 mg tablet 1 tab PO DAILY 06/23/21 06/23/21 06/22/21 History furosemide 40 mg tablet 1 tab PO DAILY 06/23/21 06/23/21 06/22/21 History lactulose 10 gram/15 mL oral 15 ml PO DAILY 06/23/21 06/23/21 06/22/21 History solution (Constulose) spironolactone 100 mg tablet 1 tab PO TIDWM 06/23/21 06/23/21 06/22/21 History temazepam 15 mg capsule 1 cap PO BEDTIME 06/23/21 06/23/21 06/22/21 History Physical Exam Vital Signs: Vital Signs: Last Vital Signs Temp 96.9 F 06/27/21 07:34 Pulse 96 06/27/21 07:34 Resp 20 06/27/21 07:34 BP 113/55 L 06/27/21 07:34 Pulse Ox 99 06/27/21 07:34 BMI result Body Mass Index 33.8 Neuro: Other: He was alert and awake with normal spontaneity of speech fluency comprehension and affect. Face was symmetrical. There was no pronator drift. There was no asterisks. There was no tremor. Deep tendon reflexes are absent with flexor plantars. There was no neglect. Results Labs CBC & Chem 7: 06/27/21 06:38 06/27/21 06:38 Labs: Short CBC 06/27/21 Range/Units 06:38 WBC 4.4 L (4.8-10.8) X10*3/uL Hgb 8.7 L (14.0-18.0) g/dl Hct 26.6 L (42.0-52.0) % Plt Count 41 L (160-400) X10*3/uL BMP 06/27/21 06:38 Sodium 127 L Potassium 4.5 Chloride 103 Carbon Dioxide 20 L BUN 12 Creatinine 0.72 Calcium 8.[address] revealed a small hypodense lesion in right frontal deep white matter. Microbiology Microbiology Results: Microbiology 06/23/21 20:09 Urine clean catch - Urine arceo top Urine Culture - Final Assessment and Plan (1) Brain lesion: Status: Acute 56 years old man with underlying history of cirrhosis of liver came to hospital probably related to that issue. A noncontrast head CT revealed a small right frontal deep white matter hypodense signal abnormality, probably a chronic ischemic infarction. There was no sign of any acute neurological is a syndrome related to this lesion. The lesion did not look like a tumor or an abscess. Mainstay of management is treatment of hepatic disease. Procedures Date of Service Date of Service: 06/27/21
[2021-06-27 11:45] VITALS: BP 127/70; PULSE 95; RESP 20; TEMP 37.1; O2SAT 98
[2021-06-27] MEDS: Lactulose 20 GM/30 ML SOLUTION 30 GM PO ×3 (13:39→20:03)
[2021-06-27 15:46] VITALS: BP 119/61; PULSE 90; RESP 16; TEMP 36.8; O2SAT 98
[2021-06-27 19:13] VITALS: BP 118/63; PULSE 96; RESP 17; TEMP 37.1; O2SAT 96
[2021-06-27 23:35] VITALS: BP 132/66; PULSE 89; RESP 18; TEMP 36.8; O2SAT 100
[2021-06-28] MEDS: Famotidine/PF 20 MG/2 ML VIAL IVPUSH (00:36)
[2021-06-28] MEDS: 0.9 % Sodium Chloride Flush 3 ML SYRINGE IVFLUSH ×2 (00:36→08:27)
[2021-06-28 03:51] VITALS: BP 107/60; PULSE 89; RESP 18; TEMP 38.1; O2SAT 97
[2021-06-28 07:23] LABS: Glucose, Whole Blood 69 mg/dL (60-115)
[2021-06-28 07:50] LABS: Anion Gap 7 (12-20); Blood Urea Nitrogen 12 mg/dL (9-16); Calcium 8.1 mg/dL (8.4-10.2); Carbon Dioxide 19 mmol/L (22-29); Chloride 104 mmol/L (96-108); Creatinine Clr Calc Pharmacy 121.3; Estimated Glomerular Filt Rate > 60; Glucose Random 77 mg/dL (60-115); Potassium 4.3 mmol/L (3.3-5.1); Sodium 126 mmol/L (135-145)
[2021-06-28 08:00] VITALS: BP 104/56; PULSE 88; RESP 12; TEMP 37.4; O2SAT 98
[2021-06-28] MEDS: Lactulose 20 GM/30 ML SOLUTION 30 GM PO (08:27)
[2021-06-28 09:03] LABS: Ammonia 47 umol/L (13-55)
[2021-06-28 09:07] LABS: Ammonia 49 umol/L (13-55)
[2021-06-28 09:17] LABS: Anion Gap 7 (12-20); Blood Urea Nitrogen 12 mg/dL (9-16); Calcium 8.3 mg/dL (8.4-10.2); Carbon Dioxide 22 mmol/L (22-29); Chloride 104 mmol/L (96-108); Creatinine Clr Calc Pharmacy 118.1; Estimated Glomerular Filt Rate > 60; Glucose Random 73 mg/dL (60-115); Potassium 4.5 mmol/L (3.3-5.1); Sodium 128 mmol/L (135-145)
--- NOTE | 2021-06-28 10:24 | PM.PNNEP ---
Subjective Subjective Date of Service: 06/28/21 Interval history: seen and examined feeling well, no complaints Physical Exam Vital Signs: Vital Signs: Last Vital Signs Temp 99.4 F 06/28/21 08:00 Pulse 88 06/28/21 08:00 Resp 12 06/28/21 08:00 BP 104/56 L 06/28/21 08:00 Pulse Ox 98 06/28/21 08:00 BMI result Body Mass Index 33.8 Const: General: no acute distress HENMT: Head: Yes normocephalic and Yes atraumatic Neck: Neck: Yes supple Resp: Auscultation: clear to auscultation bilaterally Cardio: Heart sounds: S1 normal heart sound present and S2 normal heart sound present GI: Palpation (GI): Soft to palpation and nontender Extrem: General: No pedal edema Objective Data Labs CBC & Chem 7: 06/27/21 06:38 06/28/21 08:20 Labs: Laboratory Results - last 24 hr 06/27/21 06/28/21 06/28/21 09:38 07:10 07:19 Sodium 126 L Potassium 4.3 Chloride 104 Carbon Dioxide 19 L Anion Gap 7 L BUN 12 Creatinine 0.74 Estim Creat Clear Calc 121.3 Estimated GFR > 60 POC Glucose 69 Random Glucose 77 Calcium 8.1 L Ammonia 75 H 06/28/21 06/28/21 06/28/21 08:20 08:20 08:20 Sodium 128 L Potassium 4.5 Chloride 104 Carbon Dioxide 22 Anion Gap 7 L BUN 12 Creatinine 0.76 Estim Creat Clear Calc 118.1 Estimated GFR > 60 POC Glucose Random Glucose 73 Calcium 8.3 L Ammonia 49 47 Microbiology Microbiology Results: Microbiology 06/23/21 20:09 Urine clean catch - Urine arceo top Urine Culture - Final Procedures Date of Service Date of Service: 06/28/21 Assessment & Plan Assessment and plan (1) Hyponatremia: Status: Acute (2) Liver cirrhosis: Status: Acute Plan Sna ow improving hypotonic hyponatremia in the setting of liver cirrhosis hepatic physiology elevated Uosm REC continue fluid restriction hold loop diuretics and potassium sparing agents for now (will need to resume in the senior care) follow electrolytes Time Spent With Patient Time: Total time spent is greater than 50% in coordination of care (as documented) at patient's floor/unit and/or counseling patient: Progress Note: Quality Stroke Does the patient have a stroke diagnosis?: No
[2021-06-28 12:00] VITALS: BP 114/60; PULSE 91; RESP 20; TEMP 37.3; O2SAT 98
--- NOTE | 2021-06-28 13:07 | P.DS_ITS ---
DS: Providers Provider Date of Service: 06/28/21 Date of admission: 06/23/21 19:41 Primary care physician: Miroslava Murphy MD Consults: 06/23/21 19:41 Consult to Gastroenterology Routine Consulting Provider: Jon Barrow Reason for consultation: Hepatic encephalopathy Consult to Nephrology Routine Consulting Provider: Fab Shaffer Reason for consultation: Hyponatremia 06/23/21 21:43 Consult to Neurology Routine Consulting Provider: [facility] Reason for consultation: rec falls; Right frontal lobe infarct. Attending physician on discharge: [facility] Discharging clinician: Kayla Wiley DS: Diagnosis Discharge Diagnosis (1) Hyponatremia: Status: Acute (2) Liver cirrhosis: Status: Acute DS: Summary Hospital Course Hospital Course: HP as per admitting provider 56-year-old male with a past medical history of alcoholic liver cirrhosis, ascites, CHF, depression presented to the hospital today with a chief complaint of falls.?Most of the history obtained from the patient's over the phone.? Patient is alert and awake, generally slow in responding; but oriented times 2-3.?Per patient patient has been having multiple falls over the past 1 week, fell about 10 times; denies any head strike or loss of consciousness.?Patient denies any headaches neck pain back pain hip pain or joint pains.?Denies any chest pain, palpitations, dizziness, lightheadedness. Denies any fever chills cough.? Denies any GI symptoms.?Given falls this spoke to the patient's primary care who did the routine labs and noted to have elevated ammonia levels and low sodium levels and also due to the ER for further evaluation.?Review of all other systems is negative except mentioned above, ER course: Per ER team patient noted to have sodium levels of 129, ammonia levels elevated to 72; admitted to the hospital for further management, concern for hepatic encephalopathy Hypotonic Hyponatremia secondary to liver cirrhosis, strict fluid restriction of 1 liter, up to 128, ok to go as per nephrology. Advised to stay on fluid restriction to avoid worsening hyponatremia Metabolic encephalopathy secondary to liver disease (hepatic encephalopathy). Treated with Lactulose 30mg TID. Ammonia down to 47. May resume home dose of Lactulose. Recurrent Falls. Mechanical nature.? Denies any head strike or loss of consciousness.?Seen by PT with rec for home with services Abnormal brain CT, showing age indeterminate right frontal lobe infarct, no focal deficits noted. MRI showed no acute infarction. History of liver cirrhosis. Patient on Lasix and Aldactone at home, hold until 07/02, check BMP and if still low continue to hold meds and follow up with PCP. Time Spent with Patient Time attestation: Total time spent providing and/or coordinating discharge services: Discharge coordination time: Greater than 30 minutes Quality: Stroke Does the patient have a stroke diagnosis?: No Physical Exam Vital Signs: Vital Signs: Last Vital Signs Temp 99.4 F 06/28/21 08:00 Pulse 88 06/28/21 08:00 Resp 12 06/28/21 08:00 BP 104/56 L 06/28/21 08:00 Pulse Ox 98 06/28/21 08:00 BMI result Body Mass Index 33.8 Appearing in no acute distress Chronic jaundice head is normocephalic atraumatic eyes pupils are PERRLA sclera is anicteric mouth throat mucous membranes are intact and moist neck is supple no lymphadenopathy, no JVD noted lung sounds are clear to auscultation heart regular rate rhythm, clear S1, S2 positive bowel sounds, abdomen is soft, nontender neuro patient is alert x3, no focal deficits DS: Data Data Completed and Pending Labs on day of discharge: Laboratory Results - last 24 hr 06/28/21 06/28/21 06/28/21 07:10 07:19 08:20 Sodium 126 L Potassium 4.3 Chloride 104 Carbon Dioxide 19 L Anion Gap 7 L BUN 12 Creatinine 0.74 Estim Creat Clear Calc 121.3 Estimated GFR > 60 POC Glucose 69 Random Glucose 77 Calcium 8.1 L Ammonia 49 06/28/21 06/28/21 08:20 08:20 Sodium 128 L Potassium 4.5 Chloride 104 Carbon Dioxide 22 Anion Gap 7 L BUN 12 Creatinine 0.76 Estim Creat Clear Calc 118.1 Estimated GFR > 60 POC Glucose Random Glucose 73 Calcium 8.3 L Ammonia 47 Discharge Plan Discharge Anticipated Discharge Date/Time: 06/28/21 12:55 Patient Disposition: Home, Self-Care Discharge Diagnosis: Hypotonic Hyponatremia secondary to liver cirrhosis Metabolic encephalopathy secondary to liver disease (hepatic encephalopathy) Recurrent Falls Referrals: Miroslava Murphy MD [Primary Care Provider] - 1 Week Discharge Medications: Continued temazepam 15 mg capsule 1 cap PO BEDTIME 0RF escitalopram oxalate 10 mg tablet 1 tab PO DAILY 0RF lactulose [Constulose] 10 gram/15 mL solution 15 ml PO DAILY 0RF Held furosemide 40 mg tablet 1 tab PO DAILY 0RF Hold Instructions: Resume on 07/02/21. If sodium is still below 130 continue to hold and follow up with primary care provider prior to restarting Rx Instructions: takes with furosemide 20 mg spironolactone 100 mg tablet 1 tab PO TIDWM 0RF Hold Instructions: Resume on 07/02/21. furosemide 20 mg tablet 1 tab PO DAILY 0RF Hold Instructions: Resume on 07/02/21. Resume on 07/02/21. If sodium is still below 130 continue to hold and follow up with primary care provider prior to restarting Discharge Orders: Discharge Order (Routine); Ordered 06/28/21 Ordered By: Kayla Wiley Diet: advance to usual diet Activity on Discharge: As tolerated Stand Alone Forms: Patient Portal Discharge page Other Ambulatory Orders: Ammonia (Routine) Timeframe: 20210702 Facility: [facility] - Location: Laboratory Ordered By: Kayla Wiley Basic Metabolic Panel (Routine) Timeframe: 20210702 Facility: [facility] - Location: Laboratory Ordered By: Kayla Wiley Care Plan Goals: follow-up with labs as scheduled continue 1 L of fluid restriction Health Concerns: Hypotonic Hyponatremia secondary to liver cirrhosis Metabolic encephalopathy secondary to liver disease (hepatic encephalopathy) Recurrent Falls Plan of Treatment: follow-up with primary care provider as needed Assessment: see discharge summary
--- NOTE | 2021-06-28 13:10 | MHC.CM.PN ---
pt dcd home no skilled services ordered by
== END 2021-06-28 15:00 | disposition home or self-care (01) | DRG 280 ==
LOC: HO.ED 17:17 → HO.EDOVER 20:03 → HO.IMC 06-24 18:26
PROVIDERS: Physician Assistant Medical; Admitting Provider Hospitalist; Emergency Provider Internal Medicine; PCP Student in an Organized Health Care Education/Training Program; Visit Provider Nurse Practitioner Acute Care
DX: K70.31 Alcoholic cirrhosis of liver with ascites (principal); G92.8 Other toxic encephalopathy; K72.90 Hepatic failure, unspecified without coma; D61.818 Other pancytopenia; E87.1 Hypo-osmolality and hyponatremia; I50.9 Heart failure, unspecified; F32.A Depression, unspecified; R29.6 Repeated falls; Z91.14 Patient's other noncompliance with medication regimen; Z91.81 History of falling; Z86.73 Personal history of transient ischemic attack (TIA), and cerebral infarction without residual deficits; Z20.822 Contact with and (suspected) exposure to COVID-19; Z79.899 Other long term (current) drug therapy
CPT/HCPCS: 36415; 70450; 70551; 72131; 76705; 80048; 80061; 81001; 82140; 82533; 82607; 82746; 82947; 83935; 84300; 85025; 85027; 85610; 85730; 86780; 87086; 87635; 97162; 99284; 99285

== ENCOUNTER 2021-07-02 11:22 | Outpatient (REF) | payer MEDICAID, SELFPAY ==
[2021-07-02 11:48] LABS: Ammonia 60 umol/L (13-55)
[2021-07-02 12:09] LABS: Anion Gap 9 (12-20); Blood Urea Nitrogen 12 mg/dL (9-16); Calcium 8.1 mg/dL (8.4-10.2); Carbon Dioxide 21 mmol/L (22-29); Chloride 101 mmol/L (96-108); Estimated Glomerular Filt Rate > 60; Glucose Random 95 mg/dL (60-115); Potassium 4.4 mmol/L (3.3-5.1); Sodium 127 mmol/L (135-145)
== END 2021-07-02 11:23 | disposition home or self-care (01) ==
LOC: HO.LAB 11:22
PROVIDERS: Absent Provider Student in an Organized Health Care Education/Training Program; PCP Student in an Organized Health Care Education/Training Program; Visit Provider Nurse Practitioner Acute Care
DX: E87.1 Hypo-osmolality and hyponatremia (principal); K72.90 Hepatic failure, unspecified without coma
CPT/HCPCS: 36415; 80048; 82140

== ENCOUNTER 2021-07-05 16:24 | Outpatient (REF) | payer MEDICAID, SELFPAY ==
[2021-07-05 18:10] LABS: Anion Gap 9 (12-20); Blood Urea Nitrogen 17 mg/dL (9-16); Calcium 8.2 mg/dL (8.4-10.2); Carbon Dioxide 22 mmol/L (22-29); Chloride 102 mmol/L (96-108); Estimated Glomerular Filt Rate > 60; Potassium 4.1 mmol/L (3.3-5.1); Sodium 129 mmol/L (135-145)
== END 2021-07-05 16:25 | disposition home or self-care (01) ==
LOC: HO.LAB 16:24
PROVIDERS: PCP Student in an Organized Health Care Education/Training Program; Visit Provider Internal Medicine Hypertension Specialist
DX: E87.1 Hypo-osmolality and hyponatremia (principal)
CPT/HCPCS: 36415; 80051; 82310; 82565; 84520

== ENCOUNTER 2021-07-23 11:06 | Outpatient (REF) | payer MEDICAID, SELFPAY ==
[2021-07-23 11:47] LABS: Ammonia 47 umol/L (13-55)
== END 2021-07-23 11:07 | disposition home or self-care (01) ==
LOC: HO.LAB 11:06
PROVIDERS: PCP Student in an Organized Health Care Education/Training Program; Visit Provider Student in an Organized Health Care Education/Training Program
DX: K74.60 Unspecified cirrhosis of liver (principal)
CPT/HCPCS: 36415; 82140

== ENCOUNTER 2021-07-25 19:11 | Inpatient (IN) | payer MEDICAID, SELFPAY ==
--- NOTE | ~2021-07-25 | US_ITS ---
EXAMINATION: ULTRASOUND-GUIDED PARACENTESIS. CLINICAL INFORMATION: Ascites. Pain. Evaluate for SBP COMPARISON: CT abdomen and pelvis 07/26/2021. TECHNIQUE: Following explaining ultrasound-guided therapeutic and diagnostic paracentesis procedure, benefits and risk, a written consent was obtained. Patient was placed supine on ultrasound stretcher and placed in the ultrasound imaging was obtained. An optimal site was selected along the left lower quadrant and marked. The marked site was cleaned and draped in usual sterile manner. 1% lidocaine was injected at puncture site. Through a small skin incision a 5 [place] [employer] catheter was advanced into the peritoneal space. After observing fluid return, catheter was connected to vacuum bottle via connecting cannula. After obtaining all fluid and observing no more fluid remaining, catheter was withdrawn and complete hemostasis achieved at puncture site. Sterile Band-Aid applied postprocedure. Patient tolerated procedure extremely well. FINDINGS: On preliminary ultrasound imaging there is moderate fluid seen in both flanks slightly prominent on the left side in contrary to the CT findings where the fluid is more on the right side. Approximately 7.8 L of cloudy yellowish-pink ascites fluid was removed from the left lower quadrant. Part of this fluid was sent to lab as per referring physician's orders. US/US paracentesis abd w/image IMPRESSION: Successful diagnostic and therapeutic ultrasound-guided paracentesis performed.
--- NOTE | ~2021-07-25 | CT_ITS ---
EXAMINATION: CT ABDOMEN AND PELVIS WITHOUT CONTRAST CLINICAL INFORMATION: Abdominal discomfort. Distention. History of cirrhosis. COMPARISON: None TECHNIQUE: Multidetector volumetric imaging was performed from the superior aspect of the liver through the pubic symphysis. Sagittal and coronal reformatted images were obtained on the technologist's workstation. This CT examination was performed using dose optimization techniques as appropriate, variously including the following: *Automated exposure control *Adjustment of mA and/or kV according to patient size (this includes techniques or standardized protocols for targeted exams where dose is matched to indication/reason for exam; i.e. extremities or head) *Use of iterative reconstruction technique DLP: 926 mGy-cm FINDINGS: LUNG BASES: The visualized lung bases are unremarkable. LIVER, GALLBLADDER, AND BILIARY TREE: Shrunken liver with cirrhotic morphology. No focal liver lesion on this noncontrast study. No biliary ductal dilatation. Stone in the gallbladder neck. Limited evaluation of the gallbladder wall. There is moderate to large volume ascites. PANCREAS: Unremarkable. SPLEEN: The spleen is enlarged measuring 15 cm in CC dimension. No focal splenic lesion. ADRENAL GLANDS: Unremarkable. KIDNEYS AND URETERS: The kidneys are normal in size, shape, and attenuation. No hydronephrosis or hydroureter. Bilateral renal calculi noted. At the right midpole there is a 0.2 cm calculus which is 8 cm from the posterior axillary line. At the left upper pole there is a 0.2 cm calculus which is 11 cm from the posterior axillary line. BLADDER: Unremarkable. GASTROINTESTINAL TRACT: Small hiatal hernia. Fluid is seen in the lower thorax surrounding the esophagus. Decompressed stomach. Normal caliber small bowel. No obstruction. No colonic wall thickening. No free air. ABDOMINAL WALL: Fat and fluid-containing umbilical hernia. Diffuse anasarca. Small fat-containing left inguinal hernia. LYMPH NODES: Normal. VASCULAR: Normal caliber aorta. PELVIC VISCERA: The prostate and seminal vesicles are unremarkable. OSSEOUS STRUCTURES: No acute or suspicious osseous abnormality. CT/CT abdomen pelvis wo con IMPRESSION: Cirrhotic liver with moderate to large volume ascites. Splenomegaly. Cholelithiasis. Evaluation for cholecystitis is limited. Fleischner guidelines were followed.
--- NOTE | ~2021-07-25 | US_ITS ---
EXAMINATION: US ABDOMEN COMPLETE CLINICAL INFORMATION: Review of portal system.. COMPARISON: None TECHNIQUE: Real-time imaging of the abdominal viscera. FINDINGS: PANCREAS: Limited views due to overlying bowel gas. Partially visualized body of the pancreas unremarkable. ABDOMINAL AORTA: The abdominal aorta is not visualized.. INFERIOR VENA CAVA: Partial visualization of IVC proximal segment is normal. LIVER: The liver is small in size. The liver contour is normal. Parenchymal echogenicity is increased No focal hepatic lesion. There is no intrahepatic biliary duct dilatation seen. There is mild ascites seen. GALLBLADDER: There are small echogenic stones seen in the gallbladder... The largest echogenic stone measures 1.4 x 0.8 cm. The gallbladder wall is thickened measuring 0.5 cm. COMMON BILE DUCT: Normal in caliber measuring 0.7 cm in diameter. RIGHT KIDNEY: Normal. No hydronephrosis. No renal calculi or focal parenchymal lesions. The kidney measures 12.3 cm in maximum dimension. LEFT KIDNEY: Normal. No hydronephrosis. No renal calculi or focal parenchymal lesions. The kidney measures 12.0 cm in maximum dimension. SPLEEN: Normal. The spleen measures 16.0 cm in maximum dimension. FREE FLUID: None. US/US duplex arterial venous comp IMPRESSION: Gallstones with mildly thickened gallbladder wall measuring 0.5 cm. Hepatic steatosis with small liver size. Diffuse ascites. The about composite findings are suspicious for cirrhosis Mild splenomegaly
--- NOTE | ~2021-07-25 | US_ITS ---
EXAMINATION: US ABDOMEN COMPLETE CLINICAL INFORMATION: Review of portal system.. COMPARISON: None TECHNIQUE: Real-time imaging of the abdominal viscera. FINDINGS: PANCREAS: Limited views due to overlying bowel gas. Partially visualized body of the pancreas unremarkable. ABDOMINAL AORTA: The abdominal aorta is not visualized.. INFERIOR VENA CAVA: Partial visualization of IVC proximal segment is normal. LIVER: The liver is small in size. The liver contour is normal. Parenchymal echogenicity is increased No focal hepatic lesion. There is no intrahepatic biliary duct dilatation seen. There is mild ascites seen. GALLBLADDER: There are small echogenic stones seen in the gallbladder... The largest echogenic stone measures 1.4 x 0.8 cm. The gallbladder wall is thickened measuring 0.5 cm. COMMON BILE DUCT: Normal in caliber measuring 0.7 cm in diameter. RIGHT KIDNEY: Normal. No hydronephrosis. No renal calculi or focal parenchymal lesions. The kidney measures 12.3 cm in maximum dimension. LEFT KIDNEY: Normal. No hydronephrosis. No renal calculi or focal parenchymal lesions. The kidney measures 12.0 cm in maximum dimension. SPLEEN: Normal. The spleen measures 16.0 cm in maximum dimension. FREE FLUID: None. US/US abdomen complete IMPRESSION: Gallstones with mildly thickened gallbladder wall measuring 0.5 cm. Hepatic steatosis with small liver size. Diffuse ascites. The about composite findings are suspicious for cirrhosis Mild splenomegaly
[2021-07-25 20:15] VITALS: BP 121/54; PULSE 86; RESP 16; TEMP 36.7; O2SAT 100; BMI 41.8
[2021-07-25 20:40] LABS: MANUAL DIFF FLAG NO
[2021-07-25 20:43] LABS: Basophils Percent Auto 0.8 % (0-2); Eosinophils Absolute Auto 0.1 X10*3/uL (0.0-0.4); Eosinophils Percent Auto 2.5 % (0-4); Hematocrit 25.9 % (42.0-52.0); Hemoglobin 8.4 g/dl (14.0-18.0); Imm Gran Abs Auto 0.02 X10*3/uL (0.00-0.03); Imm Gran Pct Auto 0.4 % (0.0-0.4); Lymphocytes Absolute Auto 0.6 X10*3/uL (1.2-4.9); Lymphocytes Percent Auto 12.3 % (20-40); Mean Corpuscular HGB Conc 32.4 g/dl (31.0-36.0); Mean Corpuscular Hemoglobin 31.9 pg (27.0-33.0); Mean Corpuscular Volume 98.5 fL (80.0-98.0); Mean Platelet Volume 10.2 fL (9.4-12.4); Monocytes Absolute Auto 0.7 X10*3/uL (0.1-1.2); Monocytes Percent Auto 14.4 % (2-11); Neutrophils Absolute Auto 3.6 x10*3/uL (2.0-8.3); Neutrophils Percent Auto 69.6 % (45-73); Red Blood Count 2.63 X10*6/uL (4.60-5.80); Red Cell Distribution Width 16.8 % (11.0-16.0); White Blood Count 5.1 X10*3/uL (4.8-10.8)
[2021-07-25 20:51] LABS: Ammonia 63 umol/L (13-55)
[2021-07-25 20:56] LABS: Alanine Aminotransferase 27 U/L (0-40); Alkaline Phosphatase 139 U/L (39-117); Anion Gap 10 (12-20); Aspartate Amino Transferase 41 U/L (5-37); Bilirubin Direct 1.6 mg/dL (0.0-0.5); Bilirubin Total 4.1 mg/dL (0.0-1.0); Blood Urea Nitrogen 16 mg/dL (9-16); Calcium 8.6 mg/dL (8.4-10.2); Carbon Dioxide 24 mmol/L (22-29); Chloride 99 mmol/L (96-108); Creatinine Clr Calc Pharmacy 115.6; Estimated Glomerular Filt Rate > 60; Glucose Random 96 mg/dL (60-115); Potassium 4.7 mmol/L (3.3-5.1); Sodium 128 mmol/L (135-145)
[2021-07-25 21:03] LABS: Platelet Count 65 X10*3/uL (160-400)
[2021-07-25 21:07] LABS: INTERNATIONAL NORM RATIO 1.8 (0.9-1.1); Prothrombin Time 20.8 SEC (9.9-13.0)
[2021-07-25 23:38] LABS: B Type Natriuretic Peptide 45 pg/mL (<100)
[2021-07-26 03:06] VITALS: BP 127/73; PULSE 91; RESP 18; TEMP 36.9; O2SAT 100
--- NOTE | 2021-07-26 04:32 | PC.NURSE ---
pt being seen by provider with agricultural aircraft pilot.
--- NOTE | 2021-07-26 04:32 | PC.NURSE ---
pt abd large distended, weeping, lower leg edema and weeping.
--- NOTE | 2021-07-26 04:40 | ED.GENADULT ---
HPI - General Adult General Chief complaint: Abdominal Pain Stated complaint: belly button infected Time Seen by Provider: 07/25/21 21:13 Source: patient, family () and motor vehicle parts interpreter Mode of arrival: ambulatory History of Present Illness HPI narrative: 56-year-old male with known liver cirrhosis, currently on the transplant list presents with increasing skin weeping below the navel that states has developed over the past 24 hours and also reports that he has weeping of his bilateral lower extremities as well. The states that he was seen on Monday by his primary care provider and at that time they increased his water pill. Patient reports that his abdominal discomfort and bloating his increased and that it is painful to sleep. Patient states that he ?eats whatever he wants? but also takes his medications as prescribed. Patient's last paracentesis was 2 years ago. Patient otherwise denies any fever, chills, nausea, vomiting, diarrhea and states that he continues is take his lactulose as prescribed. Related Data Home Medications Medication Instructions Recorded Confirmed escitalopram oxalate 10 mg tablet 1 tab PO DAILY 06/23/21 06/23/21 furosemide 20 mg tablet 1 tab PO DAILY 06/23/21 06/23/21 furosemide 40 mg tablet 1 tab PO DAILY 06/23/21 06/23/21 lactulose 10 gram/15 mL oral 15 ml PO DAILY 06/23/21 06/23/21 solution (Constulose) spironolactone 100 mg tablet 1 tab PO TIDWM 06/23/21 06/23/21 temazepam 15 mg capsule 1 cap PO BEDTIME 06/23/21 06/23/21 Allergies Allergy/AdvReac Type Severity Reaction Status Date / Time seafood Allergy Unknown Verified 06/23/20 18:40 Review of Systems Review of Systems: Pertinent positives and negatives as stated in HPI 10 point review of systems is otherwise negative. 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 GENERAL: Well developed, well nourished, in no acute distress. HEAD: Normocephalic/atraumatic, EYES: PERRLA, EOMI intact without pain, no nystagmus/pallor/icterus noted EARS: Ext canals without abnormality, TMs non-bulging and non-erythematous NOSE: Nares patent bilateral OROPHARYNX: no oral lesions noted, posterior pharynx clear and non-erythematous without noted tonsillar enlargement/erythema/exudates NECK: Supple, no adenopathy LUNGS: Normal breath sounds. No adventitious sounds or accessory muscle use. SpO2<100> CARDIOVASCULAR: Regular rate and rhythm without noted murmurs, no JVD but bilateral 2 to 3+ pitting edema up to the knees ABDOMEN: Elevated BMI, non-tender, significant anasarca, pitting edema to the abdominal wall. No rigidity. No guarding. No palpable masses or hernias noted MUSCULOSKELETAL: No tenderness, deformities, or effusions noted on gross inspection. EXTREMITIES: No cyanosis, clubbing but bilateral lower extremity 2 to 3+ pitting edema up to the knees and 1+ on distal thighs bilaterally SKIN: Inspection of the skin reveals no rashes NEUROLOGIC: Alert and oriented x 4. Strength and sensation to light touch were grossly intact x 4. Course Course Course Narrative: 56-year-old male with history and clinical presentation consistent with likely exacerbation of underlying anasarca secondary to patient's dietary choices, medications have been adjusted however short-term around time (2 days) so unable to appreciate any clinical changes. Otherwise patient is not confused and I do not suspect any encephalopathy nor do I suspect significant abdominal ascites as the fluid seems to be primarily within the abdominal wall and bilateral lower extremities. Review of all investigations without significant changes with her to prior evaluation, but patient with significant anasarca as well as moderate to large abdominal ascites. Patient is not encephalopathic, but doubt he will be able to successfully be optimized in the outpatient setting with regards to his fluid overload. I discussed the case with the inpatient hospitalist who accepts admission. Medical Decision Making Lab Data Result diagrams: 07/25/21 20:33 07/25/21 20:33 Labs: Lab Results 07/25/21 07/25/21 07/25/21 Range/Units 20:33 20:33 20:33 WBC 5.1 (4.8-10.8) X10*3/uL RBC 2.63 L (4.60-5.80) X10*6/uL Hgb 8.4 L (14.0-18.0) g/dl Hct 25.9 L (42.0-52.0) % MCV 98.5 H (80.0-98.0) fL MCH 31.9 (27.0-33.0) pg MCHC 32.4 (31.0-36.0) g/dl RDW 16.8 H (11.0-16.0) % Plt Count 65 L D (160-400) X10*3/uL MPV 10.2 (9.4-12.4) fL Immature Gran % (Auto) 0.4 (0.0-0.4) % Neut % (Auto) 69.6 (45-73) % Lymph % (Auto) 12.3 L (20-40) % [place] % (Auto) 14.4 H (2-11) % Eos % (Auto) 2.5 (0-4) % Baso % (Auto) 0.8 (0-2) % Lymph # (Auto) 0.6 L (1.2-4.9) X10*3/uL [place] # (Auto) 0.7 (0.1-1.2) X10*3/uL Eos # (Auto) 0.1 (0.0-0.4) X10*3/uL Baso # (Auto) 0.0 (0.0-0.2) X10*3/uL Abs Immat Gran (auto) 0.02 (0.00-0.03) X10*3/uL Absolute Neuts (auto) 3.6 (2.0-8.3) x10*3/uL Absolute Nucleated RBC 0.000 (0.0-0.012) X10*3/uL Nucleated RBC % (auto) 0.0 (0.0-0.2) /100WBC PT 20.8 H (9.9-13.0) SEC INR 1.8 H (0.9-1.1) Sodium 128 L (135-145) mmol/L Potassium 4.7 (3.3-5.1) mmol/L Chloride 99 (96-108) mmol/L Carbon Dioxide 24 (22-29) mmol/L Anion Gap 10 L (12-20) BUN 16 (9-16) mg/dL Creatinine 0.84 (0.5-1.4) mg/dL Estim Creat Clear Calc 115.6 Estimated GFR > 60 Random Glucose 96 (60-115) mg/dL Calcium 8.6 (8.4-10.2) mg/dL Total Bilirubin 4.1 H (0.0-1.0) mg/dL Direct Bilirubin 1.6 H (0.0-0.5) mg/dL AST 41 H (5-37) U/L ALT 27 (0-40) U/L Alkaline Phosphatase 139 H (39-117) U/L Ammonia (13-55) umol/L B-Natriuretic Peptide (<100) pg/mL Total Protein 7.0 (6.5-8.0) g/dL Albumin 2.0 L (3.5-5.0) g/dL 07/25/21 07/25/21 Range/Units 20:33 20:33 WBC (4.8-10.8) X10*3/uL RBC (4.60-5.80) X10*6/uL Hgb (14.0-18.0) g/dl Hct (42.0-52.0) % MCV (80.0-98.0) fL MCH (27.0-33.0) pg MCHC (31.0-36.0) g/dl RDW (11.0-16.0) % Plt Count (160-400) X10*3/uL MPV (9.4-12.4) fL Immature Gran % (Auto) (0.0-0.4) % Neut % (Auto) (45-73) % Lymph % (Auto) (20-40) % [place] % (Auto) (2-11) % Eos % (Auto) (0-4) % Baso % (Auto) (0-2) % Lymph # (Auto) (1.2-4.9) X10*3/uL [place] # (Auto) (0.1-1.2) X10*3/uL Eos # (Auto) (0.0-0.4) X10*3/uL Baso # (Auto) (0.0-0.2) X10*3/uL Abs Immat Gran (auto) (0.00-0.03) X10*3/uL Absolute Neuts (auto) (2.0-8.3) x10*3/uL Absolute Nucleated RBC (0.0-0.012) X10*3/uL Nucleated RBC % (auto) (0.0-0.2) /100WBC PT (9.9-13.0) SEC INR (0.9-1.1) Sodium (135-145) mmol/L Potassium (3.3-5.1) mmol/L Chloride (96-108) mmol/L Carbon Dioxide (22-29) mmol/L Anion Gap (12-20) BUN (9-16) mg/dL Creatinine (0.5-1.4) mg/dL Estim Creat Clear Calc Estimated GFR Random Glucose (60-115) mg/dL Calcium (8.4-10.2) mg/dL Total Bilirubin (0.0-1.0) mg/dL Direct Bilirubin (0.0-0.5) mg/dL AST (5-37) U/L ALT (0-40) U/L Alkaline Phosphatase (39-117) U/L Ammonia 63 H (13-55) umol/L B-Natriuretic Peptide 45 (<100) pg/mL Total Protein (6.5-8.0) g/dL Albumin (3.5-5.0) g/dL Discharge Plan Discharge Clinical Impression: Hyponatremia, Anasarca, Ascites, Cirrhosis of liver Patient Disposition: Admitted As Inpatient
[2021-07-26 05:05] VITALS: BP 116/60; PULSE 79; RESP 16; TEMP 36.4; O2SAT 92
[2021-07-26 07:10] LABS: COVID-19 Test Negative (Negative)
--- NOTE | 2021-07-26 08:20 | PHA.MEDREC ---
Pharmacy Consult ? Medication Reconciliation Pharmacy has completed the medication reconciliation.
--- NOTE | 2021-07-26 09:19 | PM.IMHP ---
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 Apparently, the patient had a PCP visit several days prior to admission at which point his diuretic dosing was increased and he was placed on further fluid restriction. Despite these efforts, he continues to retain fluid and gain weight. On further questioning, he does endorse dietary indiscretion, stating that he has been eating foods with higher salt content (pork, chips, etc). He denies any abdominal pain, nausea, vomiting, diarrhea. He denies any fevers and chills. He reports that his baseline weight for the previous year was about 217 lbs, but today's weight is >250 lbs. He reports compliance with his medications including diuretics + lactulose. He reports 2-3 bowel movements daily. He appears to be regretting his dietary indiscretions. Upon arrival to the ED, the patient was ntoed to have generalized anasarca. A CT scan of the abd/pelvis revealed significant ascites. Admission is requested for further treatment. COVID vaccination status -- immunized with 3 doses of mRNA vaccine Review of Systems Review of Systems: negative except HPI [facility] Medical History Brain lesion CHF (congestive heart failure) Hepatic cirrhosis Hepatic encephalopathy Liver cirrhosis Pertinent family history: none reported Social History Household Members: Spouse Housing: House Do you presently have visiting nurse or other home services: No Alcohol intake: never Patient Tobacco Use Status: Never used Tobacco e-Cigarette/Vaping Use: Never Used Use of substances other than those prescribed or required for medical reasons: No Currently Displaying Signs/Symptoms of Drug Intoxication Withdrawal: No Have you been hit, kicked, punched, or otherwise hurt by someone within the past year? If so, by whom?: No Do you feel safe in your current relationship?: Yes Is there a partner from a previous relationship who is making you feel unsafe now?: No Are you made to feel afraid or neglected: No Nondenominational Healthcare Practices: buddhism Advance Directives: Yes Advance Directives on File: Yes Advance Directives Date on File: 06/24/21 Do you have thoughts of harming others: None Do you have a plan to hurt others: No Plan Recently lost weight without trying: No Nutrition Risks: No Nutritional Risk service: No Current occupational status: disabled Meds Allergies Allergy/AdvReac Type Severity Reaction Status Date / Time seafood Allergy Unknown Verified 06/23/20 18:40 Active Medications: Current Medications Acetaminophen (Acetaminophen 325 Mg Tablet) 650 mg PO Q6H PRN PRN Reason: Pain, Mild (Pain Scale 1-3) Furosemide (Furosemide 40 Mg/4 Ml Vial) 40 mg IVPUSH BID@0900,1800 STEPHANIE; Protocol Sodium Chloride (0.9 % Sodium Chloride Flush 3 Ml Syringe) 3 ml IVFLUSH QSHIFT STEPHANIE Home Medications Medication Instructions Recorded Confirmed Last Taken Type escitalopram oxalate 10 mg tablet 1 tab PO DAILY 06/23/21 07/26/21 06/22/21 History furosemide 20 mg tablet 1 tab PO DAILY 06/23/21 07/26/21 07/24/21 History furosemide 40 mg tablet 1 tab PO DAILY 06/23/21 07/26/21 07/24/21 History lactulose 10 gram/15 mL oral 15 ml PO BID 06/23/21 07/26/21 07/24/21 History solution (Constulose) spironolactone 100 mg tablet 1 tab PO DAILY 06/23/21 07/26/21 07/24/21 History temazepam 15 mg capsule 1 cap PO BEDTIME PRN 06/23/21 07/26/21 06/22/21 History Physical Exam Vital Signs and Narrative: Vital Signs: Last Vital Signs Temp 97.5 F 07/26/21 05:05 Pulse 79 07/26/21 05:05 Resp 16 07/26/21 05:05 BP 116/60 07/26/21 05:05 Pulse Ox 92 07/26/21 05:05 BMI result Body Mass Index 41.8 Const: Other: Constitutional - Awake and Alert, genearlized anasarca Eyes - PERRLA, EOMI Cardiovascular - S1S2, RRR, Respiratory - Normal lung expansion, Normal respiratory effort, No respiratory distress, CTA bilaterally Gastrointestinal - Distneded with fluid thrill, non-tender; +abdominal wall edema - No CVA tenderness Extremities - 3+ pitting edema b/l LE up to thigh Musculoskeletal - Normal inspection, normal ROM Skin - Warm/Dry Neurological - Alert & oriented x3, No focal deficit; no asterixis Psychological - Appropriate affect Results Labs CBC and Chem 7: 07/27/21 06:22 07/27/21 06:22 Labs: Laboratory Results - last 24 hr 07/25/21 07/25/21 07/25/21 20:33 20:33 20:33 MCV 98.5 H MCH 31.9 MCHC 32.4 RDW 16.8 H Plt Count 65 L D MPV 10.2 Immature Gran % (Auto) 0.4 Neut % (Auto) 69.6 Lymph % (Auto) 12.3 L [place] % (Auto) 14.4 H Eos % (Auto) 2.5 Baso % (Auto) 0.8 Lymph # (Auto) 0.6 L [place] # (Auto) 0.7 Eos # (Auto) 0.1 Baso # (Auto) 0.0 Abs Immat Gran (auto) 0.02 Absolute Neuts (auto) 3.6 Absolute Nucleated RBC 0.000 Nucleated RBC % (auto) 0.0 PT 20.8 H INR 1.8 H Anion Gap 10 L Estim Creat Clear Calc 115.6 Estimated GFR > 60 Random Glucose 96 Calcium 8.6 Total Bilirubin 4.1 H Direct Bilirubin 1.6 H AST 41 H ALT 27 Alkaline Phosphatase 139 H Ammonia B-Natriuretic Peptide Total Protein 7.0 Albumin 2.0 L COVID-19 (RIMMA) COVID-19 Clin Com 07/25/21 07/25/21 07/26/21 20:33 20:33 06:43 MCV MCH MCHC RDW Plt Count MPV Immature Gran % (Auto) Neut % (Auto) Lymph % (Auto) [place] % (Auto) Eos % (Auto) Baso % (Auto) Lymph # (Auto) [place] # (Auto) Eos # (Auto) Baso # (Auto) Abs Immat Gran (auto) Absolute Neuts (auto) Absolute Nucleated RBC Nucleated RBC % (auto) PT INR Anion Gap Estim Creat Clear Calc Estimated GFR Random Glucose Calcium Total Bilirubin Direct Bilirubin AST ALT Alkaline Phosphatase Ammonia 63 H B-Natriuretic Peptide 45 Total Protein Albumin COVID-19 (RIMMA) Negative COVID-19 Clin Com See Note Imaging Radiologist's Impressions: Impressions Abdomen/Pelvis CT 07/26/21 05:17 IMPRESSION: Cirrhotic liver with moderate to large volume ascites. Splenomegaly. Cholelithiasis. Evaluation for cholecystitis is limited. Fleischner guidelines were followed. 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 He has not responded to outpatient changes to his regime and will now require IV diuretics. 1. Decompensated Cirrhosis significant fluid overload as evidenced by ascites + generalized anasarca + >30 lb weight gain from baseline unresponsive to oral diuretic therapy -- start IV lasix 40mg BID; continue aldactone intake and output if unresponsive to IV push lasix, may require IV lasix drip clinically no evidence of SBP -- but will get diagnostic and therapeutic paracentesis Due to high salt intake diet Continue baseline meds MELD score 15 2. HypoNa likely hypervoluemic i/o BMP daily if drops further, involve nephrology 3. Thrombocytoepnia chronic, due to end stage liver dx monitor 4. Elevated ammonia no evidence of encephalopathy at this time continue baseline lactulose Full Code DVT pptx, mechanical boots due to known esophageal varices + thrombocytopenia + coagulopathy In light of the patients decompensated cirrhosis and significant fluid overload -- I anticipate a medically necessary 2 midnight inpatient hospitalization for treatment and monitoring response to IV diuretic therapy. This cannot be completed in a less acute setting. Quality Stroke Does the patient have a stroke diagnosis?: No VTE Prior VTE?: No VTE Risk Level:: Medical - moderate - high VTE Device Contraindication: N/A - Device Ordered VTE Drug Contraindication: Treatment Not Indicated
[2021-07-26 09:55] VITALS: BP 118/66; PULSE 95; RESP 18; TEMP 37.1; O2SAT 100
[2021-07-26] MEDS: Spironolactone 25 MG TABLET 100 MG PO (10:56)
[2021-07-26] MEDS: Furosemide 40 MG/4 ML VIAL IVPUSH ×2 (10:56→17:31)
[2021-07-26] MEDS: Lactulose 20 GM/30 ML SOLUTION 10 GM PO ×2 (10:56→21:04)
[2021-07-26] MEDS: Escitalopram Oxalate 10 MG TABLET PO (10:56)
--- NOTE | 2021-07-26 11:15 | PC.NURSE ---
pt taken to have Paracenthesis done. 20g IV placed in LAC. meds given as documented.
--- NOTE | 2021-07-26 12:30 | PC.NURSE ---
pt returned from IR post parasenthesis. report from RN: 7.8 L of fluid removed from LL abdomen. small band aid noted over area, no drainage noted, pt denies pain.
[2021-07-26] MEDS: Lidocaine HCl 1 % MPF 5 ML VIAL SUBCUT (13:22)
[2021-07-26 13:57] LABS: MN% 84.7 %; PMN% 15.3 %; RBC Peritoneal Fluid 0.002 X10*6/uL; WBC Peritoneal Fluid 0.189 X10*3/uL
[2021-07-26 14:32] LABS: BF Shift QC OK YES; Lymphocyte Peritoneal Fl 38 %; Monocytes Peritoneal Fl 18 %; Neutrophils Peritoneal Fluid 6 %; Other Peritioneal Fl 38 %
[2021-07-26 14:45] VITALS: BP 95/54; PULSE 94; RESP 18; TEMP 36.8; O2SAT 98
[2021-07-26] MEDS: Albumin Human 25 % 100 ML IV ×2 (15:46→17:33)
[2021-07-26 16:00] VITALS: BP 121/70; PULSE 105; RESP 18; TEMP 37.1; O2SAT 99
--- NOTE | 2021-07-26 16:18 | PC.NURSE ---
report given to ANNELISE Alonso. pt will be transported to room 371 by [facility] guard. pt alert and oriented, albumin running.
[2021-07-26 23:53] VITALS: BP 100/50; PULSE 103; RESP 14; TEMP 37; O2SAT 99
[2021-07-27] MEDS: 0.9 % Sodium Chloride Flush 3 ML SYRINGE IVFLUSH ×3 (00:10→17:57)
[2021-07-27 06:54] VITALS: BP 111/58; PULSE 88; RESP 18; TEMP 36.6; O2SAT 98
[2021-07-27 07:12] LABS: Hematocrit 22.5 % (42.0-52.0); Hemoglobin 7.2 g/dl (14.0-18.0); Red Blood Count 2.32 X10*6/uL (4.60-5.80); White Blood Count 3.9 X10*3/uL (4.8-10.8)
[2021-07-27 07:13] LABS: Platelet Count 51 X10*3/uL (160-400)
[2021-07-27 07:49] LABS: Anion Gap 9 (12-20); Blood Urea Nitrogen 14 mg/dL (9-16); Calcium 8.2 mg/dL (8.4-10.2); Carbon Dioxide 24 mmol/L (22-29); Chloride 100 mmol/L (96-108); Creatinine Clr Calc Pharmacy 110.4; Estimated Glomerular Filt Rate > 60; Glucose Random 107 mg/dL (60-115); Potassium 4.2 mmol/L (3.3-5.1); Sodium 129 mmol/L (135-145)
[2021-07-27] MEDS: Furosemide 40 MG/4 ML VIAL IVPUSH ×2 (09:01→17:56)
[2021-07-27] MEDS: Lactulose 20 GM/30 ML SOLUTION 10 GM PO ×2 (09:01→20:43)
[2021-07-27] MEDS: Escitalopram Oxalate 10 MG TABLET PO (09:01)
[2021-07-27] MEDS: Spironolactone 25 MG TABLET 100 MG PO (09:01)
--- NOTE | 2021-07-27 10:28 | P.CDIC_ITS ---
CDI Concurrent Query Documentation Clarification: PHYSICIAN'S DOCUMENTATION REQUEST Date of Query: 07/27/21 1029 Patient Name: Artemio Parker Admit Date: 07/26/21 Dear Doctor, A review of the medical record indicates additional documentation may be needed. Please review below and update the documentation accordingly. Clinical Indicators: Risk Factors/Clinical Indicators/Treatments BMI 41.7 5' 6 in height If possible, please provide an associated diagnosis related to the abnormal BMI, such as: For a BMI >= 40: * Overweight * Obesity * Due to excess calories * Drug induced * Due to other cause * Severe or Morbid Obesity * With alveolar hypoventilation * Without alveolar hypoventilation Or: * BMI is not significant * Other (please specify) * Unable to determine Use of terms such as suspected, likely, concern for, or probable (associated with a specific diagnosis that is being evaluated, monitored, or treated as if it exists) are acceptable and can be coded in the inpatient setting, when documented at the time of discharge. Thank you, Angeline Mcpherson [facility], CDIS Extension: [phone] Please use your independent medical judgment in providing your response. THIS QUERY IS PART OF THE PERMANENT MEDICAL RECORD Provider Response: Obesity
--- NOTE | 2021-07-27 10:28 | MHC.CDI.CONC ---
CDI Concurrent Query Documentation Clarification: PHYSICIAN'S DOCUMENTATION REQUEST Date of Query: 07/27/21 1029 Patient Name: Artemio Parker Admit Date: 07/26/21 Dear Doctor, A review of the medical record indicates additional documentation may be needed. Please review below and update the documentation accordingly. Clinical Indicators: Risk Factors/Clinical Indicators/Treatments BMI 41.7 5' 6 in height If possible, please provide an associated diagnosis related to the abnormal BMI, such as: For a BMI >= 40: Overweight Obesity Due to excess calories Drug induced Due to other cause Severe or Morbid Obesity With alveolar hypoventilation Without alveolar hypoventilation Or: BMI is not significant Other (please specify) Unable to determine Use of terms such as suspected, likely, concern for, or probable (associated with a specific diagnosis that is being evaluated, monitored, or treated as if it exists) are acceptable and can be coded in the inpatient setting, when documented at the time of discharge. Thank you, Angeline Mcpherson [facility], CDIS Extension: [phone] Please use your independent medical judgment in providing your response. THIS QUERY IS PART OF THE PERMANENT MEDICAL RECORD Provider Response: Obesity
--- NOTE | 2021-07-27 11:23 | P.PNIM_ITS ---
Subjective Subjective Date of Service: 07/27/21 Review of Systems Follow-up decompensated liver cirrhosis, hyponatremia Feels well actually better after the paracentesis Denies shortness of breath Physical Exam Vital Signs: Vital Signs: Last Vital Signs Temp 98 F 07/27/21 06:54 Pulse 88 07/27/21 06:54 Resp 18 07/27/21 06:54 BP 111/58 L 07/27/21 06:54 Pulse Ox 98 07/27/21 06:54 BMI result Body Mass Index 41.8 Appearing in no acute distress lung sounds are clear to auscultation heart regular rate rhythm, clear S1, S2 positive bowel sounds, abdomen is soft, nontender neuro patient is alert x3, no focal deficits Objective Data Active Medications Acetaminophen (Acetaminophen 325 Mg Tablet) 650 mg PO Q6H PRN PRN Reason: Pain, Mild (Pain Scale 1-3) Escitalopram Oxalate (Escitalopram Oxalate 10 Mg Tablet) 10 mg PO DAILY COUNTS INCLUDE 234 BEDS AT THE [facility] Last Admin: 07/27/21 09:01 Dose: 10 mg Documented by: THOMPSON Furosemide (Furosemide 40 Mg/4 Ml Vial) 40 mg IVPUSH BID@0900,1800 COUNTS INCLUDE 234 BEDS AT THE [facility]; Protocol Last Admin: 07/27/21 09:01 Dose: 40 mg Documented by: THOMPSON Lactulose (Lactulose 20 Gm/30 Ml Solution) 10 gm PO BID COUNTS INCLUDE 234 BEDS AT THE [facility] Last Admin: 07/27/21 09:01 Dose: 10 gm Documented by: THOMPSON Sodium Chloride (0.9 % Sodium Chloride Flush 3 Ml Syringe) [facility] Last Admin: 07/27/21 09:01 Dose: 3 ml Documented by: THOMPSON Spironolactone (Spironolactone 25 Mg Tablet) 100 mg PO DAILY COUNTS INCLUDE 234 BEDS AT THE [facility]; Protocol Last Admin: 07/27/21 09:01 Dose: 100 mg Documented by: THOMPSON Temazepam (Temazepam 15 Mg Capsule) 15 mg PO BEDTIME PRN PRN Reason: Insomnia Labs CBC & Chem 7: 07/27/21 06:22 07/27/21 06:22 Labs: Laboratory Results - last 24 hr 07/26/21 07/27/21 07/27/21 12:00 06:22 06:22 MCV 97.0 MCH 31.0 MCHC 32.0 RDW 17.0 H Plt Count 51 L MPV 10.0 Absolute Nucleated RBC 0.000 Nucleated RBC % (auto) 0.0 Anion Gap 9 L Estim Creat Clear Calc 110.4 Estimated GFR > 60 Random Glucose 107 Calcium 8.2 L Peritoneal WBC 0.189 Peritoneal RBC 0.002 Periton Neutrophils 6 Periton Lymphocytes 38 Peritoneal Monocytes 18 Peritoneal Other Cells 38 Microbiology Microbiology Results: Microbiology 07/26/21 12:00 Gram Stain - Final Ascites Fluid Anaerobic Culture - Preliminary No growth to date. Body Fluid Culture - Preliminary No growth to date. 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 He has not responded to outpatient changes to his regime and will now require IV diuretics. Decompensated Cirrhosis significant fluid overload as evidenced by? ascites + generalized anasarca + >30 lb weight gain from baseline IV lasix 40mg BID; continue aldactone intake and output if unresponsive to IV push lasix, may require IV lasix drip clinically no evidence of SBP, a 7.8 L out from paracentesis MELD score 15 HypoNa. Slowly trending up likely hypervolemia Intake and output Consider Nephrology consult if worsens Thrombocytopenia chronic, due to end stage liver dx monitor Elevated ammonia no evidence of encephalopathy at this time continue baseline lactulose Obesity. BMI 41.8 Discussed the importance of weight management as this may be contributing to worsening of other comorbidities. Full Code DVT pptx, mechanical boots due to known esophageal varices + thrombocytopenia + coagulopathy Attending Dr. Pelayo Patient requires continued hospitalization For IV Lasix secondary to fluid overload and monitoring of electrolytes. Quality Quality Stroke Does the patient have a stroke diagnosis?: No VTE Prior VTE?: No VTE Risk Level:: Medical - moderate - high VTE Device Contraindication: N/A - Device Ordered VTE Drug Contraindication: Treatment Not Indicated
--- NOTE | 2021-07-27 11:39 | P.CNGI_ITS ---
History of Present Illness Data of Consult Service Date: 07/27/21 Requesting physician: Kayla Wiley Primary Care Provider: Miroslava Murphy MD HPI Reason for consult: ascites 56 year old male with a PMH of decompensated CAZARES related Cirrhosis(on the transplant list at [facility]), chronic hypoNa, thrombocytoepnia, and depression who I am seeing for assessment for ascites and fluid overload Patient presented with increasing abdominal distension and generalized anasarca for the last several days. PCP had increased diuretics and was advised on fluid restriction. In presence of denies diet indiscretion but per admission HP he had ahasn eating liberally. He denies any abdominal pain, nausea, vomiting, diarrhea. He denies any fevers and chills. HE denies constipation and takes lactulose daily. He denies rectal bleeding or melena. He had paracentesis with 7 L removed, no evidence of SBP per labs. Review of Systems Review of Systems: Constitutional : +Weight gain, No Fever, No Chills ENT/Mouth : No sore throat, No Rhinorrhea Eyes: No Swelling, No Redness Cardiovascular : No Chest Pain, No SOB, + Edema Respiratory : No Cough, No Sputum, No Wheezing Gastrointestinal : see HPI Genitourinary : NO Dysuria, No Urinary Frequency, No Hematuria, No Urgency Musculoskeletal : No joint pain, No Myalgias, No Joint Swelling Skin : No Skin Lesions, No rash Neuro : No Weakness, No Numbness, No Dizziness, No Headache Psych : No Anxiety/Panic, No Depression Heme/Lymph: No Bruising, No Lymphadenopathy Endocrine : No Polyuria, No Polydipsia All other systems reviewed and are negative [facility] Past Medical History Medical History Brain lesion CHF (congestive heart failure) Hepatic cirrhosis Hepatic encephalopathy Liver cirrhosis Social History Social History Household Members: Spouse Housing: House Do you presently have visiting nurse or other home services: No Alcohol intake: never Patient Tobacco Use Status: Never used Tobacco e-Cigarette/Vaping Use: Never Used Use of substances other than those prescribed or required for medical reasons: No Currently Displaying Signs/Symptoms of Drug Intoxication Withdrawal: No Have you been hit, kicked, punched, or otherwise hurt by someone within the past year? If so, by whom?: No Do you feel safe in your current relationship?: Yes Is there a partner from a previous relationship who is making you feel unsafe now?: No Are you made to feel afraid or neglected: No Roman Catholic Healthcare Practices: synagogue Advance Directives: Yes Advance Directives on File: Yes Advance Directives Date on File: 06/24/21 Do you have thoughts of harming others: None Do you have a plan to hurt others: No Plan Recently lost weight without trying: No Nutrition Risks: No Nutritional Risk service: No Current occupational status: disabled Meds Allergies Allergy/AdvReac Type Severity Reaction Status Date / Time seafood Allergy Unknown Verified 06/23/20 18:40 Active Medications: Current Medications Acetaminophen (Acetaminophen 325 Mg Tablet) 650 mg PO Q6H PRN PRN Reason: Pain, Mild (Pain Scale 1-3) Escitalopram Oxalate (Escitalopram Oxalate 10 Mg Tablet) 10 mg PO DAILY [facility] Last Admin: 07/27/21 09:01 Dose: 10 mg Documented by: Furosemide (Furosemide 40 Mg/4 Ml Vial) 40 mg IVPUSH BID@0900,1800 [facility]; Protoco l Last Admin: 07/27/21 09:01 Dose: 40 mg Documented by: Lactulose (Lactulose 20 Gm/30 Ml Solution) 10 gm PO BID [facility] Last Admin: 07/27/21 09:01 Dose: 10 gm Documented by: Sodium Chloride (0.9 % Sodium Chloride Flush 3 Ml Syringe) 3 ml IVFLUSH QSHIFT [facility] Last Admin: 07/27/21 09:01 Dose: 3 ml Documented by: Spironolactone (Spironolactone 25 Mg Tablet) 100 mg PO DAILY [facility]; Protocol Last Admin: 07/27/21 09:01 Dose: 100 mg Documented by: Temazepam (Temazepam 15 Mg Capsule) 15 mg PO BEDTIME PRN PRN Reason: Insomnia Home Medications Medication Instructions Recorded Confirmed Last Taken Type escitalopram oxalate 10 mg tablet 1 tab PO DAILY 06/23/21 07/26/21 06/22/21 History furosemide 20 mg tablet 1 tab PO DAILY 06/23/21 07/26/21 07/24/21 History furosemide 40 mg tablet 1 tab PO DAILY 06/23/21 07/26/21 07/24/21 History lactulose 10 gram/15 mL oral 15 ml PO BID 0207/26/21 07/24/21 History solution (Constulose) spironolactone 100 mg tablet 1 tab PO DAILY 06/23/21 07/26/21 07/24/21 History temazepam 15 mg capsule 1 cap PO BEDTIME PRN 06/23/21 07/26/21 06/22/21 History Physical Exam Vital Signs: Vital Signs: Last Vital Signs Temp 98 F 07/27/21 06:54 Pulse 88 07/27/21 06:54 Resp 18 07/27/21 06:54 BP 111/58 L 07/27/21 06:54 Pulse Ox 98 07/27/21 06:54 BMI result Body Mass Index 41.8 EXAM: GENERAL: The patient is well developed and nontoxic. VITAL SIGNS:see workflow HEENT: Nonicteric sclerae, PERRLA, EOMI. Oropharynx clear. Moist mucous membranes. Conjunctivae appear well perfused. No thyroid mass. CHEST: Chest wall is nontender. HEART: Regular rate and rhythm, PSM at parasternal edge LUNGS: Clear to auscultation bilaterally. ABDOMEN: Soft, positive bowel sounds, nontender, no organomegaly.no flank tenderness, distended SKIN: No rash, no excessive bruising, petechiae, or purpura. NEUROLOGIC: Cranial nerves II-XII intact without motor/sensory deficit. Psych--slow train o thought Results Labs CBC & Chem 7: 07/27/21 06:22 07/27/21 06:22 Labs: Short CBC 07/27/21 Range/Units 06:22 WBC 3.9 L (4.8-10.8) X10*3/uL Hgb 7.2 L (14.0-18.0) g/dl Hct 22.5 L (42.0-52.0) % Plt Count 51 L (160-400) X10*3/uL BMP 07/27/21 06:22 Sodium 129 L Potassium 4.2 Chloride 100 Carbon Dioxide 24 BUN 14 Creatinine 0.88 Calcium 8.2 L Microbiology Microbiology Results: Microbiology 07/26/21 12:00 Ascites Fluid Gram Stain - Final 07/26/21 12:00 Ascites Fluid Anaerobic Culture - Preliminary No growth to date. 07/26/21 12:00 Ascites Fluid Body Fluid Culture - Preliminary No growth to date. Assessment and Plan (1) Decompensated hepatic cirrhosis: Status: Acute (2) Anemia: Status: Acute Plan Decompensated cirrhosis with ascites may be worse due to diet indiscretion, natural progression of cirhosis, budd chairi or PVT, non compliance with medications. hepatocardiac syndrome is also possible rod given presence of murmur. Anemia, related to hypersplenism, occult blood loss or diet insufficency PLAN; 1/ check doppler portal system 2/consider ECHO for further assessment 3/ titrate diuretics, aldactone: furesomide e.g lasix 20 mg, aldactone 100 mg 4/ check iron levels, ferritin, b12, folate, hemolysis labs 5/IF anemia persists or overt GIB can consider EGD Procedures Date of Service Date of Service: 07/27/21
--- NOTE | 2021-07-27 12:14 | MHC.CM.PN ---
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
--- NOTE | 2021-07-27 15:00 | CA_ITS ---
Transthoracic Echocardiogram Patient (Last, First, Middle): Artemio Davies, Gender: Male Date of : 1965 Age: 56 Procedure Date: 07/27/2021 Procedure Type: Transthoracic Echocardiogram Location: S3E Height: 167.64 cm Weight: 117.94 kg BSA: 2.24 m2 Heart Rate: bpm BP: 111 / 61 mmHg Nuclear Medical Technologist: Referring MD: Kayla Wiley NP Symptoms: fluid overload Study Quality: Fair ECG Rhythm: Sinus Conclusions: - Normal left ventricular size and systolic function. There is mildly increased left ventricular wall thickness. The visually estimated ejection fraction is between 60-65%. - Mildly increased right ventricular cavity size. There is normal right ventricular systolic function. - The left atrium is severely dilated. The right atrium is normal in size. - There is mild to moderate aortic valve stenosis. - There is moderate stenosis. Peak PV gradient is calculated at 44 mmHg. - There is mild dilatation of the sinuses of Valsalva measuring 3.90 cm and mild dilatation of the ascending aorta measuring 3.70 cm. Findings Left Ventricle Normal left ventricular size and systolic function. There is mildly increased left ventricular wall thickness. The visually estimated ejection fraction is between 60-65%. There is no evidence of regional wall motion abnormalities. Diastolic function is indeterminate on the basis of available data. Right Ventricle Mildly increased right ventricular cavity size. There is normal right ventricular systolic function. Atria The left atrium is severely dilated. The right atrium is normal in size. Aortic Valve The aortic valve was not well visualized. There is moderate calcification of the aortic valve. There is mild to moderate aortic valve stenosis. There is mild aortic valve regurgitation. Mitral Valve There is moderate mitral annular calcification. There is mild mitral valve regurgitation. There is no mitral valve stenosis. Pulmonic Valve The pulmonic valve was not well visualized. There is no pulmonic valve regurgitation. There is moderate stenosis. Peak PV gradient is calculated at 44 mmHg. Tricuspid Valve Normal tricuspid valve structure and function. There is trace tricuspid valve regurgitation. Normal right atrial pressure. There is no evidence of pulmonary hypertension. Great Vessels There is mild dilatation of the sinuses of Valsalva measuring 3.90 cm and mild dilatation of the ascending aorta measuring 3.70 cm. The visualized portions of the pulmonary artery and branches are normal. Venous The inferior vena cava is normal in size and collapses greater than 50% with inspiration. Pericardium/Pleural There is no evidence of pericardial effusion. Prior Study Comparison No prior study available for comparison. Measurements 2D Linear Measurements IVSd: 1.35 0.6-0.9/0.6-1.0 cm LVIDd: 4.17 3.9-5.3/4.2-5.9 cm LVIDd Index: 1.86 2.4-3.2/2.2-3.1 cm/m2 LVIDs: 2.08 2.0-3.6 cm LVPWd: 1.25 0.7-1.1 cm LA Diam: 4.90 2.7-3.8/3.0-4.0 cm LAIDs Index: 2.19 1.5-2.3 cm/m2 LV Mass: 247.29 67-162/88-224 g LV Mass Index: 110.40 43-95/49-115 g/m2 LVOT Diam: 2.40 3.0+(-)1.3 cm Mitral Valve MV VTI: 0.38 MV Pk Panfilo: 1.58 MV Mn Panfilo: 1.09 MV Pk Grad: 10.00 MV Mn Grad: 5.00 MV Pk E: 1.34 MV PK A: 1.40 MV Decel Time: 218.00 E/A: 1.00 E'Lateral: 10.20 E'Medial: 13.30 E/E' Med: 10.10 E/E' Lat: 13.10 PHT: 64.00 MVA PHT: 3.44 MVA Continuity: 3.69 Decel [place]: 6.15 Aortic Valve AoV Pk Panfilo: 2.86 AoV Mn Panfilo: 1.62 AoV VTI: 0.52 AoV Pk Grad: 33.00 Aov Mn Grad: 14.00 JOSE Cont.VTI: 2.65 LVOT LVOT Pk Panfilo: 1.41 LVOT Mn Panfilo: 0.92 LVOT VTI: 0.31 LVOT Pk Grad: 8.00 LVOT Mn Grad: 4.00 LVOT Diam: 2.40 LVOT Area: 4.52 Diastolic Function MV Pk E: 1.34 MV Pk A: 1.40 E/A: 1.00 E'Medial: 13.30 E/E' Med: 10.10 E' Laterial: 10.20 E/E' Lat: 13.10 Right Ventricle TAPSE (mm): 32.00 TVS' Panfilo: 20.00 Tricuspid Valve TR Pk Panfilo: 1.83 TR Pk Grad: 13.00 RA Press: 3.00 RVSP: 16.00 Great Vessels Aorta Sinus of Valsalva: 3.90 2.0-3.5 cm Ao Asc: 3.70 2.1-3.4 cm Pulmonary Valve PV Pk Panfilo: 3.32 PV Min Panfilo: 2.15 Peak PV Grad: 44.00 PV Mn Grad: 22.00 Shunting QP:QS: 0.90 Updated in Other Vendor System with Status of Final Ta Patricio MD electronically signed on 07/28/2021 8:20:18 PM with status of Final
[2021-07-27 15:09] VITALS: BP 111/61; PULSE 90; RESP 18; TEMP 36.6; O2SAT 98
[2021-07-27 23:31] VITALS: BP 106/60; PULSE 83; RESP 17; TEMP 36.6; O2SAT 98
[2021-07-28] MEDS: 0.9 % Sodium Chloride Flush 3 ML SYRINGE IVFLUSH ×3 (00:09→15:58)
[2021-07-28 07:38] VITALS: BP 118/57; PULSE 90; RESP 19; TEMP 37.4; O2SAT 98
[2021-07-28] MEDS: Spironolactone 25 MG TABLET 100 MG PO (08:27)
[2021-07-28] MEDS: Escitalopram Oxalate 10 MG TABLET PO (08:27)
[2021-07-28] MEDS: Lactulose 20 GM/30 ML SOLUTION 10 GM PO ×2 (08:28→20:32)
[2021-07-28] MEDS: Furosemide 40 MG/4 ML VIAL IVPUSH ×2 (08:28→17:12)
[2021-07-28 08:39] VITALS: BMI 38.8
--- NOTE | 2021-07-28 10:45 | P.PNIM_ITS ---
Subjective Subjective Date of Service: 07/28/21 Review of Systems Follow-up decompensated liver cirrhosis, hyponatremia Feels well actually better after the paracentesis Denies shortness of breath Physical Exam Vital Signs: Vital Signs: Last Vital Signs Temp 99.4 F 07/28/21 07:38 Pulse 90 07/28/21 07:38 Resp 19 07/28/21 07:38 BP 118/57 L 07/28/21 07:38 Pulse Ox 98 07/28/21 07:38 BMI result Body Mass Index 38.8 Appearing in no acute distress lung sounds are clear to auscultation heart regular rate rhythm, clear S1, S2, LE edema positive bowel sounds, abdomen is soft, nontender neuro patient is alert x3, no focal deficits Objective Data Active Medications Acetaminophen (Acetaminophen 325 Mg Tablet) 650 mg PO Q6H PRN PRN Reason: Pain, Mild (Pain Scale 1-3) Escitalopram Oxalate (Escitalopram Oxalate 10 Mg Tablet) 10 mg PO DAILY [facility] Last Admin: 07/28/21 08:27 Dose: 10 mg Documented by: ESE Furosemide (Furosemide 40 Mg/4 Ml Vial) 40 mg IVPUSH BID@0900,1800 [facility]; Protocol Last Admin: 07/28/21 08:28 Dose: 40 mg Documented by: ESE Lactulose (Lactulose 20 Gm/30 Ml Solution) 10 gm PO BID [facility] Last Admin: 07/28/21 08:28 Dose: 10 gm Documented by: ESE Sodium Chloride (0.9 % Sodium Chloride Flush 3 Ml Syringe) 3 ml IVFLUSH QSHIFT [facility] Last Admin: 07/28/21 08:38 Dose: 3 ml Documented by: ESE Spironolactone (Spironolactone 25 Mg Tablet) 100 mg PO DAILY [facility]; Protocol Last Admin: 07/28/21 08:27 Dose: 100 mg Documented by: ESE Temazepam (Temazepam 15 Mg Capsule) 15 mg PO BEDTIME PRN PRN Reason: Insomnia Labs CBC & Chem 7: 07/27/21 06:22 07/28/21 10:43 Microbiology Microbiology Results: Microbiology 07/26/21 12:00 Gram Stain - Final Ascites Fluid Anaerobic Culture - Preliminary No growth to date. 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 He has not responded to outpatient changes to his regime and will now require IV diuretics. Decompensated Cirrhosis significant fluid overload as evidenced by? ascites + generalized anasarca + >30 lb weight gain from baseline IV lasix 40mg BID; continue aldactone intake and output clinically no evidence of SBP, a 7.8 L out from paracentesis MELD score 15 Echo pending to determine whether overload also has cardiac component US doppler to look at portal system HypoNa. Slowly trending up likely hypervolemia Intake and output Consider Nephrology consult if worsens Thrombocytopenia chronic, due to end stage liver dx monitor Elevated ammonia no evidence of encephalopathy at this time continue baseline lactulose Obesity. BMI 41.8 Discussed the importance of weight management as this may be contributing to worsening of other comorbidities. Full Code DVT pptx, mechanical boots due to known esophageal varices + thrombocytopenia + coagulopathy Attending Dr. Pelayo Patient requires continued hospitalization For IV Lasix secondary to fluid overload and monitoring of electrolytes. there is also pending echocardiogram and abdominal ultrasound Doppler that patient needs to be inpatient for. Quality Stroke Does the patient have a stroke diagnosis?: No VTE Prior VTE?: No VTE Risk Level:: Medical - moderate - high VTE Device Contraindication: N/A - Device Ordered VTE Drug Contraindication: Treatment Not Indicated
[2021-07-28 11:29] LABS: Anion Gap 8 (12-20); Blood Urea Nitrogen 13 mg/dL (9-16); Calcium 8.3 mg/dL (8.4-10.2); Carbon Dioxide 24 mmol/L (22-29); Chloride 100 mmol/L (96-108); Creatinine Clr Calc Pharmacy 109.7; Estimated Glomerular Filt Rate > 60; Glucose Random 132 mg/dL (60-115); Potassium 3.9 mmol/L (3.3-5.1); Sodium 128 mmol/L (135-145)
[2021-07-28 15:32] VITALS: BP 127/68; PULSE 92; RESP 18; TEMP 37.1; O2SAT 99
[2021-07-28 23:43] VITALS: BP 114/56; PULSE 91; RESP 18; TEMP 36.7; O2SAT 99
[2021-07-29] MEDS: 0.9 % Sodium Chloride Flush 3 ML SYRINGE IVFLUSH ×4 (00:06→19:58)
[2021-07-29 07:00] VITALS: BP 114/57; PULSE 84; RESP 14; TEMP 37.1; O2SAT 90
[2021-07-29 08:16] LABS: MANUAL DIFF FLAG NO
[2021-07-29 08:18] LABS: Basophils Percent Auto 0.5 % (0-2); Eosinophils Absolute Auto 0.2 X10*3/uL (0.0-0.4); Eosinophils Percent Auto 4.7 % (0-4); Hematocrit 24.5 % (42.0-52.0); Hemoglobin 7.9 g/dl (14.0-18.0); Imm Gran Abs Auto 0.01 X10*3/uL (0.00-0.03); Imm Gran Pct Auto 0.2 % (0.0-0.4); Lymphocytes Absolute Auto 0.7 X10*3/uL (1.2-4.9); Lymphocytes Percent Auto 16.9 % (20-40); Mean Corpuscular HGB Conc 32.2 g/dl (31.0-36.0); Mean Corpuscular Hemoglobin 31.3 pg (27.0-33.0); Mean Corpuscular Volume 97.2 fL (80.0-98.0); Monocytes Absolute Auto 0.5 X10*3/uL (0.1-1.2); Monocytes Percent Auto 12.9 % (2-11); Neutrophils Absolute Auto 2.6 x10*3/uL (2.0-8.3); Neutrophils Percent Auto 64.8 % (45-73); Red Blood Count 2.52 X10*6/uL (4.60-5.80); Red Cell Distribution Width 17.1 % (11.0-16.0)
[2021-07-29 08:24] LABS: Platelet Count 51 X10*3/uL (160-400)
[2021-07-29 08:35] LABS: Alanine Aminotransferase 21 U/L (0-40); Alkaline Phosphatase 118 U/L (39-117); Aspartate Amino Transferase 34 U/L (5-37); Bilirubin Direct 1.3 mg/dL (0.0-0.5); Bilirubin Total 3.3 mg/dL (0.0-1.0); Iron 36 mcg/dL (45-160); Percent Iron Saturation 14 % (15-50); Total Iron Binding Capacity 255 mcg/dL (228-428); Total Protein 6.2 g/dL (6.5-8.0); Unsaturated Iron Binding 219 ug/dL
[2021-07-29 08:36] LABS: Anion Gap 8 (12-20); Blood Urea Nitrogen 12 mg/dL (9-16); Calcium 8.4 mg/dL (8.4-10.2); Carbon Dioxide 26 mmol/L (22-29); Chloride 100 mmol/L (96-108); Creatinine Clr Calc Pharmacy 113.7; Estimated Glomerular Filt Rate > 60; Glucose Random 75 mg/dL (60-115); Potassium 4.6 mmol/L (3.3-5.1); Sodium 129 mmol/L (135-145)
[2021-07-29] MEDS: Furosemide 40 MG/4 ML VIAL IVPUSH ×2 (09:04→17:42)
[2021-07-29] MEDS: Lactulose 20 GM/30 ML SOLUTION 10 GM PO ×2 (09:04→19:51)
[2021-07-29] MEDS: Spironolactone 25 MG TABLET 100 MG PO (09:04)
[2021-07-29] MEDS: Escitalopram Oxalate 10 MG TABLET PO (09:04)
[2021-07-29 09:12] LABS: Folate 11.7 ng/mL (> or = 4.0); Vitamin B12 1208 pg/mL (200-900)
--- NOTE | 2021-07-29 10:20 | P.CONCA_ITS ---
History of Present Illness History of Present Illness Date of Service: 07/29/21 Requesting physician: Colleen Michel Chief complaint: Generalized anasarca Narrative: 56-year-old gentleman who is presenting for ascites and anasarca. He has known history of cirrhosis of liver. He has no shortness of breath. No chest volume overloaded by exam. He drinks a lot of water and does not comply with salt diet at home. [facility] Past Medical History Medical History (Updated 07/29/21 @ 18:46 by Ta Patricio MD) Brain lesion CHF (congestive heart failure) Hepatic cirrhosis Hepatic encephalopathy Liver cirrhosis Social History Social History Household Members: Spouse Housing: House Do you presently have visiting nurse or other home services: No Alcohol intake: never Patient Tobacco Use Status: Never used Tobacco e-Cigarette/Vaping Use: Never Used Use of substances other than those prescribed or required for medical reasons: No Currently Displaying Signs/Symptoms of Drug Intoxication Withdrawal: No Have you been hit, kicked, punched, or otherwise hurt by someone within the past year? If so, by whom?: No Do you feel safe in your current relationship?: Yes Is there a partner from a previous relationship who is making you feel unsafe now?: No Are you made to feel afraid or neglected: No S[employer] Healthcare Practices: quaker Advance Directives: Yes Advance Directives on File: Yes Advance Directives Date on File: 06/24/21 Do you have thoughts of harming others: None Do you have a plan to hurt others: No Plan Recently lost weight without trying: No Nutrition Risks: No Nutritional Risk service: No Current occupational status: disabled Meds Allergies Allergy/AdvReac Type Severity Reaction Status Date / Time seafood Allergy Unknown Verified 06/23/20 18:40 Active Medications: Current Medications Acetaminophen (Acetaminophen 325 Mg Tablet) 650 mg PO Q6H PRN PRN Reason: Pain, Mild (Pain Scale 1-3) Escitalopram Oxalate (Escitalopram Oxalate 10 Mg Tablet) 10 mg PO DAILY [facility] Last Admin: 07/29/21 09:04 Dose: 10 mg Documented by: Furosemide (Furosemide 40 Mg/4 Ml Vial) 40 mg IVPUSH BID@0900,1800 [facility]; Protocol Last Admin: 07/29/21 09:04 Dose: 40 mg Documented by: Lactulose (Lactulose 20 Gm/30 Ml Solution) 10 gm PO BID [facility] Last Admin: 07/29/21 09:04 Dose: 10 gm Documented by: Sodium Chloride (0.9 % Sodium Chloride Flush 3 Ml Syringe) 3 ml IVFLUSH QSHIFT [facility] Last Admin: 07/29/21 09:04 Dose: 3 ml Documented by: Spironolactone (Spironolactone 25 Mg Tablet) 100 mg PO DAILY [facility]; Protocol Last Admin: 07/29/21 09:04 Dose: 100 mg Documented by: Temazepam (Temazepam 15 Mg Capsule) 15 mg PO BEDTIME PRN PRN Reason: Insomnia Home Medications Medication Instructions Recorded Confirmed Last Taken Type escitalopram oxalate 10 mg tablet 1 tab PO DAILY 06/23/21 07/26/21 06/22/21 History furosemide 20 mg tablet 1 tab PO DAILY 06/23/21 07/26/21 07/24/21 History furosemide 40 mg tablet 1 tab PO DAILY 06/23/21 07/26/21 07/24/21 History lactulose 10 gram/15 mL oral 15 ml PO BID 06/23/21 07/26/21 07/24/21 History solution (Constulose) spironolactone 100 mg tablet 1 tab PO DAILY 06/23/21 07/26/21 07/24/21 History temazepam 15 mg capsule 1 cap PO BEDTIME PRN 06/23/21 07/26/21 06/22/21 History Physical Exam Vital Signs: Vital Signs: Last Vital Signs Temp 98.7 F 07/29/21 07:00 Pulse 84 07/29/21 07:00 Resp 14 07/29/21 07:00 BP 114/57 L 07/29/21 07:00 Pulse Ox 90 L 07/29/21 07:00 BMI result Body Mass Index 38.8 GENERAL APPEARANCE: in no acute distress, pleasant. NECK: no carotid bruit, + jugular venous distention at angle of jaw. SKIN: no suspicious lesions, warm and dry. HEART: systolic murmur, regular rate and rhythm. LUNGS: clear to auscultation bilaterally. ABDOMEN: soft, nontender. Distended. EXTREMITIES: 2+ edema. PERIPHERAL PULSES: equal. NEUROLOGIC: No gross deficits, AAO X 3 Objective Labs and Meds Result diagrams: 07/29/21 08:06 07/29/21 08:06 Lab results: Laboratory Results - last 24 hr 07/28/21 07/29/21 07/29/21 10:43 08:06 08:06 WBC 4.0 L RBC 2.52 L Hgb 7.9 L Hct 24.5 L MCV 97.2 MCH 31.3 MCHC 32.2 RDW 17.1 H Plt Count 51 L MPV 10.0 Immature Gran % (Auto) 0.2 Neut % (Auto) 64.8 Lymph % (Auto) 16.9 L [place] % (Auto) 12.9 H Eos % (Auto) 4.7 H Baso % (Auto) 0.5 Lymph # (Auto) 0.7 L [place] # (Auto) 0.5 Eos # (Auto) 0.2 Baso # (Auto) 0.0 Abs Immat Gran (auto) 0.01 Absolute Neuts (auto) 2.6 Absolute Nucleated RBC 0.000 Nucleated RBC % (auto) 0.0 Sodium 128 L 129 L Potassium 3.9 4.6 Chloride 100 100 Carbon Dioxide 24 26 Anion Gap 8 L 8 L BUN 13 12 Creatinine 0.85 0.82 Estim Creat Clear Calc 109.7 113.7 Estimated GFR > 60 > 60 Random Glucose 132 H 75 D Calcium 8.3 L 8.4 Iron TIBC % Saturation Unsat Iron Binding Total Bilirubin Direct Bilirubin AST ALT Alkaline Phosphatase Total Protein Albumin Vitamin B12 Folate 07/29/21 07/29/21 08:06 08:06 WBC RBC Hgb Hct MCV MCH MCHC RDW Plt Count MPV Immature Gran % (Auto) Neut % (Auto) Lymph % (Auto) [place] % (Auto) Eos % (Auto) Baso % (Auto) Lymph # (Auto) [place] # (Auto) Eos # (Auto) Baso # (Auto) Abs Immat Gran (auto) Absolute Neuts (auto) Absolute Nucleated RBC Nucleated RBC % (auto) Sodium Potassium Chloride Carbon Dioxide Anion Gap BUN Creatinine Estim Creat Clear Calc Estimated GFR Random Glucose Calcium Iron 36 L TIBC 255 % Saturation 14 L Unsat Iron Binding 219 Total Bilirubin 3.3 H Direct Bilirubin 1.3 H AST 34 ALT 21 Alkaline Phosphatase 118 H Total Protein 6.2 L Albumin 2.0 L Vitamin B12 1208 H Folate 11.7 Assessment and Plan (1) Decompensated hepatic cirrhosis: Status: Acute (2) CHF (congestive heart failure): Status: Acute Plan Pleasant 56-year-old gentleman who is presenting for decompensated cirrhosis and volume overload. He had paracentesis performed. Clinically he is volume overloaded and he has significant JVD and signs of congestive heart failure also. I think he should be diuresed and agree with IV diuretics. He has more right-sided heart failure clinically at this point. Probably contributing to his edema in addition to cirrhosis. There is moderate pulmonic stenosis on the echocardiogram. He has high flow state due to cirrhosis and that probably is contributing to the gradient also year this will need follow-up by her should not be causing any clinical symptoms right now. Monitor electrolytes closely. Thank you for allowing me to participate in the care of your patient. Please feel free to contact me if you have any questions. Procedures Date of Service Date of Service: 07/29/21
[2021-07-29 13:19] VITALS: BP 125/69; PULSE 96; RESP 20; TEMP 37.5; O2SAT 98
--- NOTE | 2021-07-29 14:44 | P.PNIM_ITS ---
Subjective Subjective Date of Service: 07/29/21 Interval History: Seen and examined this morning Denies shortness of breath eager to return home Review of Systems Review of Systems: Yes all other systems are reviewed and are negative Constitutional Constitutional: Denies chills and Denies fever(s) Cardiovascular Cardiovascular: Denies chest pain, Denies palpitations and Denies dyspnea Respiratory Respiratory: Denies cough and Denies dyspnea Gastrointestinal Gastrointestinal: Denies abdominal pain Endocrine Endocrine: Denies palpitations Physical Exam Vital Signs: Vital Signs: Last Vital Signs Temp 99.5 F 07/29/21 13:19 Pulse 96 07/29/21 13:19 Resp 20 07/29/21 13:19 BP 125/69 07/29/21 13:19 Pulse Ox 98 07/29/21 13:19 BMI result Body Mass Index 38.8 Const: General: cooperative, alert and awake Nutritional Appearance: overweight Resp: Effort & Inspection: normal respiratory effort and able to speak in comp lete sentences Cardio: Rate: regular rate Heart sounds: Murmur heart sound present GI: Inspection: No distended Palpation (GI): Soft to palpation and nontender Extrem: Other: b/l leg edema Objective Data Active Medications Acetaminophen (Acetaminophen 325 Mg Tablet) 650 mg PO Q6H PRN PRN Reason: Pain, Mild (Pain Scale 1-3) Escitalopram Oxalate (Escitalopram Oxalate 10 Mg Tablet) 10 mg PO DAILY [facility] Last Admin: 07/29/21 09:04 Dose: 10 mg Documented by: ANSLEY Furosemide (Furosemide 40 Mg/4 Ml Vial) 40 mg IVPUSH BID@0900,1800 [facility]; Protocol Last Admin: 07/29/21 09:04 Dose: 40 mg Documented by: ANSLEY Lactulose (Lactulose 20 Gm/30 Ml Solution) 10 gm PO BID [facility] Last Admin: 07/29/21 09:04 Dose: 10 gm Documented by: ANSLEY Sodium Chloride (0.9 % Sodium Chloride Flush 3 Ml Syringe) 3 ml IVFLUSH QSHIFT [facility] Last Admin: 07/29/21 09:04 Dose: 3 ml Documented by: ANSLEY Spironolactone (Spironolactone 25 Mg Tablet) 100 mg PO DAILY [facility]; Protocol Last Admin: 07/29/21 09:04 Dose: 100 mg Documented by: ANSLEY Temazepam (Temazepam 15 Mg Capsule) 15 mg PO BEDTIME PRN PRN Reason: Insomnia Labs CBC & Chem 7: 07/29/21 08:06 07/29/21 08:06 Labs: Laboratory Results - last 24 hr 07/29/21 07/29/21 07/29/21 08:06 08:06 08:06 MCV 97.2 MCH 31.3 MCHC 32.2 RDW 17.1 H Plt Count 51 L MPV 10.0 Immature Gran % (Auto) 0.2 Neut % (Auto) 64.8 Lymph % (Auto) 16.9 L [place] % (Auto) 12.9 H Eos % (Auto) 4.7 H Baso % (Auto) 0.5 Lymph # (Auto) 0.7 L [place] # (Auto) 0.5 Eos # (Auto) 0.2 Baso # (Auto) 0.0 Abs Immat Gran (auto) 0.01 Absolute Neuts (auto) 2.6 Absolute Nucleated RBC 0.000 Nucleated RBC % (auto) 0.0 Anion Gap 8 L Estim Creat Clear Calc 113.7 Estimated GFR > 60 Random Glucose 75 D Calcium 8.4 Iron 36 L TIBC 255 % Saturation 14 L Unsat Iron Binding 219 Total Bilirubin 3.3 H Direct Bilirubin 1.3 H AST 34 ALT 21 Alkaline Phosphatase 118 H Total Protein 6.2 L Albumin 2.0 L Vitamin B12 Folate 07/29/21 08:06 MCV MCH MCHC RDW Plt Count MPV Immature Gran % (Auto) Neut % (Auto) Lymph % (Auto) [place] % (Auto) Eos % (Auto) Baso % (Auto) Lymph # (Auto) Edwards # (Auto) Eos # (Auto) Baso # (Auto) Abs Immat Gran (auto) Absolute Neuts (auto) Absolute Nucleated RBC Nucleated RBC % (auto) Anion Gap Estim Creat Clear Calc Estimated GFR Random Glucose Calcium Iron TIBC % Saturation Unsat Iron Binding Total Bilirubin Direct Bilirubin AST ALT Alkaline Phosphatase Total Protein Albumin Vitamin B12 1208 H Folate 11.7 Microbiology Microbiology Results: Microbiology 07/26/21 12:00 Gram Stain - Final Ascites Fluid Anaerobic Culture - Preliminary No growth to date. 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 He has not responded to outpatient changes to his regime and will now require IV diuretics. Fluid overload likely multifactorial secondary to ascites from liver cirrhosis/low albumin/ as well as probable component of diastolic CHF Will continue diuresis with IV Lasix Monitor Is&Os Probable diastolic chf echo showing preserved EF seen by cardiology agree with ongoing diuresis follow BMP Decompensated Cirrhosis significant fluid overload as evidenced by? ascites + generalized anasarca + >30 lb weight gain from baseline continue IV lasix 40mg BID; continue aldactone clinically no evidence of SBP, a 7.8 L out from paracentesis MELD score 15 US doppler to look at portal system - report pending LFTs trending down rec outpatient follow [place] wtih [place] [facility] Chronic normocytic anemia CB near baseline B12, folate wnl component of iron deficiency no overt bleeding noted stool occult pending recommend outpatient follow up with primary GI, consideration for EGD HypoNa. Slowly trending up likely hypervolemia Intake and output Consider Nephrology consult if worsens Thrombocytopenia chronic, due to end stage liver dz monitor Elevated ammonia no evidence of encephalopathy at this time continue baseline lactulose Obesity. BMI 41.8 Discussed the importance of weight management as this may be contributing to worsening of other comorbidities. Full Code DVT pptx, mechanical boots due to known esophageal varices + thrombocytopenia + coagulopathy Attending Dr. Pelayo Patient requires continued hospitalization For IV Lasix secondary to fluid overload and monitoring of electrolytes. there is also pending and abdominal ultrasound Doppler that patient needs to be inpatient for. Quality Stroke Does the patient have a stroke diagnosis?: No VTE Prior VTE?: No VTE Risk Level:: Medical - moderate - high VTE Device Contraindication: N/A - Device Ordered VTE Drug Contraindication: Treatment Not Indicated
[2021-07-29 15:51] VITALS: BP 104/66; PULSE 92; RESP 18; TEMP 36.7; O2SAT 98
[2021-07-29 18:47] LABS: OBS Int Ctl Valid YES; OBS1 POSITIVE (NEGATIVE)
[2021-07-29 23:46] VITALS: BP 128/67; PULSE 94; RESP 18; TEMP 36.9; O2SAT 97
[2021-07-30 06:34] LABS: Anion Gap 8 (12-20); Blood Urea Nitrogen 14 mg/dL (9-16); Calcium 8.1 mg/dL (8.4-10.2); Carbon Dioxide 25 mmol/L (22-29); Chloride 102 mmol/L (96-108); Creatinine Clr Calc Pharmacy 99.2; Estimated Glomerular Filt Rate > 60; Glucose Random 113 mg/dL (60-115); Potassium 4.1 mmol/L (3.3-5.1); Sodium 131 mmol/L (135-145)
[2021-07-30 06:50] VITALS: BP 105/52; PULSE 98; RESP 19; TEMP 35.5; O2SAT 98
[2021-07-30] MEDS: Escitalopram Oxalate 10 MG TABLET PO (08:43)
[2021-07-30] MEDS: Lactulose 20 GM/30 ML SOLUTION 10 GM PO ×2 (08:44→20:22)
[2021-07-30] MEDS: Furosemide 40 MG/4 ML VIAL IVPUSH (08:44)
[2021-07-30] MEDS: Spironolactone 25 MG TABLET 100 MG PO (08:44)
[2021-07-30] MEDS: 0.9 % Sodium Chloride Flush 3 ML SYRINGE IVFLUSH ×3 (08:45→23:49)
[2021-07-30 14:37] VITALS: BMI 37.4
--- NOTE | 2021-07-30 15:18 | P.PNCA_ITS ---
Subjective Subjective Date of Service: 07/30/21 Interval history: Still volume overloaded. Denying SOB or CP. Physical Exam Vital Signs: Last Vital Signs Temp 96 F L 07/30/21 06:50 Pulse 98 07/30/21 06:50 Resp 19 07/30/21 06:50 BP 105/52 L 07/30/21 06:50 Pulse Ox 98 07/30/21 06:50 BMI result Body Mass Index 37.4 GENERAL APPEARANCE: in no acute distress, pleasant. NECK: no carotid bruit, + jugular venous distention at angle of jaw. SKIN: no suspicious lesions, warm and dry. HEART: systolic murmur, regular rate and rhythm. LUNGS: clear to auscultation bilaterally. ABDOMEN: soft, nontender. Distended. EXTREMITIES: 2+ edema. PERIPHERAL PULSES: equal. NEUROLOGIC: No gross deficits, AAO X 3 Objective Labs and Meds Result diagrams: 07/29/21 08:06 07/30/21 05:29 Lab results: Laboratory Results - last 24 hr 07/29/21 07/30/21 18:30 05:29 Sodium 131 L Potassium 4.1 Chloride 102 Carbon Dioxide 25 Anion Gap 8 L BUN 14 Creatinine 0.94 Estim Creat Clear Calc 99.2 Estimated GFR > 60 Random Glucose 113 D Calcium 8.1 L Stool Occult Blood POSITIVE Imaging Radiologist's impression: Impressions Abdomen Ultrasound 07/28/21 18:31 IMPRESSION: Gallstones with mildly thickened gallbladder wall measuring 0.5 cm. Hepatic steatosis with small liver size. Diffuse ascites. The about composite findings are suspicious for cirrhosis Mild splenomegaly Doppler Study Ultrasound 07/28/21 18:31 IMPRESSION: Gallstones with mildly thickened gallbladder wall measuring 0.5 cm. Hepatic steatosis with small liver size. Diffuse ascites. The about composite findings are suspicious for cirrhosis Mild splenomegaly Comment: Echo: - Normal left ventricular size and systolic function. There is ? mildly increased left ventricular wall thickness.? The visually? estimated ejection fraction is between 60-65%. ? - Mildly increased right ventricular cavity size.? There is? ? ? normal right ventricular systolic function.? - The left atrium is severely dilated.? The right atrium is? ? ? normal in size.? - There is mild to moderate aortic valve stenosis. ? - There is moderate stenosis.? Peak PV gradient is calculated at 44 mmHg. ? - There is mild dilatation of the sinuses of Valsalva measuring? 3.90 cm and mild dilatation of the ascending aorta measuring 3.70 cm.? ?? Progress Note: A&P Assessment and plan (1) CHF (congestive heart failure): Status: Acute (2) Anasarca: Status: Acute (3) Ascites: Status: Acute (4) Cirrhosis of liver: Status: Acute Plan 56-year-old gentleman with known hepatic cirrhosis who is presenting with anasarca. he underwent paracentesis. I think he also has congestive heart failure with right more than left-sided failure at this point. He is significantly volume overloaded with distended neck veins, ascites and lower extremity edema. Echocardiography showed severely dilated left atrium, mildly increased right ventricular cavity size, moderate pulmonic stenosis with peak pulmonic valve gradient 44 mm Hg. Overall is clinically volume overloaded. I am increasing his furosemide to 80 mg IV b.i.d.. If he does not diurese well with that then we may have to add metolazone. He needs strict I's and O's monitoring. Monitor electrolytes closely. Thank you for allowing me to participate in the care of your patient. Please feel free to contact me if you have any questions. Fall Risk Details Current Medications: Current Medications Acetaminophen (Acetaminophen 325 Mg Tablet) 650 mg PO Q6H PRN PRN Reason: Pain, Mild (Pain Scale 1-3) Escitalopram Oxalate (Escitalopram Oxalate 10 Mg Tablet) 10 mg PO DAILY [facility] Last Admin: 07/30/21 08:43 Dose: 10 mg Documented by: Furosemide (Furosemide 40 Mg/4 Ml Vial) 40 mg IVPUSH BID@0900,1800 [facility]; Protocol Last Admin: 07/30/21 08:44 Dose: 40 mg Documented by: Lactulose (Lactulose 20 Gm/30 Ml Solution) 10 gm PO BID [facility] Last Admin: 07/30/21 08:44 Dose: 10 gm Documented by: Sodium Chloride (0.9 % Sodium Chloride Flush 3 Ml Syringe) 3 ml IVFLUSH QSHIFT [facility] Last Admin: 03/25/22 08:45 Dose: 3 ml Documented by: Spironolactone (Spironolactone 25 Mg Tablet) 100 mg PO DAILY [facility]; Protocol Last Admin: 07/30/21 08:44 Dose: 100 mg Documented by: Temazepam (Temazepam 15 Mg Capsule) 15 mg PO BEDTIME PRN PRN Reason: Insomnia Time Spent With Patient Time: Total time spent is greater than 50% in coordination of care (as documented) at patient's floor/unit and/or counseling patient: Progress Note: Quality Stroke Does the patient have a stroke diagnosis?: No Procedures Date of Service Date of Service: 07/30/21
[2021-07-30 15:26] VITALS: BP 123/66; PULSE 87; RESP 18; TEMP 36.3; O2SAT 98
[2021-07-30] MEDS: Furosemide 40 MG/4 ML VIAL 80 MG IVPUSH (15:41)
--- NOTE | 2021-07-30 16:18 | HO.PM.IMPN ---
Subjective Subjective Date of Service: 07/30/21 Interval History: seen and examined this morning patient wishes to go home, but after long conversation with patient and at bedside with the use of a underwriting support manager is understands he need more diuresis he denies any fever, chills, abdominal pain or shortness of breath Review of Systems Review of Systems: Yes all other systems are reviewed and are negative Constitutional Constitutional: Denies chills and Denies fever(s) Cardiovascular Cardiovascular: Denies chest pain, Denies palpitations and Denies dyspnea Respiratory Respiratory: Denies cough and Denies dyspnea Gastrointestinal Gastrointestinal: Denies abdominal pain, Denies nausea and Denies vomiting Endocrine Endocrine: Denies palpitations Physical Exam Vital Signs: Vital Signs: Last Vital Signs Temp 97.3 F 07/30/21 15:26 Pulse 87 07/30/21 15:26 Resp 18 07/30/21 15:26 BP 123/66 07/30/21 15:26 Pulse Ox 98 07/30/21 15:26 BMI result Body Mass Index 37.4 Const: General: cooperative, alert and awake Nutritional Appearance: overweight Orientation/consciousness: patient oriented x3 Resp: Effort & Inspection: normal respiratory effort and able to speak in complete sentences Cardio: Jugular venous distension: JVD Rate: regular rate Heart sounds: Murmur heart sound present GI: Other: softly distended Inspection: Yes obesity Palpation (GI): nontender Neuro: General: patient oriented x3 Extrem: Other: b/l pitting leg edema Objective Data Active Medications Acetaminophen (Acetaminophen 325 Mg Tablet) 650 mg PO Q6H PRN PRN Reason: Pain, Mild (Pain Scale 1-3) Escitalopram Oxalate (Escitalopram Oxalate 10 Mg Tablet) 10 mg PO DAILY [facility] Last Admin: 07/30/21 08:43 Dose: 10 mg Documented by: ESE Furosemide (Furosemide 40 Mg/4 Ml Vial) 80 mg IVPUSH BID@0900,1800 [facility]; Protocol Last Admin: 07/30/21 15:41 Dose: 80 mg Documented by: DONNYQC Lactulose (Lactulose 20 Gm/30 Ml Solution) 10 gm PO BID [facility] Last Admin: 07/30/21 08:44 Dose: 10 gm Documented by: ESE Sodium Chloride (0.9 % Sodium Chloride Flush 3 Ml Syringe) 3 ml IVFLUSH QSHIFT [facility] Last Admin: 07/30/21 15:41 Dose: 3 ml Documented by: DONNYQC Spironolactone (Spironolactone 25 Mg Tablet) 100 mg PO DAILY [facility]; Protocol Last Admin: 07/30/21 08:44 Dose: 100 mg Documented by: ESE Temazepam (Temazepam 15 Mg Capsule) 15 mg PO BEDTIME PRN PRN Reason: Insomnia Labs CBC & Chem 7: 07/29/21 08:06 07/30/21 05:29 Labs: Laboratory Results - last 24 hr 07/29/21 07/30/21 18:30 05:29 Anion Gap 8 L Estim Creat Clear Calc 99.2 Estimated GFR > 60 Random Glucose 113 D Calcium 8.1 L Stool Occult Blood POSITIVE Microbiology Microbiology Results: Microbiology 07/26/21 12:00 Gram Stain - Final Ascites Fluid Anaerobic Culture - Preliminary No growth to date. 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 He has not responded to outpatient changes to his regime and will now require IV diuretics. Fluid overload likely multifactorial secondary to ascites from liver cirrhosis/low albumin/ as well as component of CHF 7L removed with paracentesis and negative 4L via diuresis so far Will continue diuresis with IV Lasix Monitor Is&Os Acute HFpEF/right heart failure echo showing preserved EF cardiology following increase lasix to 80 bid monitor I&O, fluid restriction follow BMP Decompensated Cirrhosis significant fluid overload as evidenced by?ascites + generalized anasarca + >30 lb weight gain from baseline continue IV lasix; continue aldactone clinically no evidence of SBP, a 7.8 L out from paracentesis MELD score 15 US doppler to look at portal system - WNL LFTs trending down rec outpatient follow up wtih GI at [facility] Chronic normocytic anemia H/H near baseline B12, folate wnl component of iron deficiency no overt bleeding noted stool occult positive - recommend outpatient follow up with primary GI, consideration for EGD HypoNa. Slowly trending up likely hypervolemia Intake and output Consider Nephrology consult if worsens Thrombocytopenia chronic, due to end stage liver dz monitor Elevated ammonia no evidence of encephalopathy at this time continue baseline lactulose Obesity. BMI 41.8 Discussed the importance of weight management as this may be contributing to worsening of other comorbidities. Full Code DVT pptx, mechanical boots due to known esophageal varices + thrombocytopenia + coagulopathy Attending Dr. Pelayo Patient requires continued hospitalization For IV Lasix secondary to fluid overload/heart fialure and monitoring of electrolytes. Quality Stroke Does the patient have a stroke diagnosis?: No VTE Prior VTE?: No VTE Risk Level:: Medical - moderate - high VTE Device Contraindication: N/A - Device Ordered VTE Drug Contraindication: Treatment Not Indicated
[2021-07-30 23:49] VITALS: BP 118/68; PULSE 90; RESP 18; TEMP 36.9; O2SAT 99
[2021-07-31 06:46] LABS: Hematocrit 23.5 % (42.0-52.0); Hemoglobin 7.6 g/dl (14.0-18.0); Mean Corpuscular HGB Conc 32.3 g/dl (31.0-36.0); Mean Corpuscular Hemoglobin 31.3 pg (27.0-33.0); Mean Corpuscular Volume 96.7 fL (80.0-98.0); Mean Platelet Volume 10.8 fL (9.4-12.4); Red Blood Count 2.43 X10*6/uL (4.60-5.80); White Blood Count 3.8 X10*3/uL (4.8-10.8)
[2021-07-31 06:48] VITALS: BP 115/57; PULSE 88; RESP 18; TEMP 36.8; O2SAT 97
[2021-07-31 06:48] LABS: Platelet Count 53 X10*3/uL (160-400)
[2021-07-31 07:02] VITALS: BMI 37.1
[2021-07-31 07:27] LABS: Anion Gap 8 (12-20); Blood Urea Nitrogen 13 mg/dL (9-16); Carbon Dioxide 26 mmol/L (22-29); Chloride 102 mmol/L (96-108); Creatinine Clr Calc Pharmacy 116.8; Estimated Glomerular Filt Rate > 60; Glucose Random 72 mg/dL (60-115); Sodium 132 mmol/L (135-145)
[2021-07-31] MEDS: Spironolactone 25 MG TABLET 100 MG PO (07:52)
[2021-07-31] MEDS: Escitalopram Oxalate 10 MG TABLET PO (07:52)
[2021-07-31] MEDS: Lactulose 20 GM/30 ML SOLUTION 10 GM PO ×2 (07:52→20:43)
[2021-07-31] MEDS: Furosemide 40 MG/4 ML VIAL 80 MG IVPUSH ×2 (07:56→17:24)
[2021-07-31] MEDS: 0.9 % Sodium Chloride Flush 3 ML SYRINGE IVFLUSH ×3 (07:57→23:43)
--- NOTE | 2021-07-31 09:53 | P.PNCA_ITS ---
Subjective Subjective Date of Service: 07/31/21 Interval history: Still overloaded. Physical Exam Vital Signs: Last Vital Signs Temp 98.3 F 07/31/21 06:48 Pulse 88 07/31/21 06:48 Resp 18 07/31/21 06:48 BP 115/57 L 07/31/21 06:48 Pulse Ox 97 07/31/21 06:48 BMI result Body Mass Index 37.1 GENERAL APPEARANCE: in no acute distress, pleasant. NECK: no carotid bruit, + jugular venous distention. SKIN: no suspicious lesions, warm and dry. HEART: systolic murmur, regular rate and rhythm. LUNGS: clear to auscultation bilaterally. ABDOMEN: soft, nontender. Distended. EXTREMITIES: 1-2+ edema. PERIPHERAL PULSES: equal. NEUROLOGIC: No gross deficits, AAO X 3 Objective Labs and Meds Result diagrams: 07/31/21 05:51 07/31/21 05:51 Lab results: Laboratory Results - last 24 hr 07/31/21 07/31/21 05:51 05:51 WBC 3.8 L RBC 2.43 L Hgb 7.6 L Hct 23.5 L MCV 96.7 MCH 31.3 MCHC 32.3 RDW 17.0 H Plt Count 53 L MPV 10.8 Absolute Nucleated RBC 0.000 Nucleated RBC % (auto) 0.0 Sodium 132 L Potassium 4.0 Chloride 102 Carbon Dioxide 26 Anion Gap 8 L BUN 13 Creatinine 0.78 Estim Creat Clear Calc 116.8 Estimated GFR > 60 Random Glucose 72 D Calcium 8.0 L Imaging Radiologist's impression: Impressions Abdomen Ultrasound 07/28/21 18:31 IMPRESSION: Gallstones with mildly thickened gallbladder wall measuring 0.5 cm. Hepatic steatosis with small liver size. Diffuse ascites. The about composite findings are suspicious for cirrhosis Mild splenomegaly Doppler Study Ultrasound 07/28/21 18:31 IMPRESSION: Gallstones with mildly thickened gallbladder wall measuring 0.5 cm. Hepatic steatosis with small liver size. Diffuse ascites. The about composite findings are suspicious for cirrhosis Mild splenomegaly Progress Note: A&P Assessment and plan (1) CHF (congestive heart failure): Status: Acute Plan 56 male with cirrhosis and CHF. Clinically volume overloaded. c/w diuretics. Monitor electrolytes closely. Fall Risk Details Current Medications: Current Medications Acetaminophen (Acetaminophen 325 Mg Tablet) 650 mg PO Q6H PRN PRN Reason: Pain, Mild (Pain Scale 1-3) Escitalopram Oxalate (Escitalopram Oxalate 10 Mg Tablet) 10 mg PO DAILY [facility] Last Admin: 07/31/21 07:52 Dose: 10 mg Documented by: Furosemide (Furosemide 40 Mg/4 Ml Vial) 80 mg IVPUSH BID@0900,1800 [facility]; Protocol Last Admin: 07/31/21 07:56 Dose: 80 mg Documented by: Lactulose (Lactulose 20 Gm/30 Ml Solution) 10 gm PO BID [facility] Last Admin: 07/31/21 07:52 Dose: 10 gm Documented by: Sodium Chloride (0.9 % Sodium Chloride Flush 3 Ml Syringe) [facility] Last Admin: 07/31/21 07:57 Dose: 3 ml Documented by: Spironolactone (Spironolactone 25 Mg Tablet) 100 mg PO DAILY [facility]; Protocol Last Admin: 07/31/21 07:52 Dose: 100 mg Documented by: Time Spent With Patient Time: Total time spent is greater than 50% in coordination of care (as documented) at patient's floor/unit and/or counseling patient: Progress Note: Quality Stroke Does the patient have a stroke diagnosis?: No Procedures Date of Service Date of Service: 07/31/21
--- NOTE | 2021-07-31 11:20 | HO.PM.IMPN ---
Subjective Subjective Date of Service: 07/31/21 Interval History: seen and examined this morning denies shortness of breath or chest pain still with leg edema fluid overload Review of Systems Review of Systems: Yes all other systems are reviewed and are negative Constitutional Constitutional: Denies chills and Denies fever(s) Cardiovascular Cardiovascular: Denies chest pain, Denies palpitations and Denies dyspnea Respiratory Respiratory: Denies cough and Denies dyspnea Gastrointestinal Gastrointestinal: Denies abdominal pain, Denies nausea and Denies vomiting Endocrine Endocrine: Denies palpitations Physical Exam Vital Signs: Vital Signs: Last Vital Signs Temp 98.3 F 07/31/21 06:48 Pulse 88 07/31/21 06:48 Resp 18 07/31/21 06:48 BP 115/57 L 07/31/21 06:48 Pulse Ox 97 07/31/21 06:48 BMI result Body Mass Index 37.1 Const: General: cooperative, comfortable, alert and awake Nutritional Appearance: overweight Orientation/consciousness: patient oriented x3 Resp: Effort & Inspection: normal respiratory effort and able to speak in complete sentences Cardio: Rate: regular rate Heart sounds: S1 normal heart sound present and S2 normal heart sound present GI: Inspection: No distended Palpation (GI): Soft to palpation and nontender Neuro: Other: grossly non-focal General: patient oriented x3 Extrem: Other: b/l leg edema Objective Data Active Medications Acetaminophen (Acetaminophen 325 Mg Tablet) 650 mg PO Q6H PRN PRN Reason: Pain, Mild (Pain Scale 1-3) Escitalopram Oxalate (Escitalopram Oxalate 10 Mg Tablet) 10 mg PO DAILY [facility] Last Admin: 07/31/21 07:52 Dose: 10 mg Documented by: ESE Furosemide (Furosemide 40 Mg/4 Ml Vial) 80 mg IVPUSH BID@0900,1800 [facility]; Protocol Last Admin: 07/31/21 07:56 Dose: 80 mg Documented by: ESE Ferric Sodium Gluconate Complex 125 mg/ Sodium Chloride 110 mls @ 100 mls/hr IV ONCE ONE Stop: 07/31/21 12:17 Lactulose (Lactulose 20 Gm/30 Ml Solution) 10 gm PO BID [facility] Last Admin: 07/31/21 07:52 Dose: 10 gm Documented by: ESE Metolazone (Metolazone 2.5 Mg Tablet) 2.5 mg PO ONCE ONE Stop: 07/31/21 17:31 Sodium Chloride (0.9 % Sodium Chloride Flush 3 Ml Syringe) 3 ml IVFLUSH QSHIFT [facility] Last Admin: 07/31/21 07:57 Dose: 3 ml Documented by: ESE Spironolactone (Spironolactone 25 Mg Tablet) 100 mg PO DAILY [facility]; Protocol Last Admin: 07/31/21 07:52 Dose: 100 mg Documented by: ESE Labs CBC & Chem 7: 07/31/21 05:51 07/31/21 05:51 Labs: Laboratory Results - last 24 hr 07/31/21 07/31/21 05:51 05:51 MCV 96.7 MCH 31.3 MCHC 32.3 RDW 17.0 H Plt Count 53 L MPV 10.8 Absolute Nucleated RBC 0.000 Nucleated RBC % (auto) 0.0 Anion Gap 8 L Estim Creat Clear Calc 116.8 Estimated GFR > 60 Random Glucose 72 D Calcium 8.0 L Microbiology Microbiology Results: Microbiology 07/26/21 12:00 Gram Stain - Final Ascites Fluid Anaerobic Culture - Final NO GROWTH AFTER 5 DAYS Body Fluid Culture - Final No growth after 2 days Assessment and Plan (1) CHF (congestive heart failure): Status: Acute (2) Anemia: Status: Acute (3) Cirrhosis of liver: Status: Acute Plan This is a 56 year old male with a 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 He has not responded to outpatient changes to his regime and will now require IV diuretics. Fluid overload likely multifactorial secondary to ascites from liver cirrhosis/low albumin/ as well as component of CHF 7L removed with paracentesis and negative 5L via diuresis so far continue diuresis with IV Lasix Monitor Is&Os Acute HFpEF/right heart failure echo showing preserved EF cardiology following lasix increased to 80 bid; metolazone 2.5 today monitor I&O, fluid restriction follow BMP Decompensated Cirrhosis (CAZARES) followed by [facility] (on the transplant list) significant fluid overload as evidenced by?ascites + generalized anasarca + >30 lb weight gain from baseline continue IV lasix; continue aldactone clinically no evidence of SBP, a 7.8 L out from paracentesis MELD score 15 US doppler to look at portal system - WNL LFTs trending down rec outpatient follow [place] wt[place] GI [place] [facility] Chronic normocytic anemia H/H stable, near baseline B12, folate wnl component of iron deficiency no overt bleeding noted but stool occult positive - recommend outpatient follow up with primary GI team, consideration for EGD will give iron infusion HypoNa. Slowly trending up likely hypervolemia Intake and output Consider Nephrology consult if worsens Thrombocytopenia chronic, due to end stage liver dz monitor Elevated ammonia no evidence of encephalopathy at this time continue baseline lactulose Obesity. BMI 41.8 Discussed the importance of weight management as this may be contributing to worsening of other comorbidities. Full Code DVT pptx, early ambulation and mechanical boots due to known esophageal varices + thrombocytopenia + coagulopathy Attending Dr. Vasquez Patient requires continued hospitalization For IV Lasix secondary to fluid overload/heart failure and monitoring of electrolytes. Quality Stroke Does the patient have a stroke diagnosis?: No VTE Prior VTE?: No VTE Risk Level:: Medical - moderate - high VTE Device Contraindication: N/A - Device Ordered VTE Drug Contraindication: Treatment Not Indicated
[2021-07-31] MEDS: Sodium Ferric Gluconat/Sucrose 125 MG in 0.9 % Sodium Chloride 100 ML 100 MG IV (12:59)
[2021-07-31 15:07] VITALS: BP 116/59; PULSE 93; RESP 18; TEMP 37.2; O2SAT 98
[2021-07-31] MEDS: metOLazone 2.5 MG TABLET PO (16:14)
[2021-07-31 23:21] VITALS: BP 123/60; PULSE 91; RESP 16; TEMP 36.8; O2SAT 98
[2021-08-01 06:00] VITALS: BMI 36.8
[2021-08-01 06:52] VITALS: BP 100/52; PULSE 92; RESP 18; TEMP 36.6; O2SAT 97
[2021-08-01] MEDS: Lactulose 20 GM/30 ML SOLUTION 10 GM PO (08:38)
[2021-08-01] MEDS: Spironolactone 25 MG TABLET 100 MG PO (08:38)
[2021-08-01] MEDS: Escitalopram Oxalate 10 MG TABLET PO (08:38)
[2021-08-01] MEDS: 0.9 % Sodium Chloride Flush 3 ML SYRINGE IVFLUSH (08:39)
[2021-08-01] MEDS: Furosemide 40 MG/4 ML VIAL 80 MG IVPUSH (08:39)
[2021-08-01 08:55] LABS: Anion Gap 8 (12-20); Blood Urea Nitrogen 14 mg/dL (9-16); Calcium 8.1 mg/dL (8.4-10.2); Carbon Dioxide 26 mmol/L (22-29); Chloride 100 mmol/L (96-108); Creatinine Clr Calc Pharmacy 109.3; Estimated Glomerular Filt Rate > 60; Glucose Random 73 mg/dL (60-115); Sodium 130 mmol/L (135-145)
--- NOTE | 2021-08-01 11:46 | PM.PNCARD ---
Subjective Subjective Date of Service: 08/01/21 Interval history: Seen and examined. Still overloaded, wants to go home. Physical Exam Vital Signs: Last Vital Signs Temp 97.9 F 08/01/21 06:52 Pulse 92 08/01/21 06:52 Resp 18 08/01/21 06:52 BP 100/52 L 08/01/21 06:52 Pulse Ox 97 08/01/21 06:52 BMI result Body Mass Index 36.8 GENERAL APPEARANCE: in no acute distress, pleasant. NECK: no carotid bruit, + jugular venous distention. SKIN: no suspicious lesions, warm and dry. HEART: systolic murmur, regular rate and rhythm. LUNGS: clear to auscultation bilaterally. ABDOMEN: soft, nontender. Distended. EXTREMITIES: 1+ edema. PERIPHERAL PULSES: equal. NEUROLOGIC: No gross deficits, AAO X 3 Objective Labs and Meds Result diagrams: 07/31/21 05:51 08/01/21 08:01 Lab results: Laboratory Results - last 24 hr 08/01/21 08:01 Sodium 130 L Potassium 4.0 Chloride 100 Carbon Dioxide 26 Anion Gap 8 L BUN 14 Creatinine 0.83 Estim Creat Clear Calc 109.3 Estimated GFR > 60 Random Glucose 73 Calcium 8.1 L Progress Note: A&P Assessment and plan (1) CHF (congestive heart failure): Status: Acute Plan 56 male with cirrhosis and CHF. Still overloaded mildly but improving. Change to Torsemide 20 mg BID. c/w spironolactone. Can discharge home. Check BMP in 3-5 days. Fall Risk Details Current Medications: Current Medications Acetaminophen (Acetaminophen 325 Mg Tablet) 650 mg PO Q6H PRN PRN Reason: Pain, Mild (Pain Scale 1-3) Escitalopram Oxalate (Escitalopram Oxalate 10 Mg Tablet) 10 mg PO DAILY [facility] Last Admin: 08/01/21 08:38 Dose: 10 mg Documented by: Furosemide (Furosemide 40 Mg/4 Ml Vial) 80 mg IVPUSH BID@0900,1800 [facility]; Protocol Last Admin: 08/01/21 08:39 Dose: 80 mg Documented by: Lactulose (Lactulose 20 Gm/30 Ml Solution) 10 gm PO BID [facility] Last Admin: 08/01/21 08:38 Dose: 10 gm Documented by: Sodium Chloride (0.9 % Sodium Chloride Flush 3 Ml Syringe) 3 ml IVFLUSH QSHIFT [facility] Last Admin: 08/01/21 08:39 Dose: 3 ml Documented by: Spironolactone (Spironolactone 25 Mg Tablet) 100 mg PO DAILY [facility]; Protocol Last Admin: 08/01/21 08:38 Dose: 100 mg Documented by: Time Spent With Patient Time: Total time spent is greater than 50% in coordination of care (as documented) at patient's floor/unit and/or counseling patient: Progress Note: Quality Stroke Does the patient have a stroke diagnosis?: No Procedures Date of Service Date of Service: 08/01/21
--- NOTE | 2021-08-01 12:16 | MHC.CM.PN ---
PT TO DC HOME TODAY WITH MICHEAL BRENNANA FOR CHF MANAGEMENT FAMILY TO TRANSPORT
--- NOTE | 2021-08-01 12:28 | P.F2F_ITS ---
Service Date Service Date: 08/01/21 Encounter Date of encounter: 08/01/21 Reasons for Services Signs and symptoms assessed: cirrhosis, chf, chronic leg chuck CHF disease management Assess vital signs Med reconciliation Reason for care home: medication management and teach disease management MD Overseeing Care: Miroslava Murphy Homebound: Leaving the home is medically contraindicated at this time without the asist of a device and/or another person due th the listed conditions above and below. Reason homebound: weakness related to hospital stay Certification: Based on the above findings, I certify that this patient is confined to the home and needs intermittent care home care, physical therapy and/or speech therapy, or continues to need occupational therapy. The patient is under my care, and I have initiated the establishment of the plan of care. The patient will be followed by a physician who will periodically review the plan of care.
--- NOTE | 2021-08-01 12:29 | P.DS_ITS ---
DS: Providers Provider Date of Service: 08/01/21 Date of admission: 07/26/21 09:12 Date of discharge: 08/01/21 Primary care physician: Miroslava Murphy MD Consults: 07/28/21 14:20 Consult to Cardiology Routine Consulting Provider: Ta Patricio Reason for consultation: fluid overload, liver disease Has provider been notified: No Attending physician on discharge: Royer Braun Discharging clinician: Colleen Michel DS: Diagnosis Discharge Diagnosis (1) CHF (congestive heart failure): Status: Acute DS: Summary Hospital Course Hospital Course: From H&P on day of admission This is a 56 year old male with a PMH of 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 Apparently, the patient had a PCP visit several days prior to admission at which point his diuretic dosing was increased and he was placed on further fluid restriction. Despite these efforts, he continues to retain fluid and gain weight. On further questioning, he does endorse dietary indiscretion, stating that he has been eating foods with higher salt content (pork, chips, etc). He denies any abdominal pain, nausea, vomiting, diarrhea. He denies any fevers and chills.? He reports that his baseline weight for the previous year was about 217 lbs, but today's weight is >250 lbs. He reports compliance with his medications including diuretics + lactulose. He reports 2-3 bowel movements daily. He appears to be regretting his dietary indiscretions. Upon arrival to the ED, the patient was ntoed to have generalized anasarca. A CT scan of the abd/pelvis revealed significant ascites. Admission is requested for further treatment. COVID vaccination status -- immunized with 3 doses of mRNA vaccine Hospital course by problem: Fluid overload likely multifactorial secondary to ascites from liver cirrhosis/low albumin/ as well as component of CHF. 7L removed with paracentesis and negative almost 7L via diuresis. Patient was educated on the importance of low-sodium diet as well as restricting fluid intake. Acute HFpEF/right heart failure. echo showing preserved EF. He was started on IV Lasix for diuresis. He was seen in consultation by cardiology. IV lasix increased to 80 bid with good effect. Patient has diuresed nearly 7 L. Cardiology recommended to discontinue Lasix on discharge can start torsemide twice daily. BMP will be checked at the end of the week. Patient is encouraged to continue low-sodium diet and fluid restriction as above. He is encouraged to weigh himself daily and call to schedule follow-up with Cardiology. Decompensated Cirrhosis (CAZARES) followed by [facility] (on the transplant list) diuresed as above with IV Lasix and continued on home dose of Aldactone. He underwent paracentesis with nearly 8 L of fluid removed. No evidence of SBP. US doppler to look at portal system was WNL. LFTs trended down. Rec outpatient follow up wtih GI at [facility] Chronic normocytic anemia. H/H stable, near baseline. B12, folate wnl. Labs did show component of iron deficiency. He received iron transfusion and will be started on oral iron supplementation. No overt bleeding noted but stool occult positive. Patient was seen in consultation by GI who recommended outpatient follow up with primary GI team at [facility] for consideration of EGD. Monitor for any signs of bleeding and avoid NSAIDs. Hyponatremia. Appears to be chronic did trend up somewhat with diuresis. Patient will be discharged home with home VNA services for CHF Education, med reconciliation. The above was discussed with the patient as in detail. The patient is stable for discharge and eager to return home. Time Spent with Patient Time attestation: Total time spent providing and/or coordinating discharge services: Discharge coordination time: Greater than 30 minutes Quality: Stroke Does the patient have a stroke diagnosis?: No Physical Exam Vital Signs: Vital Signs: Last Vital Signs Temp 97.9 F 08/01/21 06:52 Pulse 92 08/01/21 06:52 Resp 18 08/01/21 06:52 BP 100/52 L 08/01/21 06:52 Pulse Ox 97 08/01/21 06:52 BMI result Body Mass Index 36.8 Const: General: cooperative, comfortable, alert and awake Nutritional Appearance: overweight Orientation/consciousness: patient oriented x3 Resp: Effort & Inspection: normal respiratory effort and able to speak in complete sentences Cardio: Rate: regular rate Heart sounds: S1 normal heart sound present, S2 normal heart sound present and Murmur heart sound present GI: Inspection: No distended and Yes obesity Palpation (GI): Soft to palpation and nontender Neuro: Other: grossly non-focal General: patient oriented x3 Extrem: Other: b/l leg edema DS: Data Data Completed and Pending Labs on day of discharge: Laboratory Results - last 24 hr 08/01/21 08:01 Sodium 130 L Potassium 4.0 Chloride 100 Carbon Dioxide 26 Anion Gap 8 L BUN 14 Creatinine 0.83 Estim Creat Clear Calc 109.3 Estimated GFR > 60 Random Glucose 73 Calcium 8.1 L Discharge Plan Discharge Patient Disposition: Home Health Service Discharge Diagnosis: CHF cirrhosis anemia Referrals: Lashay MCLAUGHLIN [Outside] - 1 Week Ta Patricio MD [Physician] - 1 Week Miroslava Murphy MD [Primary Care Provider] - 1 Week Discharge Medications: New torsemide 20 mg tablet 20 mg PO BID 30 Days Qty: 60 0RF ferrous sulfate [Iron (ferrous sulfate)] 325 mg (65 mg iron) tablet 325 mg PO DAILY 30 Days Qty: 30 0RF Continued spironolactone 100 mg tablet 1 tab PO DAILY 0RF Hold Instructions: Resume on 07/02/21. temazepam 15 mg capsule 1 cap PO BEDTIME PRN (Reason: Insomnia) 0RF escitalopram oxalate 10 mg tablet 1 tab PO DAILY 0RF lactulose [Constulose] 10 gram/15 mL solution 15 ml PO BID 0RF Discontinued furosemide 40 mg tablet 1 tab PO DAILY 0RF Hold Instructions: Resume on 07/02/21. If sodium is still below 130 continue to hold and follow up with primary care provider prior to restarting Rx Instructions: takes with furosemide 20 mg furosemide 20 mg tablet 1 tab PO DAILY 0RF Hold Instructions: Resume on 07/02/21. Resume on 07/02/21. If sodium is still below 130 continue to hold and follow up with primary care provider prior to restarting Discharge Orders: Discharge Order (Routine); Ordered 08/01/21 Ordered By: Colleen Michel Diet: low salt diet Activity on Discharge: As tolerated Stand Alone Forms: Patient Portal Discharge page Other Ambulatory Orders: Basic Metabolic Panel (Routine) Timeframe: [id number] Facility: [facility] - Location: Laboratory Ordered By: Colleen Michel Care Plan Goals: see below Health Concerns: Heart failure Liver cirrhosis Hyponatremia Anemia Plan of Treatment: CHF - Start taking torsemide Stop taking Lasix Follow low sodium diet, minimize fluid intake to around 1L daily Weigh yourself daily Call to schedule follow up appointment with cardiology Repeat lab work next week Anemia - Avoid aspirin, NSAIDs (ibuprofen, motrin etc) Monitor for signs of bleeding Start taking iron supplement Call to schedule 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
== END 2021-08-01 15:00 | disposition home health service (06) ==
LOC: HO.ED 07-26 05:44 → HO.EDOVER 07-26 09:20 → HO.S3 07-26 15:07
PROVIDERS: Radiology Diagnostic Radiology; Admitting Provider Family Medicine; Emergency Provider Student in an Organized Health Care Education/Training Program; PCP Student in an Organized Health Care Education/Training Program; Visit Provider Physician Assistant Medical
PROC: 0W9G3ZZ Drainage of Peritoneal Cavity, Percutaneous Approach (ICD-10-PCS; principal; 2021-07-26 11:00)
DX: K75.81 Nonalcoholic steatohepatitis (NASH) (principal); I50.33 Acute on chronic diastolic (congestive) heart failure; K72.90 Hepatic failure, unspecified without coma; R18.8 Other ascites; I85.10 Secondary esophageal varices without bleeding; E87.1 Hypo-osmolality and hyponatremia; K74.60 Unspecified cirrhosis of liver; D69.59 Other secondary thrombocytopenia; D50.9 Iron deficiency anemia, unspecified; E66.9 Obesity, unspecified; Z68.41 Body mass index [BMI] 40.0-44.9, adult; Z20.822 Contact with and (suspected) exposure to COVID-19; Z91.013 Allergy to seafood; Z79.899 Other long term (current) drug therapy
CPT/HCPCS: 36415; 49083; 74176; 76700; 80048; 80053; 80076; 82140; 82248; 82272; 82607; 82746; 83540; 83880; 85025; 85027; 85610; 87070; 87073; 87205; 87635; 89051; 93306; 93975; 99285; J1940; J2916; P9047

== ENCOUNTER 2021-08-13 19:49 | Emergency (ER) | payer MEDICAID, SELFPAY ==
--- NOTE | ~2021-08-13 | XR_ITS ---
EXAMINATION: XR CHEST CLINICAL INFORMATION: Lower extremity swelling. COMPARISON: Chest x-ray 04/29/2020. CT scan abdomen pelvis 07/26/2021 TECHNIQUE: Frontal view of the chest was obtained. FINDINGS: No significant abnormality is noted involving the heart, lungs, mediastinum, bony thorax or soft tissues. Moderate-sized hiatal hernia. XR/XR chest 1V IMPRESSION: Unremarkable examination.
[2021-08-13 21:00] VITALS: BP 122/61; PULSE 84; RESP 18; TEMP 36.8; O2SAT 98; BMI 36.8
--- NOTE | 2021-08-13 21:15 | ECG_ITS ---
Test Reason : DYSPNEA Blood Pressure : / mmHG Vent. Rate : 086 BPM Atrial Rate : 086 BPM P-R Int : 156 ms QRS Dur : 096 ms QT Int : 402 ms P-R-T Axes : 056 012 056 degrees QTc Int : 481 ms Normal sinus rhythm Prolonged QT Abnormal ECG When compared with ECG of 21-FEB-2020 11:54, No significant change was found Referred By: Generic ED Physician Electronically Signed By:ALIZA CROWLEY MD
[2021-08-13 21:51] LABS: MANUAL DIFF FLAG NO
[2021-08-13 21:52] LABS: Basophils Percent Auto 0.6 % (0-2); Eosinophils Absolute Auto 0.1 X10*3/uL (0.0-0.4); Eosinophils Percent Auto 1.7 % (0-4); Hematocrit 27.2 % (42.0-52.0); Hemoglobin 8.9 g/dl (14.0-18.0); Imm Gran Abs Auto 0.04 X10*3/uL (0.00-0.03); Imm Gran Pct Auto 0.9 % (0.0-0.4); Lymphocytes Absolute Auto 0.6 X10*3/uL (1.2-4.9); Lymphocytes Percent Auto 12.9 % (20-40); Mean Corpuscular HGB Conc 32.7 g/dl (31.0-36.0); Mean Corpuscular Hemoglobin 31.6 pg (27.0-33.0); Mean Corpuscular Volume 96.5 fL (80.0-98.0); Mean Platelet Volume 10.2 fL (9.4-12.4); Monocytes Absolute Auto 0.5 X10*3/uL (0.1-1.2); Monocytes Percent Auto 11.6 % (2-11); Neutrophils Absolute Auto 3.4 x10*3/uL (2.0-8.3); Neutrophils Percent Auto 72.3 % (45-73); Red Blood Count 2.82 X10*6/uL (4.60-5.80); White Blood Count 4.7 X10*3/uL (4.8-10.8)
[2021-08-13 22:04] LABS: Anion Gap 9 (12-20); Blood Urea Nitrogen 13 mg/dL (9-16); Calcium 7.9 mg/dL (8.4-10.2); Carbon Dioxide 25 mmol/L (22-29); Chloride 96 mmol/L (96-108); Creatinine Clr Calc Pharmacy 102.9; Estimated Glomerular Filt Rate > 60; Glucose Random 93 mg/dL (60-115); Potassium 4.3 mmol/L (3.3-5.1); Sodium 126 mmol/L (135-145)
[2021-08-13 22:10] LABS: Platelet Count 58 X10*3/uL (160-400); Troponin-I High Sensitivity 5.1 ng/L (<3.5-35.0)
[2021-08-14 00:44] LABS: B Type Natriuretic Peptide 21 pg/mL (<100)
--- NOTE | 2021-08-14 01:06 | ED_ITS ---
HPI - General Adult General Chief complaint: General Medical Stated complaint: general med Time Seen by Provider: 08/14/21 00:14 Source: patient, family ( spouse) and paraprofessional interpreter Mode of arrival: ambulatory Limitations: no limitations History of Present Illness HPI narrative: 56-year-old male history of liver cirrhosis came in Because visiting nurse wanted him to be checked in the emergency department, patient has no symptoms. Patient has a chronic ascites fluid secondary to hepatic cirrhosis, last drainage with about 10 days ago, patient was sent by visiting nurse Because she could not draw blood today and for evaluation of increased 6 lb in the last week however patient has no abdominal pain or abdominal distension, no shortness of breath, no fever. Related Data Home Medications Medication Instructions Recorded Confirmed escitalopram oxalate 10 mg tablet 1 tab PO DAILY 06/23/21 07/26/21 lactulose 10 gram/15 mL oral 15 ml PO BID 06/23/21 07/26/21 solution (Constulose) spironolactone 100 mg tablet 1 tab PO DAILY 06/23/21 07/26/21 temazepam 15 mg capsule 1 cap PO BEDTIME PRN 06/23/21 07/26/21 Previous Rx's Medication Instructions Recorded ferrous sulfate 325 mg (65 mg 325 mg PO DAILY 30 Days #30 tab 08/01/21 iron) tablet (Iron (ferrous sulfate)) torsemide 20 mg tablet 20 mg PO BID 30 Days #60 tab 08/01/21 Allergies Allergy/AdvReac Type Severity Reaction Status Date / Time seafood Allergy Unknown Verified 06/23/20 18:40 Review of Systems Review of Systems: all other systems are reviewed and are negative Constitutional: Reports as per HPI and Reports no additional constitutional complaints Eyes: Reports as per HPI and Reports no additional eye complaints Reports system reviewed and no additional complaints, except as documented Cardiovascular: Reports as per HPI and Reports no additional cardiovascular complaints Respiratory: Reports as per HPI and Reports no additional respiratory complaints Gastrointestinal: Reports as per HPI and Reports no additional gastrointestinal complaints Genitourinary: Reports no additional female genitourinary complaints Musculoskeletal: Reports no additional musculoskeletal complaints Skin/Breast: Reports system reviewed and no additional complaints, except as docu Psychiatric: Reports no additional psychiatric complaints Endocrine: Reports no additional endocrine complaints Hematologic/Lymphatic: Reports no additional hematologic/lymphatic complaints Allergic/Immunologic: Reports no additional allergic/immunologic complaints Reports system reviewed and no additional complaints, except as documented and Reports Abnormal speech present PMFSH Past Medical History Medical History Brain lesion CHF (congestive heart failure) Cirrhosis of liver Hepatic cirrhosis Hepatic encephalopathy Liver cirrhosis Social History Social History Household Members: Spouse Housing: House Do you presently have visiting nurse or other home services: No Alcohol intake: never Patient Tobacco Use Status: Never used Tobacco e-Cigarette/Vaping Use: Never Used Advance Directives: Yes Advance Directives on File: Yes Advance Directives Date on File: 06/24/21 service: No Current occupational status: disabled Physical Exam ED Vital Signs: Vital Signs - 24 hr 08/13/21 21:00 Temperature 98.3 F Pulse Rate 84 Respiratory Rate 18 Blood Pressure 122/61 Pulse Oximetry 98 BMI result Body Mass Index 36.8 vital signs have been reviewed as appeared to be correct. Blood pressure normal. Heart rate normal. Respiration rate normal. Temperature normal. Oxygen saturation normal. Appearance: Alert. Oriented X3. No acute distress. Head: Normal external exam. Normocephalic. Atraumatic. No John signs noted. No raccoon eyes noted Eyes: PERRLA. EOMI. Conjunctiva and sclera normal. Eyelids normal. ENT: TM's Normal. Pharynx normal. Uvula midline. Moist mucous membranes. No trismus noted. No drooling noted. No muffled voice noted. Neck: Normal inspection. Neck supple. FROM. No adenopathy. Thyroid Normal. No meningeal signs. No neck mass noted. CVS: Normal heart rate and rhythm. Heart sound normal. No murmurs noted. Pulses normal throughout. Respiratory: No respiratory distress. Painless inspiration. Breath sounds normal. No wheezes/rales/rhonchi noted. Chest nontender. No accessory muscle usage noted or decreased air movement noted. Abdomen: Soft, mildly distended, no tenderness, no rebound tenderness, no guarding. Bowel sounds normal in all 4 quadrants. No distention noted. No organomegaly noted. No visible injury noted. Back: No CVA tenderness. Full range of motion noted. Skin: Skin warm and dry. Normal skin color. Normal skin turgor. No ra shes/lesions/lacerations noted. Extremities: No lower extremity edema. Extremities exhibit normal range of motion. Extremities nontender. Neuro: Oriented X 3. Cranial nerve exam: II-XII are grossly intact No motor deficit. No sensory deficit. Reflexes normal. Course Course Course Narrative: Assessment and plan. Patient was sent by visiting nurse for evaluated in the emergency department because she could not get his routine blood withdrawal at home today, patient with chronic liver cirrhosis and ascites had recent ascites drainage 2 weeks ago, there is no clinical indication for paracentesis today patient has no shortness of breath, no abdominal pain, no fever. Labs at his normal baseline of chronic hyponatremia and chronic anemia. Will discharge to follow-up with his PCP. Medical Decision Making Medical Records Medical records reviewed: Yes I reviewed the patient's medical records. Lab Data Lab results reviewed: Yes I reviewed the patient's lab results. Result diagrams: 08/13/21 21:42 08/13/21 21:42 Labs: Lab Results 08/13/21 08/13/21 08/13/21 Range/Units 21:42 21:42 21:42 WBC 4.7 L (4.8-10.8) X10*3/uL RBC 2.82 L (4.60-5.80) X10*6/uL Hgb 8.9 L (14.0-18.0) g/dl Hct 27.2 L (42.0-52.0) % MCV 96.5 (80.0-98.0) fL MCH 31.6 (27.0-33.0) pg MCHC 32.7 (31.0-36.0) g/dl RDW 18.0 H (11.0-16.0) % Plt Count 58 L (160-400) X10*3/uL MPV 10.2 (9.4-12.4) fL Immature Gran % (Auto) 0.9 H (0.0-0.4) % Neut % (Auto) 72.3 (45-73) % Lymph % (Auto) 12.9 L (20-40) % Henry % (Auto) 11.6 H (2-11) % Eos % (Auto) 1.7 (0-4) % Baso % (Auto) 0.6 (0-2) % Lymph # (Auto) 0.6 L (1.2-4.9) X10*3/uL Henry # (Auto) 0.5 (0.1-1.2) X10*3/uL Eos # (Auto) 0.1 (0.0-0.4) X10*3/uL Baso # (Auto) 0.0 (0.0-0.2) X10*3/uL Abs Immat Gran (auto) 0.04 H (0.00-0.03) X10*3/uL Absolute Neuts (auto) 3.4 (2.0-8.3) x10*3/uL Absolute Nucleated RBC 0.000 (0.0-0.012) X10*3/uL Nucleated RBC % (auto) 0.0 (0.0-0.2) /100WBC Sodium 126 L (135-145) mmol/L Potassium 4.3 (3.3-5.1) mmol/L Chloride 96 (96-108) mmol/L Carbon Dioxide 25 (22-29) mmol/L Anion Gap 9 L (12-20) BUN 13 (9-16) mg/dL Creatinine 0.91 (0.5-1.4) mg/dL Estim Creat Clear Calc 102.9 Estimated GFR > 60 Random Glucose 93 (60-115) mg/dL Calcium 7.9 L (8.4-10.2) mg/dL Troponin I High Sens 5.1 (<3.5-35.0) ng/L B-Natriuretic Peptide 21 (<100) pg/mL Imaging Data Chest x-ray: Attestation: I personally reviewed and interpreted this imaging study as f lisset: Radiologist's impression: Unremarkable examination. Discharge Plan Discharge Clinical Impression: Hyponatremia, Anasarca Patient Disposition: Home, Self-Care Instructions: Edema (ED), Cirrhosis (ED) Prescriptions: No Action torsemide 20 mg tablet 20 mg PO BID 30 Days Qty: 60 0RF ferrous sulfate [Iron (ferrous sulfate)] 325 mg (65 mg iron) tablet 325 mg PO DAILY 30 Days Qty: 30 0RF spironolactone 100 mg tablet 1 tab PO DAILY 0RF Hold Instructions: Resume on 07/02/21. temazepam 15 mg capsule 1 cap PO BEDTIME PRN (Reason: Insomnia) 0RF escitalopram oxalate 10 mg tablet 1 tab PO DAILY 0RF lactulose [Constulose] 10 gram/15 mL solution 15 ml PO BID 0RF Referrals: Physician,Unknown J [Primary Care Provider] -
[2021-08-14 01:34] VITALS: BP 130/68; PULSE 78; RESP 18; O2SAT 98
== END 2021-08-14 01:37 | disposition home or self-care (01) ==
PROVIDERS: Emergency Provider Emergency Medicine
DX: E87.1 Hypo-osmolality and hyponatremia (principal); R60.1 Generalized edema; K74.60 Unspecified cirrhosis of liver; I50.9 Heart failure, unspecified
CPT/HCPCS: 36415; 71045; 80048; 83880; 84484; 85025; 93005; 99283

== ENCOUNTER 2021-10-12 12:29 | Emergency (ER) | payer MEDICAID, SELFPAY ==
--- NOTE | ~2021-10-12 | XR_ITS ---
EXAMINATION: XR CHEST CLINICAL INFORMATION: Generalized weakness, rule out pneumonia. COMPARISON: 08/13/2021 chest radiograph TECHNIQUE: Frontal view of the chest was obtained. FINDINGS: No significant abnormality is noted involving the heart, lungs, mediastinum, bony thorax or soft tissues. XR/XR chest 1V IMPRESSION: No acute cardiopulmonary process.
--- NOTE | 2021-10-12 12:41 | ECG_ITS ---
Test Reason : generalized weakness Blood Pressure : / mmHG Vent. Rate : 103 BPM Atrial Rate : 103 BPM P-R Int : 112 ms QRS Dur : 096 ms QT Int : 362 ms P-R-T Axes : 036 016 043 degrees QTc Int : 474 ms Sinus tachycardia Otherwise normal ECG When compared with ECG of 13-AUG-2021 21:28, No significant change was found Referred By: Teo Carroll Electronically Signed By:SEBAS WHITE
--- NOTE | 2021-10-12 12:43 | ED_ITS ---
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 Patient otherwise declined any fever, chills, no headache, no abdominal pain. Reportedly by EMS patient had 1 reading of hypotension at the PCP office, patient has no hypotension in the ED or in route by EMS. Related Data Home Medications Medication Instructions Recorded Confirmed escitalopram oxalate 10 mg tablet 1 tab PO DAILY 06/23/21 10/12/21 lactulose 10 gram/15 mL oral 15 ml PO BID 06/23/21 10/12/21 solution (Constulose) spironolactone 100 mg tablet 1 tab PO DAILY 06/23/21 10/12/21 temazepam 15 mg capsule 1 cap PO BEDTIME PRN 06/23/21 10/12/21 Previous Rx's Medication Instructions Recorded ferrous sulfate 325 mg (65 mg 325 mg PO DAILY 30 Days #30 tab 08/01/21 iron) tablet (Iron (ferrous sulfate)) torsemide 20 mg tablet 20 mg PO BID 30 Days #60 tab 08/01/21 Allergies Allergy/AdvReac Type Severity Reaction Status Date / Time seafood Allergy Unknown Verified 10/12/21 12:45 Review of Systems Review of Systems: All other systems are reviewed and are negative Constitutional: Reports as per HPI and Reports no additional constitutional complaints Eyes: Reports as per HPI and Reports no additional eye complaints Reports system reviewed and no additional complaints, except as documented Cardiovascular: Reports as per HPI and Reports no additional cardiovascular complaints Respiratory: Reports as per HPI and Reports no additional respiratory complaints Gastrointestinal: Reports as per HPI and Reports no additional gastrointestinal complaints Genitourinary: Reports no additional female genitourinary complaints Musculoskeletal: Reports no additional musculoskeletal complaints Skin/Breast: Reports system reviewed and no additional complaints, except as d ocu Psychiatric: Reports no additional psychiatric complaints Endocrine: Reports no additional endocrine complaints Hematologic/Lymphatic: Reports no additional hematologic/lymphatic complaints Allergic/Immunologic: Reports no additional allergic/immunologic complaints Reports system reviewed and no additional complaints, except as documented and Reports Abnormal speech present PMFSH Past Medical History Medical History Brain lesion CHF (congestive heart failure) Cirrhosis of liver Hepatic cirrhosis Hepatic encephalopathy Liver cirrhosis Social History Social History Household Members: Spouse Housing: House Do you presently have visiting nurse or other home services: No Alcohol intake: never Patient Tobacco Use Status: Never used Tobacco e-Cigarette/Vaping Use: Never Used Advance Directives: Yes Advance Directives on File: Yes Advance Directives Date on File: 06/24/21 service: No Current occupational status: disabled Physical Exam ED Vital Signs: Vital Signs - 24 hr 10/12/21 12:46 Temperature 98.3 F Pulse Rate 100 Respiratory Rate 18 Blood Pressure 131/68 Pulse Oximetry 98 BMI result Body Mass Index 40.4 Vital signs have been reviewed as appeared to be correct. Blood pressure normal. Heart rate normal. Respiration rate normal. Temperature normal. Oxygen saturation normal. Appearance: Alert. Oriented X3. No acute distress. Head: Normal external exam. Normocephalic. Atraumatic. No John signs noted. No raccoon eyes noted Eyes: PERRLA. EOMI. Conjunctiva and sclera normal. Eyelids normal. ENT: TM's Normal. Pharynx normal. Uvula midline. Moist mucous membranes. No trismus noted. No drooling noted. No muffled voice noted. Neck: Normal inspection. Neck supple. FROM. No adenopathy. Thyroid Normal. No meningeal signs. No neck mass noted. CVS: Normal heart rate and rhythm. Heart sound normal. No murmurs noted. Pulses normal throughout. Respiratory: No respiratory distress. Painless inspiration. Breath sounds normal. No wheezes/rales/rhonchi noted. Chest nontender. No accessory muscle usage noted or decreased air movement noted. Abdomen: Distended, nontender, Bowel sounds normal in all 4 quadrants. No distention noted. No organomegaly noted. No visible injury noted. Back: No CVA tenderness. Full range of motion noted. Skin: Skin warm and dry. Normal skin color. Normal skin turgor. No rashes/lesions/lacerations noted. Extremities: No lower extremity edema. Extremities exhibit normal range of motion. Extremities nontender. Neuro: Oriented X 3. Cranial nerve exam: II-XII are grossly intact No motor deficit. No sensory deficit. Reflexes normal. Course Course Course Narrative: 56-year-old male with history of CAZARES liver failure (on that transplant last at [facility]) came in from PCP office for concern deterioration of his general condition, patient emergency department has no complaints, stable vital signs (in particular no hypotension), labs are at baseline (was chronic hyponatremia, chronic anemia), a left shift but no source of infection, no abdominal pain or concern of SBP, level within normal, patient is awake and alert and oriented x3, patient given option to go to rehab versus go home patient preferred to go home. Will discharge the patient home with instruction to follow-up with PCP. Medical Decision Making Medical Records Medical records reviewed: Yes I reviewed the patient's medical records. Lab Data Lab results reviewed: Yes I reviewed the patient's lab results. Result diagrams: 10/12/21 13:06 10/12/21 13:27 Labs: Lab Results 10/12/21 10/12/21 10/12/21 Range/Units 13:06 13:07 13:07 WBC 10.1 (4.8-10.8) X10*3/uL RBC 2.49 L (4.60-5.80) X10*6/uL Hgb 9.0 L (14.0-18.0) g/dl Hct 26.6 L (42.0-52.0) % MCV 106.8 H (80.0-98.0) fL MCH 36.1 H (27.0-33.0) pg MCHC 33.8 (31.0-36.0) g/dl RDW 16.1 H (11.0-16.0) % Plt Count 63 L (160-400) X10*3/uL MPV 9.6 (9.4-12.4) fL Immature Gran % (Auto) 1.7 H (0.0-0.4) % Neut % (Auto) 77.9 H (45-73) % Lymph % (Auto) 5.5 L (20-40) % [place] % (Auto) 11.7 H (2-11) % Eos % (Auto) 2.7 (0-4) % Baso % (Auto) 0.5 (0-2) % Lymph # (Auto) 0.6 L (1.2-4.9) X10*3/uL [place] # (Auto) 1.2 (0.1-1.2) X10*3/uL Eos # (Auto) 0.3 (0.0-0.4) X10*3/uL Baso # (Auto) 0.1 (0.0-0.2) X10*3/uL Abs Immat Gran (auto) 0.17 H (0.00-0.03) X10*3/uL Absolute Neuts (auto) 7.9 (2.0-8.3) x10*3/uL Absolute Nucleated RBC 0.000 (0.0-0.012) X10*3/uL Nucleated RBC % (auto) 0.0 (0.0-0.2) /100WBC PT (9.9-13.0) SEC INR (0.9-1.1) APTT (24.1-38.0) SEC Sodium (135-145) mmol/L Potassium (3.3-5.1) mmol/L Chloride (96-108) mmol/L Carbon Dioxide (22-29) mmol/L Anion Gap (12-20) BUN (9-16) mg/dL Creatinine (0.5-1.4) mg/dL Estim Creat Clear Calc Estimated GFR Random Glucose (60-115) mg/dL Calcium (8.4-10.2) mg/dL Total Bilirubin (0.0-1.0) mg/dL Direct Bilirubin (0.0-0.5) mg/dL AST (5-37) U/L ALT (0-40) U/L Alkaline Phosphatase (39-117) U/L Ammonia 52 (13-55) umol/L Troponin I High Sens < 3.5 (<3.5-35.0) ng/L B-Natriuretic Peptide (<100) pg/mL Total Protein (6.5-8.0) g/dL Albumin (3.5-5.0) g/dL Lipase (8-78) U/L Urine Color Urine Appearance Urine pH (5.0-8.0) Ur Specific Winfred (1.005-1.025) Urine Protein (NEG-TRACE) MG/DL Urine Glucose (UA) (NEG) MG/DL Urine Ketones (NEG) MG/DL Urine Blood (NEG) Urine Nitrite (NEG) Ur Leukocyte Esterase (NEG) Urine RBC (0) /HPF Urine WBC (0-4) /HPF Ur Squamous Epith Cells /LPF Urine Bacteria /LPF Influenza Type A (PCR) (Negative) Influenza Type B (PCR) (Negative) RSV RNA Qual (PCR) (Negative) SARS-CoV-2 RNA (RT-PCR) (Negative) 10/12/21 10/12/21 10/12/21 Range/Units 13:07 13:07 13:08 WBC (4.8-10.8) X10*3/uL RBC (4.60-5.80) X10*6/uL Hgb (14.0-18.0) g/dl Hct (42.0-52.0) % MCV (80.0-98.0) fL MCH (27.0-33.0) pg MCHC (31.0-36.0) g/dl RDW (11.0-16.0) % Plt Count (160-400) X10*3/uL MPV (9.4-12.4) fL Immature Gran % (Auto) (0.0-0.4) % Neut % (Auto) (45-73) % Lymph % (Auto) (20-40) % [place] % (Auto) (2-11) % Eos % (Auto) (0-4) % Baso % (Auto) (0-2) % Lymph # (Auto) (1.2-4.9) X10*3/uL [place] # (Auto) (0.1-1.2) X10*3/uL Eos # (Auto) (0.0-0.4) X10*3/uL Baso # (Auto) (0.0-0.2) X10*3/uL Abs Immat Gran (auto) (0.00-0.03) X10*3/uL Absolute Neuts (auto) (2.0-8.3) x10*3/uL Absolute Nucleated RBC (0.0-0.012) X10*3/uL Nucleated RBC % (auto) (0.0-0.2) /100WBC PT 21.9 H (9.9-13.0) SEC INR 1.9 H (0.9-1.1) APTT 33.4 (24.1-38.0) SEC Sodium (135-145) mmol/L Potassium (3.3-5.1) mmol/L Chloride (96-108) mmol/L Carbon Dioxide (22-29) mmol/L Anion Gap (12-20) BUN (9-16) mg/dL Creatinine (0.5-1.4) mg/dL Estim Creat Clear Calc Estimated GFR Random Glucose (60-115) mg/dL Calcium (8.4-10.2) mg/dL Total Bilirubin (0.0-1.0) mg/dL Direct Bilirubin (0.0-0.5) mg/dL AST (5-37) U/L ALT (0-40) U/L Alkaline Phosphatase (39-117) U/L Ammonia (13-55) umol/L Troponin I High Sens (<3.5-35.0) ng/L B-Natriuretic Peptide 33 (<100) pg/mL Total Protein (6.5-8.0) g/dL Albumin (3.5-5.0) g/dL Lipase (8-78) U/L Urine Color Urine Appearance Urine pH (5.0-8.0) Ur Specific Winfred (1.005-1.025) Urine Protein (NEG-TRACE) MG/DL Urine Glucose (UA) (NEG) MG/DL Urine Ketones (NEG) MG/DL Urine Blood (NEG) Urine Nitrite (NEG) Ur Leukocyte Esterase (NEG) Urine RBC (0) /HPF Urine WBC (0-4) /HPF Ur Squamous Epith Cells /LPF Urine Bacteria /LPF Influenza Type A (PCR) NEGATIVE (Negative) Influenza Type B (PCR) NEGATIVE (Negative) RSV RNA Qual (PCR) NEGATIVE (Negative) SARS-CoV-2 RNA (RT-PCR) NEGATIVE (Negative) 10/12/21 10/12/21 Range/Units 13:27 15:10 WBC (4.8-10.8) X10*3/uL RBC (4.60-5.80) X10*6/uL Hgb (14.0-18.0) g/dl Hct (42.0-52.0) % MCV (80.0-98.0) fL MCH (27.0-33.0) pg MCHC (31.0-36.0) g/dl RDW (11.0-16.0) % Plt Count (160-400) X10*3/uL MPV (9.4-12.4) fL Immature Gran % (Auto) (0.0-0.4) % Neut % (Auto) (45-73) % Lymph % (Auto) (20-40) % [place] % (Auto) (2-11) % Eos % (Auto) (0-4) % Baso % (Auto) (0-2) % Lymph # (Auto) (1.2-4.9) X10*3/uL [place] # (Auto) (0.1-1.2) X10*3/uL Eos # (Auto) (0.0-0.4) X10*3/uL Baso # (Auto) (0.0-0.2) X10*3/uL Abs Immat Gran (auto) (0.00-0.03) X10*3/uL Absolute Neuts (auto) (2.0-8.3) x10*3/uL Absolute Nucleated RBC (0.0-0.012) X10*3/uL Nucleated RBC % (auto) (0.0-0.2) /100WBC PT (9.9-13.0) SEC INR (0.9-1.1) APTT (24.1-38.0) SEC Sodium 127 L (135-145) mmol/L Potassium 4.2 (3.3-5.1) mmol/L Chloride 98 (96-108) mmol/L Carbon Dioxide 23 (22-29) mmol/L Anion Gap 10 L (12-20) BUN 21 H D (9-16) mg/dL Creatinine 1.20 (0.5-1.4) mg/dL Estim Creat Clear Calc 76.8 Estimated GFR > 60 Random Glucose 106 (60-115) mg/dL Calcium 8.0 L (8.4-10.2) mg/dL Total Bilirubin 5.9 H (0.0-1.0) mg/dL Direct Bilirubin 2.1 H (0.0-0.5) mg/dL AST 64 H (5-37) U/L ALT 29 (0-40) U/L Alkaline Phosphatase 135 H (39-117) U/L Ammonia (13-55) umol/L Troponin I High Sens (<3.5-35.0) ng/L B-Natriuretic Peptide (<100) pg/mL Total Protein 7.3 (6.5-8.0) g/dL Albumin 1.8 L (3.5-5.0) g/dL Lipase 31 (8-78) U/L Urine Color YELLOW Urine Appearance CLEAR Urine pH 6.0 (5.0-8.0) Ur Specific Winfred 1.010 (1.005-1.025) Urine Protein NEG (NEG-TRACE) MG/DL Urine Glucose (UA) NEG (NEG) MG/DL Urine Ketones NEG (NEG) MG/DL Urine Blood TRACE (NEG) Urine Nitrite NEG (NEG) Ur Leukocyte Esterase NEG (NEG) Urine RBC 1-4 (0) /HPF Urine WBC 1-4 (0-4) /HPF Ur Squamous Epith Cells 2+ /LPF Urine Bacteria TRACE /LPF Influenza Type A (PCR) (Negative) Influenza Type B (PCR) (Negative) RSV RNA Qual (PCR) (Negative) SARS-CoV-2 RNA (RT-PCR) (Negative) Imaging Data Chest x-ray: Attestation: I personally reviewed and interpreted this imaging study as follows: Radiologist's impression: Acute cardiopulmonary process. Discharge Plan Discharge Clinical Impression: Hyponatremia, Decompensated hepatic cirrhosis Patient Disposition: Home, Self-Care Instructions: Hyponatremia (ED) Prescriptions: No Action torsemide 20 mg tablet 20 mg PO BID 30 Days Qty: 60 0RF ferrous sulfate [Iron (ferrous sulfate)] 325 mg (65 mg iron) tablet 325 mg PO DAILY 30 Days Qty: 30 0RF spironolactone 100 mg tablet 1 tab PO DAILY 0RF Hold Instructions: Resume on 07/02/21. temazepam 15 mg capsule 1 cap PO BEDTIME PRN (Reason: Insomnia) 0RF escitalopram oxalate 10 mg tablet 1 tab PO DAILY 0RF lactulose [Constulose] 10 gram/15 mL solution 15 ml PO BID 0RF Referrals: Miroslava Murphy MD [Primary Care Provider] -
[2021-10-12 12:46] VITALS: BP 131/68; BP 148/84; PULSE 100; RESP 18; TEMP 36.8; O2SAT 98; O2SAT 99; BMI 40.4
[2021-10-12 13:12] LABS: MANUAL DIFF FLAG NO
[2021-10-12 13:14] LABS: Basophils Absolute Auto 0.1 X10*3/uL (0.0-0.2); Basophils Percent Auto 0.5 % (0-2); Eosinophils Absolute Auto 0.3 X10*3/uL (0.0-0.4); Eosinophils Percent Auto 2.7 % (0-4); Hematocrit 26.6 % (42.0-52.0); Imm Gran Abs Auto 0.17 X10*3/uL (0.00-0.03); Imm Gran Pct Auto 1.7 % (0.0-0.4); Lymphocytes Absolute Auto 0.6 X10*3/uL (1.2-4.9); Lymphocytes Percent Auto 5.5 % (20-40); Mean Corpuscular HGB Conc 33.8 g/dl (31.0-36.0); Mean Corpuscular Hemoglobin 36.1 pg (27.0-33.0); Mean Corpuscular Volume 106.8 fL (80.0-98.0); Mean Platelet Volume 9.6 fL (9.4-12.4); Monocytes Absolute Auto 1.2 X10*3/uL (0.1-1.2); Monocytes Percent Auto 11.7 % (2-11); Neutrophils Absolute Auto 7.9 x10*3/uL (2.0-8.3); Neutrophils Percent Auto 77.9 % (45-73); Red Blood Count 2.49 X10*6/uL (4.60-5.80); Red Cell Distribution Width 16.1 % (11.0-16.0); White Blood Count 10.1 X10*3/uL (4.8-10.8)
[2021-10-12 13:16] LABS: Platelet Count 63 X10*3/uL (160-400)
[2021-10-12 13:21] LABS: Ammonia 52 umol/L (13-55)
[2021-10-12 13:22] LABS: INTERNATIONAL NORM RATIO 1.9 (0.9-1.1); Prothrombin Time 21.9 SEC (9.9-13.0)
[2021-10-12 13:25] LABS: Partial Thromboplastin Time 33.4 SEC (24.1-38.0)
[2021-10-12 13:34] LABS: B Type Natriuretic Peptide 33 pg/mL (<100); Troponin-I High Sensitivity < 3.5 ng/L (<3.5-35.0)
[2021-10-12 13:51] LABS: Alanine Aminotransferase 29 U/L (0-40); Albumin Level 1.8 g/dL (3.5-5.0); Alkaline Phosphatase 135 U/L (39-117); Anion Gap 10 (12-20); Aspartate Amino Transferase 64 U/L (5-37); Bilirubin Direct 2.1 mg/dL (0.0-0.5); Bilirubin Total 5.9 mg/dL (0.0-1.0); Blood Urea Nitrogen 21 mg/dL (9-16); Carbon Dioxide 23 mmol/L (22-29); Chloride 98 mmol/L (96-108); Creatinine Clr Calc Pharmacy 76.8; Estimated Glomerular Filt Rate > 60; Glucose Random 106 mg/dL (60-115); Lipase 31 U/L (8-78); Potassium 4.2 mmol/L (3.3-5.1); Sodium 127 mmol/L (135-145); Total Protein 7.3 g/dL (6.5-8.0)
[2021-10-12 13:55] LABS: Influenza A PCR NEGATIVE (Negative); Influenza B PCR NEGATIVE (Negative); Resp Syncy Virus RNA Qual PCR NEGATIVE (Negative); SARS COV2 PCR INHOUSE NEGATIVE (Negative)
--- NOTE | 2021-10-12 14:09 | PHA.MEDREC ---
Pharmacy Consult ? Medication Reconciliation Pharmacy has completed the medication reconciliation. Patient reported medications. Mira Gordon, SánchezD
[2021-10-12 15:16] LABS: Appearance Urine CLEAR; Color Urine YELLOW; Glucose Urine UA NEG (NEG); Leukocyte Esterase Urine NEG (NEG); Nitrite Urine NEG (NEG); UACC Culture Trigger NO; Urine Blood TRACE (NEG); Urine Ketones NEG (NEG); Urine Protein NEG (NEG-TRACE)
[2021-10-12 15:33] LABS: Bacteria Urine TRACE /LPF; Squamous Epithelial Cell Urine 2+ /LPF
== END 2021-10-12 16:44 | disposition home or self-care (01) ==
PROVIDERS: Emergency Provider Emergency Medicine; PCP Student in an Organized Health Care Education/Training Program
DX: E87.1 Hypo-osmolality and hyponatremia (principal); K72.90 Hepatic failure, unspecified without coma; Z20.822 Contact with and (suspected) exposure to COVID-19; R53.1 Weakness; K75.81 Nonalcoholic steatohepatitis (NASH); Z91.81 History of falling
CPT/HCPCS: 0241U; 36415; 71045; 80048; 80076; 81001; 82140; 83690; 83880; 84484; 85025; 85610; 85730; 93005; 99283; 99284